=== PATIENT | female | born 1980 | race Caucasian/White ===

== ENCOUNTER 2018-08-19 14:47 | Emergency (ER) | payer SELFPAY ==
[~2018-08-19] VITALS: Ht 162.6 cm; Wt 95.3 kg
[~2018-08-19 14:47] MED LIST: CYCL10TA45 PO; IBUP800T26 PO; NORFLEX; PANT40TA2 PO; PRD20T PO
--- OUTSIDE RECORDS SUMMARY | 2018-08-19 14:52 | XMS REPORT | Clinical Summary ---
Author Author [facility] Organization [facility] Address Unknown Phone Unavailable Care Team Providers Care Event Planning Manager Name Role Phone Rodolfo Mooney MD Unavailable Lalo Johnson DO PCP Aminata Zelaya RN Unavailable Unavailable Celsa Sutherland RN Unavailable Unavailable Patricia Archer MD Unavailable Unavailable Source Comments Some departments are not documenting in the electronic medical record. If you do not see the information that you expected, contact Release of Information in the Health Information Management department at [phone] for further assistance in locating additional records.[facility] Allergies Active Allergy Reactions Severity Noted Date Comments Cephalexin RASH 03/15/2011 Current Medications Prescription Sig. Disp. Refills Start End Date Status Date ibuprofen (MOTRIN) 800 mg Take 800 mg by mouth as Active tablet Needed for Pain. Active Problems Problem Noted Date Polysubstance abuse (HCC) 04/03/2012 Epidural abscess, L2-L5 03/28/2012 HNP (herniated nucleus pulposus) 03/24/2011 Family History Medical History Relation Name Comments Alcohol abuse Father Cancer Father Depression Father Hypertension Father Heart Attack Maternal Grandmother Hyperlipidemia Mother Hypertension Mother Relation Name Status Comments Brother Alive Father Maternal Grandmother Mother Alive Sister Alive Social History Tobacco Use Types Packs/Day Years Used Date Former Smoker Cigarettes Smokeless Tobacco: Never Used Alcohol Use Drinks/Week oz/Week Comments Yes rarely Sex Assigned at Date Recorded Not on file Last Filed Vital Signs Vital Sign Reading Time Taken Blood Pressure 133/85 02/01/2016 10:19 AM [employer] Pulse 61 02/01/2016 10:19 AM [employer] Temperature 36.9 C (98.5 F) 03/28/2012 11:10 AM CDT Respiratory Rate - - Oxygen Saturation 100% 03/28/2012 11:10 AM CDT Inhaled Oxygen - - Concentration Weight 114.8 kg (253 lb) 02/01/2016 10:19 AM [employer] Height 162.6 cm (5' 4") 02/01/2016 10:19 AM [employer] Body Mass Index 43.43 02/01/2016 10:19 AM [employer] Plan of Treatment Health Maintenance Due Date Last Done Comments PHYSICAL (COMPREHENSIVE) 1988 EXAM PERTUSSIS VACCINE 1992 TETANUS VACCINE 1998 CERVICAL CANCER SCREENING 2011 INFLUENZA VACCINE 08/26/2018 HIV SCREENING Completed 02/20/2012 Results Not on filefrom Last 3 Months
--- OUTSIDE RECORDS SUMMARY | 2018-08-19 14:52 | XMS REPORT ---
Author Author CARISA PALUMBO [facility] Address [address] [place] [address] Care Team Providers Care Slot Machine Key Person Name Role Phone PALUMBOKAELYNCARISA Unavailable PROBLEMS Type Condition ICD9-CM Code [id number] Code Onset Dates Condition Status SNOMED Code Problem Tobacco abuse counseling Z71.6 Active 185096580 Problem Morbid obesity E66.01 Active 480340231 Problem Right upper quadrant pain R10.11 Active 525733033 Problem Anxiety F41.9 Active 42484164 Problem Bilateral thoracic back pain M54.6 Active 461307443 Problem Pre-diabetes R73.09 Active 0504456 Problem PCOS (polycystic ovarian syndrome) E28.2 Active 71373387 Problem PMS (premenstrual syndrome) N94.3 Active 89092915 Problem Onychomycosis B35.1 Active 452394616 Problem General medical exam Z00.00 Active 999363075 Problem Substance abuse F19.10 Active 26098684 Problem Tobacco abuse Z72.0 Active 47847467 Problem H/O bursectomy Z98.890 Active 228646589 Problem Lumbago M54.5 Active 950296642 ALLERGIES Substance Reaction Event Type Date Status Keflex Unknown Drug Allergy Apr, Active SOCIAL HISTORY Never Assessed PLAN OF CARE VITAL SIGNS MEDICATIONS Unknown Medications RESULTS No Results PROCEDURES No Known procedures IMMUNIZATIONS No Known Immunizations MEDICAL (GENERAL) HISTORY Type Description Date Medical History abnormal liver function tests Medical History back pain Medical History degenerative disease lumbosacral spine Medical History depression Medical History past drug addiction Surgical History right shoulder arthroscopy 2006 Surgical History right carpal tunnel release Surgical History tonsillectomy and adenoidectomy 1993 Surgical History section 2006 Surgical History Back Surgery. 2010- [facility]/ 2010 and 2011- [facility] 06/2010, 01/2011, 01/2012 Surgical History Right knee scope 10/24/2016 Hospitalization History Surgery(s)/Childbirth(s) only Hospitalization History CHF/ Pneumonia- Post Delivery of Child Hospitalization History Pain r/t back surgery- hospitalized for pain control Hospitalization History [facility] detox in [place] 02/2016 Hospitalization History MSSA after 3rd back surgery
--- OUTSIDE RECORDS SUMMARY | 2018-08-19 14:52 | XMS REPORT ---
Author Author CARISA Shin Organization [facility] Address [address] [place] [address] Care Team Providers Care Hearings Reporter Name Role Phone CARISA Shin Unavailable PROBLEMS Type Condition ICD9-CM Code [id number] Code Onset Dates Condition Status SNOMED Code Problem Lumbar radiculopathy M54.16 Active 031544346 Problem Reactive depression F32.9 Active 81358488 Problem BMI 40.0-44.9, adult Z68.41 Active 101171800 Problem Methamphetamine use F15.10 Active 839059663 Problem Tobacco use disorder, moderate, dependence F17.200 Active 67467715 Problem Cannabis use disorder, severe, dependence F12.20 Active 12535577 Problem Opioid use disorder, severe, in sustained remission F11.21 Active 47768088 Problem Methamphetamine use disorder, severe, 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 62570656 Problem Substance induced mood disorder F19.94 Active 747502912 Problem H/O bursectomy Z98.890 Active 130569571 Problem Tobacco abuse Z72.0 Active 05023888 Problem Onychomycosis B35.1 Active 413099947 Problem Pre-diabetes R73.09 Active 9972025 Problem Substance abuse F19.10 Active 46568968 Problem PMS (premenstrual syndrome) N94.3 Active 37660473 Problem PCOS (polycystic ovarian syndrome) E28.2 Active 85519749 Problem Anxiety F41.9 Active 23309102 ALLERGIES Substance Reaction Event Type Date Status Keflex Unknown Drug Allergy Apr, Active ENCOUNTERS Encounter Location Date Diagnosis [facility] [address] [facility] [id number] [address] Jan, Epigastric pain R10.13 and Methamphetamine use F15.10 [facility] [address] [facility] [id number] [address] Feb, 2018 Methamphetamine use disorder, severe, 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 ; Opioid use disorder, severe, in sustained remission F11.21 ; Tobacco use disorder, moderate, dependence F17.200 ; Cannabis use disorder, severe, dependence F12.20 and Substance induced mood disorder F19.94 [facility] [id number] [place] [address] Nov, BMI 40.0-44.9, adult Z68.41 ; Lumbar radiculopathy M54.16 and Reactive depression F32.9 [place] [id number] [place] [address] 30 Sep, 2017 Strain of lumbar region, initial encounter S39.012A and BMI 40.0-44.9, adult Z68.41 [facility] [id number] [place] [address] Sep, Acute left-sided low back pain with left-sided sciatica M54.42 [place] [id number] [place] [address] Sep, [facility] [address] [address] Sep, Lumbago M54.5 and Anxiety F41.9 [place] [id number] [place] [address] Jul, Tobacco abuse Z72.0 ; Anxiety F41.9 and Bilateral thoracic back pain M54.6 [facility] [id number] [place] [address] Jul, [facility] [address] [address] Jun, Lumbago M54.5 [place] [id number] [place] [address] 07 Apr, 2017 Annual physical exam Z00.00 ; Morbid obesity E66.01 ; Lumbago M54.5 ; History of back surgery Z98.89 ; Pre-diabetes R73.09 ; PCOS ( polycystic ovarian syndrome) E28.2 and Bilateral thoracic back pain M54.6 [facility] [address] [address] Apr, [facility] [id number] [place] [address] Jan, Annual physical exam Z00.00 ; PCOS (polycystic ovarian syndrome) E28.2 ; Substance abuse F19.10 and Pre-diabetes R73.09 [facility] [id number] [place] [address] Nov, Acute non-recurrent pansinusitis J01.40 [facility] [address] [address] Jul, [facility] [address] [address] Jul, [facility] [address] [address] Jul, Medial meniscus tear, right, subsequent encounter S83.241D [facility] [address] [id number] Jun, Dental examination Z01.20 [facility] [address] [id number] Jun, Dental examination Z01.20 [facility] [id number] [place] [address] May, Chondromalacia patellae, 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 [facility] [id number] [place] [address] May, Bilateral thoracic back pain M54.6 ; Substance abuse F19.10 and Tobacco abuse Z72.0 [facility] [id number] [place] [address] Apr, Bilateral low back pain with sciatica, sciatica laterality unspecified M54.40 [place] [id number] [place] [address] 23 Apr, 2016 Bilateral low back pain with sciatica, sciatica laterality unspecified M54.40 [place] [id number] [place] [address] 20 Apr, 2016 Acute right-sided low back pain with right-sided sciatica M54.41 [place] [address] [address] 07 Apr, 2016 PMS (premenstrual syndrome) N94.3 ; Tobacco abuse counseling Z71.6 and Right knee pain, unspecified chronicity M25.561 [place] [address] [address] March, Well woman exam Z01.419 [place] [address] [address] Feb, Methamphetamine addiction F15.20 and Folliculitis L73.9 [place] [address] [address] Feb, [place] [address] [address] Jan, Well woman exam Z01.419 ; Routine gynecological examination V72.31 and Substance abuse F19.10 [facility] [address] [address] Jan, Sore throat J02.9 and Acute bronchitis J20.9 [facility] [id number] [place] [id number] Jan, Dental caries K02.9 [place] [address] [address] Jan, Morbid obesity E66.01 ; Pre-diabetes R73.09 and Onychomycosis B35.1 [facility] [address] [address] Jan, Immunization due Z23 [facility] [address] [id number] [id number] Jan, 2016 Encounter for dental examination Z01.20 [place] [id number] [place] [address] 12 Dec, 2015 Sinusitis, acute maxillary J01.00 [facility] [address] [place] [address]- [address] 27 Nov, 2015 [facility] [id number] [place] [address] Nov, [place] [id number] [place] [address] 8[address] Nov, [facility] [id number] [place] [address]73- [address] Nov, [facility] [id number] [place] [address]97[address] Nov, Bilateral low back pain with sciatica, sciatica laterality unspecified M54.40 ; History of back surgery Z98.89 ; Radiculopathy, thoracic region M54.14 ; Radiculopathy of lumbosacral region M54.17 and Bilateral thoracic back pain M54.6 [place] [address] [place] [address] Nov, Morbid obesity E66.01 and General medical exam Z00.00 [place] [id number] [place] [address] Nov, Morbid obesity E66.01 and General medical exam Z00.00 [place] [id number] [place] [address] 12 Nov, 2015 General medical exam Z00.00 ; Lumbago M54.5 ; History of back surgery Z98.89 ; Bilateral low back pain with sciatica, sciatica laterality unspecified M54.40 ; Radiculopathy, thoracic region M54.14 ; Radiculopathy of lumbosacral region M54.17 and Bilateral thoracic back pain M54.6 [facility] [address] [address] 12 Nov, 2015 General medical exam Z00.00 ; Morbid obesity E66.01 ; Substance abuse F19.10 ; Tobacco abuse Z72.0 ; Tobacco abuse counseling Z71.6 ; Lumbago M54.5 ; History of back surgery Z98.89 and Right upper quadrant pain R10.11 [facility] [address] [facility] [id number] [address] 14 Feb, 2015 [facility] [address] [address] Feb, [facility] [address] [address] Jan, [facility] [address] [address] Jan, [facility] [address] [address] Jan, [facility] [address] [address] Jan, [facility] [address] [address] Oct, [facility] [address] [address] Oct, [facility] [address] [address] Sep, [facility] [address] [address] Sep, [facility] [address] [address] Jul, [facility] [address] [address] Jul, [facility] [id number] [address] May, [facility] [address] [id number] [place] [address] May, [facility] [place] [facility] [address] [id number] [place] [address] May, [facility] [address] [id number] [place] [address] May, [facility] [place] [facility] [address] [id number] [place] [address] Apr, [facility] [address] [id number] [place] [address] Apr, [facility] [address] [id number] [place] [address] Apr, [facility] [address] [facility] [place] [id number] [place] [address] Apr, [facility] [address] [id number] [place] [address] Apr, [facility] [address] [id number] [place] [address] Apr, [facility] [address] [facility] [place] [id number] [place] [address] 18 Apr, 2014 [facility] [place] [facility] [address] [id number] [place] [address] 16 Apr, 2014 [facility] [address] [id number] [place] [address] 15 Apr, 2014 [facility] [place] [facility] [address] [id number] [place] [address] 13 Apr, 2014 [facility] [place] [facility] [address] [id number] [place] [address] 12 Apr, 2014 [facility] [address] [id number] [place] [address] Apr, IMMUNIZATIONS No Known Immunizations SOCIAL HISTORY Never Assessed REASON FOR VISIT Establish Care/ foot and back pain. Reports foot pain has been on and off for a month on right foot. Reports has drop foot on right side from back surgery. C/O back pain feels like someone has fist in her back. CBnatalia RN, Wants a script for nail fungus lamisil didnt work. Per LAS we need to see what her liver function is first. PLAN OF CARE Activity Details Follow Up 3 Months Reason:pcos, back pain. VITAL SIGNS Height 64 in 2017-05-02 Weight 249.4 lbs 2017-05-02 Temperature 98.0 degrees Fahrenheit 2017-05-02 Heart Rate 76 bpm 2017-05-02 Respiratory Rate 20 2017-05-02 BMI 42.80 kg/m2 2017-05-02 Blood pressure systolic 118 mmHg 2017-05-02 Blood pressure diastolic 80 mmHg 2017-05-02 MEDICATIONS Medication Instructions Dosage Frequency Start Date End Date Duration Status Ibuprofen 200 MG Orally every 6 hrs 1 tablet with food or milk as needed 6h Active Metformin HCl 500 MG Orally Twice a day 1 tablet with meals 12h Apr, 30 day(s) Active Nabumetone 500 MG Orally Twice a day 1 tablet 12h Apr, 30 days Active Gabapentin 100 MG Orally 3 times a day 1 tablet 8h Apr, 30 days Active RESULTS Name Result Date Reference Range A1C (IN HOUSE) 2017-05-02 A1C IN HOUSE 5.5 4.3 - 5.6 % Previous A1c 5.6 Lot 0716 Exp date 01/2019 Xray : Spine, Thoracic 2 views (IN HOUSE) 2017-05-02 PROCEDURES Procedure Date Ordered Result Body Site X-RAY EXAM OF THORACIC SPINE May 02, 2017 GLYCATED HEMOGLOBIN TEST May 02, 2017 VENIPUNCT, ROUTINE* May 02, 2017 COMPLETE CBC W/AUTO DIFF WBC May 02, 2017 ASSAY OF INSULIN May 02, 2017 COMPREHEN METABOLIC PANEL May 02, 2017 LIPID PANEL May 02, 2017 INSTRUCTIONS MEDICATIONS ADMINISTERED No Known Medications MEDICAL (GENERAL) HISTORY Type Description Date Medical History abnormal liver function tests Medical History back pain Medical History degenerative disease lumbosacral spine Medical History depression Medical History past drug addiction Surgical History right shoulder arthroscopy 2005 Surgical History right carpal tunnel release 2006/2007 Surgical History tonsillectomy and adenoidectomy 1993 Surgical History section 2005 Surgical History Back Surgery. 2010- [facility]/ 2011 and 2011- [facility] 06/2010, 01/2011, 01/2012 Surgical History Right knee scope 10/24/2016 Hospitalization History Surgery(s)/Childbirth(s) only Hospitalization History CHF/ Pneumonia- Post Delivery of Child Hospitalization History Pain r/t back surgery- hospitalized for pain control x3 Hospitalization History [facility] detox in [place] 02/2016 Hospitalization History MSSA after 3rd back surgery
--- OUTSIDE RECORDS SUMMARY | 2018-08-19 14:52 | XMS REPORT ---
Author Author JULIETA MEDINA [facility] [employer] Address Unknown Phone Unavailable Care Team Providers Care Financial Aid Name Role Phone JULIETA MEDINA Unavailable Allergies No Known Allergies Problems Problem Type Condition Code Onset Dates Condition Status Problem Tobacco abuse counseling Z71.6 Active Problem Substance abuse F19.10 Active Problem Tobacco abuse Z72.0 Active Problem PMS (premenstrual syndrome) N94.3 Active Problem Pre-diabetes R73.09 Active Problem Bilateral thoracic back pain M54.6 Active Problem General medical exam Z00.00 Active Problem Morbid obesity E66.01 Active Problem Onychomycosis B35.1 Active Problem PCOS (polycystic ovarian syndrome) E28.2 Active Assessment Chondromalacia patellae, 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
--- OUTSIDE RECORDS SUMMARY | 2018-08-19 14:52 | XMS REPORT ---
Author Author KIMANI POLLACK Organization [facility] Address [address] [place] [address] Care Team Providers Care Relay Repairer Name Role Phone KIMANI POLLACK Unavailable PROBLEMS Type Condition ICD9-CM Code [id number] Code Onset Dates Condition Status SNOMED Code Problem Lumbar radiculopathy M54.16 Active 570523023 Problem Reactive depression F32.9 Active 68823233 Problem BMI 40.0-44.9, adult Z68.41 Active 753615991 Problem Methamphetamine use F15.10 Active 799028127 Problem Tobacco use disorder, moderate, dependence F17.200 Active 18977334 Problem Cannabis use disorder, severe, dependence F12.20 Active 20164072 Problem Opioid use disorder, severe, in sustained remission F11.21 Active 24806117 Problem Methamphetamine use disorder, severe, 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 05727222 Problem Substance induced mood disorder F19.94 Active 019717029 Problem H/O bursectomy Z98.890 Active 132541077 Problem Tobacco abuse Z72.0 Active 27174801 Problem Onychomycosis B35.1 Active 275761344 Problem Pre-diabetes R73.09 Active 5334768 Problem Substance abuse F19.10 Active 43637363 Problem PMS (premenstrual syndrome) N94.3 Active 76440073 Problem PCOS (polycystic ovarian syndrome) E28.2 Active 62544283 Problem Anxiety F41.9 Active 54409789 ALLERGIES Substance Reaction Event Type Date Status Keflex facial rash Drug Allergy March, Active ENCOUNTERS Encounter Location Date Diagnosis [facility] [id number] [place] [address] March, Lumbar radiculopathy M54.16 and Pre-diabetes R73.09 [facility] [id number] [address] 01 Mar, 2018 Epigastric pain R10.13 and Methamphetamine use F15.10 [facility] [address] [address] 06 Dec, 2018 Methamphetamine use disorder, severe, 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 ; Opioid use disorder, severe, in sustained remission F11.21 ; Tobacco use disorder, moderate, dependence F17.200 ; Cannabis use disorder, severe, dependence F12.20 and Substance induced mood disorder F19.94 [place] [address] [address] Nov, BMI 40.0-44.9, adult Z68.41 ; Lumbar radiculopathy M54.16 and Reactive depression F32.9 [place] [address] [address] 30 Sep, 2017 Strain of lumbar region, initial encounter S39.012A and BMI 40.0-44.9, adult Z68.41 [facility] [address] [address] Sep, Acute left-sided low back pain with left-sided sciatica M54.42 [place] [address] [address] Sep, [place] [address] [address] Sep, Lumbago M54.5 and Anxiety F41.9 [place] [address] [address] Jul, Tobacco abuse Z72.0 ; Anxiety F41.9 and Bilateral thoracic back pain M54.6 [place] [address] [address] Jul, [facility] [address] [address] Jun, Lumbago M54.5 [place] [address] [address] Apr, Annual physical exam Z00.00 ; Morbid obesity E66.01 ; Lumbago M54.5 ; History of back surgery Z98.89 ; Pre-diabetes R73.09 ; PCOS ( polycystic ovarian syndrome) E28.2 and Bilateral thoracic back pain M54.6 [facility] [id number] [place] [address] 05 Apr, 2017 [facility] [address] [address] Jan, Annual physical exam Z00.00 ; PCOS (polycystic ovarian syndrome) E28.2 ; Substance abuse F19.10 and Pre-diabetes R73.09 [facility] [id number] [place] [address] Nov, Acute non-recurrent pansinusitis J01.40 [place] [address] [address] Jul, [facility] [id number] [place] [address] Jul, [place] [address] [address] Jul, Medial meniscus tear, right, subsequent encounter S83.241D [facility] [id number] [place] [id number] Jun, Dental examination Z01.20 [facility] [address] [id number] Jun, Dental examination Z01.20 [facility] [id number] [place] [address]- [address] May, Chondromalacia patellae, 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 [facility] [id number] [place] [address]- [address] May, Bilateral thoracic back pain M54.6 ; Substance abuse F19.10 and Tobacco abuse Z72.0 [place] [address] [place] [address] 29 Apr, 2016 Bilateral low back pain with sciatica, sciatica laterality unspecified M54.40 [facility] [address] [address] 23 Apr, 2016 Bilateral low back pain with sciatica, sciatica laterality unspecified M54.40 [facility] [address] [address] 20 Apr, 2016 Acute right-sided low back pain with right-sided sciatica M54.41 [place] [address] [address] 07 Apr, 2016 PMS (premenstrual syndrome) N94.3 ; Tobacco abuse counseling Z71.6 and Right knee pain, unspecified chronicity M25.561 [facility] [address] [address] March, Well woman exam Z01.419 [place] [address] [address] Feb, Methamphetamine addiction F15.20 and Folliculitis L73.9 [place] [address] [address] Feb, [facility] [address] [address] Jan, Well woman exam Z01.419 ; Routine gynecological examination V72.31 and Substance abuse F19.10 [facility] [id number] [place] [address] Jan, Sore throat J02.9 and Acute bronchitis J20.9 [facility] [address] [id number] Jan, Dental caries K02.9 [facility] [address] [address] Jan, Morbid obesity E66.01 ; Pre-diabetes R73.09 and Onychomycosis B35.1 [facility] [address] [address] 22 Jan, 2016 Immunization due Z23 [facility] [address] [address] 15 Jan, 2016 Encounter for dental examination Z01.20 [facility] [id number] [place] [address] 19602- [address] 12 Dec, 2015 Sinusitis, acute maxillary J01.00 [facility] [address] [place] [address] 112[address]- [address] 27 Nov, 2015 [facility] [id number] [place] [address]- [address] 22 Nov, 2015 [facility] [id number] [place] [address] 90[address]- [address] Nov, [facility] [id number] [place] [address]60- [address] Nov, [facility] [id number] [place] [address] Nov, Bilateral low back pain with sciatica, sciatica laterality unspecified M54.40 ; History of back surgery Z98.89 ; Radiculopathy, thoracic region M54.14 ; Radiculopathy of lumbosacral region M54.17 and Bilateral thoracic back pain M54.6 [facility] [address] [place] [address] 39[address] Nov, Morbid obesity E66.01 and General medical exam Z00.00 [facility] [address] [place] [address] 26[address]- [address] 19 Nov, 2015 Morbid obesity E66.01 and General medical exam Z00.00 [facility] [address] [place] [address] 95958- [address] 12 Nov, 2015 General medical exam Z00.00 ; Lumbago M54.5 ; Bilateral low back pain with sciatica, sciatica laterality unspecified M54.40 ; History of back surgery Z98.89 ; Radiculopathy, thoracic region M54.14 ; Radiculopathy of lumbosacral region M54.17 and Bilateral thoracic back pain M54.6 [facility] [address] [address] 12 Nov, 2015 General medical exam Z00.00 ; Morbid obesity E66.01 ; Substance abuse F19.10 ; Tobacco abuse Z72.0 ; Tobacco abuse counseling Z71.6 ; Lumbago M54.5 ; History of back surgery Z98.89 and Right upper quadrant pain R10.11 [facility] [id number] [place] [address]- [address] 14 Feb, 2015 [facility] [id number] [place] [address]- [address] Feb, [facility] [id number] [place] [address] 6[address]- [address] Jan, [facility] [id number] [place] [address] 33586- 64[address] Jan, [facility] [id number] [place] [address] 48475- 9[address] Jan, [facility] [address] [address] Jan, [facility] [address] [place] [address] 79[address]- [address] Oct, [facility] [id number] [address] Oct, [facility] [id number] [place] [address] 500923- 0[address] Sep, [facility] [id number] [place] [address] [id number]- 0[address] Sep, [facility] [id number] [place] [address] 976023- 9[address] Jul, [facility] [place] [facility] [address] [id number] [place] [address] Jul, [facility] [place] [facility] [address] [id number] [place] [address] May, [facility] [place] [facility] [address] [id number] [place] [address] May, [facility] [place] [facility] [address] [id number] [place] [address] May, [facility] [place] [facility] [address] [id number] [place] [address] May, [facility] [place] [facility] [address] [id number] [place] [address] Apr, [facility] [place] [facility] [address] [id number] [place] [address] Apr, [facility] [place] [facility] [address] [id number] [place] [address]- [address] Apr, [facility] [place] [facility] [address] [id number] [place] [address] Apr, [facility] [place] [facility] [address] [id number] [place] [address] 1985 Apr, [facility] [place] [facility] [address] [id number] [place] [address]- [address] Apr, [facility] [place] [facility] [address] [id number] [place] [address]- [address] 18 Apr, 2014 [facility] [place] [facility] [address] [id number] [place] [address]- [address] 16 Apr, 2014 [facility] [place] [facility] [address] [id number] [place] [address] 15 Apr, 2014 [facility] [place] [facility] [address] [id number] [place] [address]- 28[address] 13 Apr, 2014 [facility] [place] [facility] [address] [id number] [place] [address] Apr, [facility] [address] [facility] [id number] [place] [address] Apr, IMMUNIZATIONS No Known Immunizations SOCIAL HISTORY Never Assessed REASON FOR VISIT lower back pain, hip pain, left leg pain. PT has had multiple back surgeries and is in constant pain-[place] PLAN OF CARE Activity Details Follow Up 3 Months Reason: VITAL SIGNS Height 64 in 2018-04-04 Weight 232.7 lbs 2018-04-04 Temperature 98.3 degrees Fahrenheit 2018-04-04 Heart Rate 68 bpm 2018-04-04 Respiratory Rate 20 2018-04-04 BMI 39.94 kg/m2 2018-04-04 Blood pressure systolic 104 mmHg 2018-04-04 Blood pressure diastolic 72 mmHg 2018-04-04 MEDICATIONS Medication Instructions Dosage Frequency Start Date End Date Duration Status Cyclobenzaprine HCl 10 mg Orally 2 times a day 1 tablet as needed 12h Sep, Active Chantix 1 MG Orally Twice a day 1 tablet 12h Active Ibuprofen 800 MG Orally Three times a day 1 tablet 8h Active Lyrica 150 MG Orally Three times a day 1 cap 8h March, Active RESULTS Name Result Date Reference Range A1C (IN HOUSE) 2018-04-04 A1C IN HOUSE 5.2 4.3 - 5.6 % Previous A1c 5.5 Lot [id number] Exp date 12/2019 PROCEDURES Procedure Date Ordered Result Body Site GLYCATED HEMOGLOBIN TEST April 04, 2018 INSTRUCTIONS MEDICATIONS ADMINISTERED No Known Medications MEDICAL (GENERAL) HISTORY Type Description Date Medical History abnormal liver function tests Medical History back pain Medical History degenerative disease lumbosacral spine Medical History depression Medical History past drug addiction Surgical History right shoulder arthroscopy 2005 Surgical History right carpal tunnel release Surgical History tonsillectomy and adenoidectomy 1993 Surgical History section 2006 Surgical History Back Surgery. 2010- [facility]/ 2010 and 2011- [facility] 06/2010, 01/2011, 01/2012 Surgical History Right knee scope 10/24/2016 Hospitalization History Surgery(s)/Childbirth(s) only Hospitalization History CHF/ Pneumonia- Post Delivery of Child Hospitalization History Pain r/t back surgery- hospitalized for pain control x3 Hospitalization History [facility] detox in [place] 02/2016 Hospitalization History MSSA after 3rd back surgery
--- OUTSIDE RECORDS SUMMARY | 2018-08-19 14:53 | XMS REPORT ---
Author Author KIMANI POLLACK [facility] Address [address] [place] [address] Care Team Providers Care Business Liaison Officer Name Role Phone KMIANI POLLACK Unavailable PROBLEMS Type Condition ICD9-CM Code JEH39-HU Code Onset Dates Condition Status SNOMED Code Problem Lumbar radiculopathy M54.16 Active 574150268 Problem Reactive depression F32.9 Active 08920949 Problem BMI 40.0-44.9, adult Z68.41 Active 893234530 Problem Methamphetamine use F15.10 Active 424051758 Problem Tobacco use disorder, moderate, dependence F17.200 Active 95034120 Problem Cannabis use disorder, severe, dependence F12.20 Active 57317492 Problem Opioid use disorder, severe, in sustained remission F11.21 Active 63317674 Problem Methamphetamine use disorder, severe, 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 05590577 Problem Substance induced mood disorder F19.94 Active 306713343 Problem H/O bursectomy Z98.890 Active 549673611 Problem Tobacco abuse Z72.0 Active 96992787 Problem Onychomycosis B35.1 Active 474183489 Problem Pre-diabetes R73.09 Active 5861610 Problem Substance abuse F19.10 Active 21909413 Problem PMS (premenstrual syndrome) N94.3 Active 23897082 Problem PCOS (polycystic ovarian syndrome) E28.2 Active 08565175 Problem Anxiety F41.9 Active 28359577 ALLERGIES Substance Reaction Event Type Date Status Keflex Unknown Drug Allergy Jul, Active ENCOUNTERS Encounter Location Date Diagnosis [facility] [address] [facility] [id number] [address] Jan, Epigastric pain R10.13 and Methamphetamine use F15.10 [facility] [address] [facility] [id number], [place] [address] Dec, Methamphetamine use disorder, severe, 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 ; Opioid use disorder, severe, in sustained remission F11.21 ; Tobacco use disorder, moderate, dependence F17.200 ; Cannabis use disorder, severe, dependence F12.20 and Substance induced mood disorder F19.94 [place] [id number] [place] [address] Nov, BMI 40.0-44.9, adult Z68.41 ; Lumbar radiculopathy M54.16 and Reactive depression F32.9 [place] [id number] [place] [address] Sep, Strain of lumbar region, initial encounter S39.012A and BMI 40.0-44.9, adult Z68.41 [facility] [id number] [place] [address] Sep, Acute left-sided low back pain with left-sided sciatica M54.42 [place] [id number] [place] [address] Sep, [address] [address] Sep, Lumbago M54.5 and Anxiety F41.9 [place] [id number] [place] [address] Jul, Tobacco abuse Z72.0 ; Anxiety F41.9 and Bilateral thoracic back pain M54.[address] [address] Jul, [place] [address] [address] Jun, Lumbago M54.[address] [address] Apr, Annual physical exam Z00.00 ; Morbid obesity E66.01 ; Lumbago M54.5 ; History of back surgery Z98.89 ; Pre-diabetes R73.09 ; PCOS ( polycystic ovarian syndrome) E28.2 and Bilateral thoracic back pain M54.6 [facility] [id number] [place] [address] Apr, [facility] [address] [address] Jan, Annual physical exam Z00.00 ; PCOS (polycystic ovarian syndrome) E28.2 ; Substance abuse F19.10 and Pre-diabetes R73.09 [facility] [id number] [place] [address] Nov, Acute non-recurrent pansinusitis J01.40 [facility] [address] [address] Jul, [facility] [address] [address] Jul, [facility] [address] [address] Jul, Medial meniscus tear, right, subsequent encounter S83.241D [facility] [address] [id number] Jun, Dental examination Z01.20 [facility] [address] [id number] Jun, Dental examination Z01.20 [facility] [id number] [place] [address] May, Chondromalacia patellae, 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 [facility] [id number] [place] [address] May, Bilateral thoracic back pain M54.6 ; Substance abuse F19.10 and Tobacco abuse Z72.0 [facility] [id number] [place] [address] Apr, Bilateral low back pain with sciatica, sciatica laterality unspecified M54.40 [facility] [address] [place] [address] 23 Apr, 2016 Bilateral low back pain with sciatica, sciatica laterality unspecified M54.40 [place] [address] [address] 20 Apr, 2016 Acute right-sided low back pain with right-sided sciatica M54.41 [place] [address] [address] 07 Apr, 2016 PMS (premenstrual syndrome) N94.3 ; Tobacco abuse counseling Z71.6 and Right knee pain, unspecified chronicity M25.561 [place] [address] [address] March, Well woman exam Z01.419 [place] [address] [address] Feb, Methamphetamine addiction F15.20 and Folliculitis L73.9 [facility] [address] [address] Feb, [place] [address] [address] Jan, Well woman exam Z01.419 ; Routine gynecological examination V72.31 and Substance abuse F19.10 [facility] [address] [address] Jan, Sore throat J02.9 and Acute bronchitis J20.9 [facility] [address] [id number] [place] [id number] Jan, Dental caries K02.9 [facility] [address] [address] Jan, Morbid obesity E66.01 ; Pre-diabetes R73.09 and Onychomycosis B35.1 [facility] [id number] [place] [address] Jan, Immunization due Z23 [facility] [address] [place] [address] [id number] [id number] Jan, 2016 Encounter for dental examination Z01.20 [facility] [id number] [place] [address] 12 Dec, 2015 Sinusitis, acute maxillary J01.00 [facility] [address], [place] [address] 27 Nov, 2015 [facility] [id number] [place] [address] Nov, [facility] [address], [place] [address] Nov, [facility] [address] [place] [address] Nov, [facility] [address] [place] [address] Nov, Bilateral low back pain with sciatica, sciatica laterality unspecified M54.40 ; History of back surgery Z98.89 ; Radiculopathy, thoracic region M54.14 ; Radiculopathy of lumbosacral region M54.17 and Bilateral thoracic back pain M54.6 [place] [address], [place] [address] Nov, Morbid obesity E66.01 and General medical exam Z00.00 [place] [address], [place] [address] Nov, Morbid obesity E66.01 and General medical exam Z00.00 [place] [address], [place] [address] 12 Nov, 2015 General medical exam Z00.00 ; Lumbago M54.5 ; History of back surgery Z98.89 ; Bilateral low back pain with sciatica, sciatica laterality unspecified M54.40 ; Radiculopathy, thoracic region M54.14 ; Radiculopathy of lumbosacral region M54.17 and Bilateral thoracic back pain M54.6 [facility] [address], [place] [address] 12 Nov, 2015 General medical exam Z00.00 ; Morbid obesity E66.01 ; Substance abuse F19.10 ; Tobacco abuse Z72.0 ; Tobacco abuse counseling Z71.6 ; Lumbago M54.5 ; History of back surgery Z98.89 and Right upper quadrant pain R10.11 [facility] [address], [place] [address] 14 Feb, 2015 [facility] [address], [place] [address] Feb, [facility] [id number] [place] [address] Jan, [facility] [id number] [place] [address] Jan, [facility] [id number] [place] [address] Jan, [facility] [address], [place] [address] Jan, [facility] [address], [place] [address] Oct, [facility] [address], [place] [address] Oct, [facility] [address], [place] [address] Sep, [facility] [address], [place] [address] Sep, [facility] [id number] [place] [address] Jul, [facility] [address] Jul, [facility] [id number] [place] [address] May, [facility] [address] [id number] [place] [address] May, [facility] [address] [facility] [id number], [place] [address] May, [facility] [address] [facility] [id number] [place] [address] May, [facility] [address] [id number], [place] [address] Apr, [facility] [address] [id number] [place] [address] Apr, [facility] [address] [facility] [id number] [place] [address] Apr, [facility] [address] [facility] [id number], [place] [address] Apr, [facility] [address] [facility] [id number], [place] [address] Apr, [facility] [address] [facility] [id number], [place] [address] Apr, [facility] [address] [facility] [id number], [place] [address] Apr, [facility] [address] [facility] [id number], [place] [address] 16 Apr, 2014 [facility] [address] [facility] [id number], [place] [address] 15 Apr, 2014 [facility] [address] [facility] [id number], [place] [address] 13 Apr, 2014 [facility] [address] [facility] [id number], [place] [address] Apr, [facility] [address] [facility] [id number], [place] [address] Apr, IMMUNIZATIONS No Known Immunizations SOCIAL HISTORY Never Assessed REASON FOR VISIT wants to talk about possibilty of uping the dosage of Neurotin LGorhamMA, wanting to start Chantix again PLAN OF CARE Activity Details Follow Up 4 Weeks Reason: VITAL SIGNS Height 64 in 2017-08-21 Weight 241 lbs 2017-08-21 Temperature 98.3 degrees Fahrenheit 2017-08-21 Heart Rate 96 bpm 2017-08-21 Respiratory Rate 20 2017-08-21 BMI 41.36 kg/m2 2017-08-21 Blood pressure systolic 130 mmHg 2017-08-21 Blood pressure diastolic 88 mmHg 2017-08-21 MEDICATIONS Medication Instructions Dosage Frequency Start Date End Date Duration Status Gabapentin 100 MG Orally 3 times a day 1 tablet 8h Apr, 30 days Active Metformin HCl 500 MG Orally Twice a day 1 tablet with meals 12h Apr, 30 day(s) Active Zoloft 50 mg Orally Once a day 1 tablet 24h Jul, 30 day(s) Active Chantix Starting Month Tony 0.5 MG X 11 & 1 mg x 42 Orally 2 times a day as directed Jul, Aug, 30 days Active Nabumetone 500 MG Orally Twice a day 1 tablet 12h Apr, 30 days Active RESULTS No Results PROCEDURES No Known procedures INSTRUCTIONS MEDICATIONS ADMINISTERED No Known Medications MEDICAL (GENERAL) HISTORY Type Description Date Medical History abnormal liver function tests Medical History back pain Medical History degenerative disease lumbosacral spine Medical History depression Medical History past drug addiction Surgical History right shoulder arthroscopy 2005 Surgical History right carpal tunnel release Surgical History tonsillectomy and adenoidectomy 1993 Surgical History section 2005 Surgical History Back Surgery. 2009- [facility] / 2010 and 2011- [facility] 06/2010, 01/2011, 01/2012 Surgical History Right knee scope 10/24/2016 Hospitalization History Surgery(s)/Childbirth(s) only Hospitalization History CHF/ Pneumonia- Post Delivery of Child Hospitalization History Pain r/t back surgery- hospitalized for pain control x3 Hospitalization History [facility] in [place] 02/2016 Hospitalization History [facility] after 3rd back surgery
--- OUTSIDE RECORDS SUMMARY | 2018-08-19 14:53 | XMS REPORT ---
Author Author CARTER SENIOR Organization [facility] Address [address] [place] [address] Care Team Providers Care Line Worker Name Role Phone CARTER SENIOR Unavailable PROBLEMS Type Condition ICD9-CM Code BPT55-MS Code Onset Dates Condition Status SNOMED Code Problem Lumbar radiculopathy M54.16 Active 189375841 Problem Reactive depression F32.9 Active 87076465 Problem BMI 40.0-44.9, adult Z68.41 Active 674680122 Problem Methamphetamine use F15.10 Active 092948542 Problem Tobacco use disorder, moderate, dependence F17.200 Active 22211882 Problem Cannabis use disorder, severe, dependence F12.20 Active 27564897 Problem Opioid use disorder, severe, in sustained remission F11.21 Active 27247700 Problem Methamphetamine use disorder, severe, 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 94619459 Problem Substance induced mood disorder F19.94 Active 799278688 Problem H/O bursectomy Z98.890 Active 934141610 Problem Tobacco abuse Z72.0 Active 56118388 Problem Onychomycosis B35.1 Active 934546948 Problem Pre-diabetes R73.09 Active 2806232 Problem Substance abuse F19.10 Active 16323839 Problem PMS (premenstrual syndrome) N94.3 Active 81827272 Problem PCOS (polycystic ovarian syndrome) E28.2 Active 14710650 Problem Anxiety F41.9 Active 70712857 ALLERGIES Substance Reaction Event Type Date Status Keflex Unknown Drug Allergy Sep, Active ENCOUNTERS Encounter Location Date Diagnosis [facility] [address] [facility] [id number] [address] March, Lumbar radiculopathy M54.16 and Pre-diabetes R73.09 [facility] [address] [facility] [id number] [address] Jan, Epigastric pain R10.13 and Methamphetamine use F15.10 [facility] [address] [place] [id number] [place] [address] 06 Dec, 2018 Methamphetamine use disorder, severe, 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 ; Opioid use disorder, severe, in sustained remission F11.21 ; Tobacco use disorder, moderate, dependence F17.200 ; Cannabis use disorder, severe, dependence F12.20 and Substance induced mood disorder F19.94 [place] [address] [address] Nov, BMI 40.0-44.9, adult Z68.41 ; Lumbar radiculopathy M54.16 and Reactive depression F32.9 [place] [address] [address] Sep, Strain of lumbar region, initial encounter S39.012A and BMI 40.0-44.9, adult Z68.41 [facility] [address] [address] Sep, Acute left-sided low back pain with left-sided sciatica M54.42 [place] [address] [address] Sep, [place] [address] [address] Sep, Lumbago M54.5 and Anxiety F41.9 [place] [address] [address] Jul, Tobacco abuse Z72.0 ; Anxiety F41.9 and Bilateral thoracic back pain M54.6 [place] [address] [address] Jul, [facility] [address] [address] Jun, Lumbago M54.5 [place] [address] [address] Apr, Annual physical exam Z00.00 ; Morbid obesity E66.01 ; Lumbago M54.5 ; History of back surgery Z98.89 ; Pre-diabetes R73.09 ; PCOS ( polycystic ovarian syndrome) E28.2 and Bilateral thoracic back pain M54.6 [facility] [address] [place] [id number] [place] [address] 05 Apr, 2017 [facility] [address] [address] Jan, Annual physical exam Z00.00 ; PCOS (polycystic ovarian syndrome) E28.2 ; Substance abuse F19.10 and Pre-diabetes R73.09 [facility] [address] [address] Nov, Acute non-recurrent pansinusitis J01.40 [facility] [address] [address] Jul, [facility] [address] [address] Jul, [place] [address] [address] Jul, Medial meniscus tear, right, subsequent encounter S83.241D [facility] [address] [id number] Jun, Dental examination Z01.20 [facility] [address] [id number] Jun, Dental examination Z01.20 [facility] [address] [place] [id number] [place] [address] May, Chondromalacia patellae, 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 [facility] [address] [address] May, Bilateral thoracic back pain M54.6 ; Substance abuse F19.10 and Tobacco abuse Z72.0 [facility] [address] [address] 29 Apr, 2016 Bilateral low back pain with sciatica, sciatica laterality unspecified M54.40 [facility] [address] [address] 23 Apr, 2016 Bilateral low back pain with sciatica, sciatica laterality unspecified M54.40 [facility] [address] [address] 20 Apr, 2016 Acute right-sided low back pain with right-sided sciatica M54.41 [place] [address] [address] 07 Apr, 2016 PMS (premenstrual syndrome) N94.3 ; Tobacco abuse counseling Z71.6 and Right knee pain, unspecified chronicity M25.561 [facility] [address] [address] March, Well woman exam Z01.419 [place] [address] [address] Feb, Methamphetamine addiction F15.20 and Folliculitis L73.9 [place] [address] [address] Feb, [facility] [address] [address] Jan, Well woman exam Z01.419 ; Routine gynecological examination V72.31 and Substance abuse F19.10 [facility] [id number] [place] [address] Jan, Sore throat J02.9 and Acute bronchitis J20.9 [facility] [address] [id number] Jan, Dental caries K02.9 [facility] [address] [address] Jan, Morbid obesity E66.01 ; Pre-diabetes R73.09 and Onychomycosis B35.1 [facility] [address] [id number] [address] 22 Jan, 2016 Immunization due Z23 [facility] [address] [id number] 15 Jan, 2016 Encounter for dental examination Z01.20 [facility] [address] [address] 12 Dec, 2015 Sinusitis, acute maxillary J01.00 [facility] [address] [address] 27 Nov, 2015 [facility] [address] [place] [id number] [place] [address] 22 Nov, 2015 [facility] [address] [place] [address] Nov, [facility] [address] [place] [id number] [place] [address] Nov, [facility] [address] [address] Nov, Bilateral low back pain with sciatica, sciatica laterality unspecified M54.40 ; History of back surgery Z98.89 ; Radiculopathy, thoracic region M54.14 ; Radiculopathy of lumbosacral region M54.17 and Bilateral thoracic back pain M54.6 [facility] [address] [address] Nov, Morbid obesity E66.01 and General medical exam Z00.00 [facility] [address] [address] 19 Nov, 2015 Morbid obesity E66.01 and General medical exam Z00.00 [facility] [address] [address] 12 Nov, 2015 General medical exam Z00.00 ; Lumbago M54.5 ; History of back surgery Z98.89 ; Bilateral low back pain with sciatica, sciatica laterality unspecified M54.40 ; Radiculopathy, thoracic region M54.14 ; Radiculopathy of lumbosacral region M54.17 and Bilateral thoracic back pain M54.6 [facility] [address] [id number] [place] [address] 12 Nov, 2015 General medical exam Z00.00 ; Morbid obesity E66.01 ; Substance abuse F19.10 ; Tobacco abuse Z72.0 ; Tobacco abuse counseling Z71.6 ; Lumbago M54.5 ; History of back surgery Z98.89 and Right upper quadrant pain R10.11 [facility] [address] [id number] [place] [address] 14 Feb, 2015 [facility] [id number] [place] [address] Feb, [facility] [id number] [place] [address] Jan, [facility] [id number] [place] [address] Jan, [facility] [id number] [place] [address] Jan, [facility] [id number] [place] [address] Jan, [facility] [id number] [place] [address] Oct, [facility] [id number] [place] [address]- [address] Oct, [facility] [id number] [place] [address]- [address] Sep, [facility] [id number] [place] [address] Sep, [facility] [id number] [place] [address] Jul, [facility] [place] [facility] [address] [id number] [place] [address] Jul, [facility] [place] [facility] [address] [id number] [place] [address] May, [facility] [place] [facility] [address] [id number] [place] [address] May, [facility] [place] [facility] [address] [id number] [place] [address] May, [facility] [place] [facility] [address] [id number] [place] [address] May, [facility] [place] [facility] [address] [id number] [place] [address] Apr, [facility] [place] [facility] [address] [id number] [place] [address] Apr, [facility] [place] [facility] [address] [id number] [place] [address] Apr, [facility] [place] [facility] [address] [id number] [place] [address] Apr, [facility] [place] [facility] [address] [id number] [place] [address] Apr, [facility] [place] [facility] [address] [id number] [place] [address] Apr, [facility] [place] [facility] [address] [id number] [place] [address] 18 Apr, 2014 [facility] [place] [facility] [address] [id number] [place] [address] 16 Apr, 2014 [facility] [place] [facility] [address] [id number] [place] [address] 15 Apr, 2014 [facility] [place] [facility] [address] [id number] [place] [address] 13 Apr, 2014 [facility] [place] [facility] [address] [id number] [place] [address] Apr, [facility] [address] [facility] [id number] [place] [address] Apr, IMMUNIZATIONS Vaccine Route Administration Date Status SOLUMEDROL (UP TO 125 MG) IM Intramuscular Oct 24, 2017 Administered SOCIAL HISTORY Never Assessed REASON FOR VISIT back pain/getting up in truck and felt back caught PLAN OF CARE VITAL SIGNS Height 64 in 2017-10-24 Weight 249 lbs 2017-10-24 Temperature 98.1 degrees Fahrenheit 2017-10-24 Heart Rate 92 bpm 2017-10-24 Respiratory Rate 22 2017-10-24 BMI 42.74 kg/m2 2017-10-24 Blood pressure systolic 128 mmHg 2017-10-24 Blood pressure diastolic 84 mmHg 2017-10-24 MEDICATIONS Medication Instructions Dosage Frequency Start Date End Date Duration Status Metformin HCl 500 MG Orally Twice a day 1 tablet with meals 12h 07 Apr, 2017 30 day(s) Active Nabumetone 500 MG Orally Twice a day 1 tablet 12h 30 Active PredniSONE 20 MG Orally Once a day 1 tablet 24h Sep, Oct, 30 day(s) Active Ibuprofen 200 MG Orally every 6 hrs 1 tablet with food or milk as needed 6h Not-Taking Zoloft 100 MG Orally Once a day 1 tablet 24h Jul, 30 day(s) Active Gabapentin 300 MG Orally 3 times a day 1 tablet 8h 30 Active Cyclobenzaprine HCl 10 mg Orally 2 times a day 1 tablet as needed 12h Sep, Active RESULTS No Results PROCEDURES Procedure Date Ordered Result Body Site SOLUMEDROL (UP TO 125 MG) Oct 24, 2017 THER/PROPH/DIAG INJ, SC/IM Oct 24, 2017 INSTRUCTIONS MEDICATIONS ADMINISTERED No Known Medications MEDICAL (GENERAL) HISTORY Type Description Date Medical History abnormal liver function tests Medical History back pain Medical History degenerative disease lumbosacral spine Medical History depression Medical History past drug addiction Surgical History right shoulder arthroscopy 2006 Surgical History right carpal tunnel release 2006/2007 Surgical History tonsillectomy and adenoidectomy 1993 Surgical History section 2006 Surgical History Back Surgery. 2010- [facility]/ 2010 and 2011- [facility] 06/2010, 01/2011, 01/2012 Surgical History Right knee scope 10/24/2016 Hospitalization History Surgery(s)/Childbirth(s) only Hospitalization History CHF/ Pneumonia- Post Delivery of Child Hospitalization History Pain r/t back surgery- hospitalized for pain control x3 Hospitalization History [facility] [place] 02/2016 Hospitalization History [facility] after 3rd back surgery
--- OUTSIDE RECORDS SUMMARY | 2018-08-19 14:53 | XMS REPORT ---
Author Author CARISA Shin Organization [facility] Address [address] [place] [address] Care Team Providers Care Environmental Compliance Manager Name Role Phone CARISA Shin Unavailable PROBLEMS Type Condition ICD9-CM Code SEQ57-TB Code Onset Dates Condition Status SNOMED Code Problem Lumbar radiculopathy M54.16 Active 692747034 Problem Reactive depression F32.9 Active 67739329 Problem BMI 40.0-44.9, adult Z68.41 Active 276280157 Problem Methamphetamine use F15.10 Active 594880219 Problem Tobacco use disorder, moderate, dependence F17.200 Active 37986221 Problem Cannabis use disorder, severe, dependence F12.20 Active 39076337 Problem Opioid use disorder, severe, in sustained remission F11.21 Active 76002330 Problem Methamphetamine use disorder, severe, 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 35107963 Problem Substance induced mood disorder F19.94 Active 158091928 Problem H/O bursectomy Z98.890 Active 260103035 Problem Tobacco abuse Z72.0 Active 63715125 Problem Onychomycosis B35.1 Active 124415754 Problem Pre-diabetes R73.09 Active 9249889 Problem Substance abuse F19.10 Active 41878148 Problem PMS (premenstrual syndrome) N94.3 Active 81603442 Problem PCOS (polycystic ovarian syndrome) E28.2 Active 15002447 Problem Anxiety F41.9 Active 30495219 ALLERGIES No Information ENCOUNTERS Encounter Location Date Diagnosis [facility] [address] 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 ; Opioid use disorder, severe, in sustained remission F11.21 ; Tobacco use disorder, moderate, dependence F17.200 ; Cannabis use disorder, severe, dependence F12.20 and Substance induced mood disorder F19.94 [place] [id number] [place] [address] Nov, BMI 40.0-44.9, adult Z68.41 ; Lumbar radiculopathy M54.16 and Reactive depression F32.9 [place] [address] [address] Sep, Strain of lumbar region, initial encounter S39.012A and BMI 40.0-44.9, adult Z68.41 [facility] [address] [address] Sep, Acute left-sided low back pain with left-sided sciatica M54.42 [place] [address] [address] Sep, [place] [address] [address] Sep, Lumbago M54.5 and Anxiety F41.[address] [address] Jul, Tobacco abuse Z72.0 ; Anxiety F41.9 and Bilateral thoracic back pain M54.6 [place] [address] [address] Jul, [place] [address] [address] Jun, Lumbago M54.[address] [address] Apr, Annual physical exam Z00.00 ; Morbid obesity E66.01 ; Lumbago M54.5 ; History of back surgery Z98.89 ; Pre-diabetes R73.09 ; PCOS ( polycystic ovarian syndrome) E28.2 and Bilateral thoracic back pain M54.6 [facility] [id number] [place] [address] Apr, [facility] [id number] [place] [id number] Jan, Annual physical exam Z00.00 ; PCOS (polycystic ovarian syndrome) E28.2 ; Substance abuse F19.10 and Pre-diabetes R73.09 [facility] [id number] [place] [address] Nov, Acute non-recurrent pansinusitis J01.40 [facility] [address] [address] Jul, [facility] [address] [address] Jul, [facility] [address] [address] Jul, Medial meniscus tear, right, subsequent encounter S83.241D [facility] [address] [id number] Jun, Dental examination Z01.20 [facility] [address] [id number] Jun, Dental examination Z01.20 [facility] [id number] [place] [address] May, Chondromalacia patellae, 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 [facility] [id number] [place] [address] May, Bilateral thoracic back pain M54.6 ; Substance abuse F19.10 and Tobacco abuse Z72.0 [facility] [id number] [place] [address] Apr, Bilateral low back pain with sciatica, sciatica laterality unspecified M54.40 [facility] [address] [address] 23 Apr, 2016 Bilateral low back pain with sciatica, sciatica laterality unspecified M54.40 [place] [id number] [place] [address] 20 Apr, 2016 Acute right-sided low back pain with right-sided sciatica M54.41 [place] [address] [address] 07 Apr, 2016 PMS (premenstrual syndrome) N94.3 ; Tobacco abuse counseling Z71.6 and Right knee pain, unspecified chronicity M25.561 [place] [address] [address] March, Well woman exam Z01.419 [place] [address] [address] Feb, Methamphetamine addiction F15.20 and Folliculitis L73.9 [place] [address] [address] Feb, [facility] [address] [address] Jan, Well woman exam Z01.419 ; Routine gynecological examination V72.31 and Substance abuse F19.10 [facility] [id number] [place] [address] Jan, Sore throat J02.9 and Acute bronchitis J20.9 [facility] [id number] [place] [id number] Jan, Dental caries K02.9 [facility] [address] [address] Jan, Morbid obesity E66.01 ; Pre-diabetes R73.09 and Onychomycosis B35.1 [facility] [id number] [place] [address] Jan, Immunization due Z23 [facility] [address] [id number] [id number] Jan, 2016 Encounter for dental examination Z01.20 [facility] [address] [place] [address] 12 Dec, 2015 Sinusitis, acute maxillary J01.00 [facility] [address], [place] [address] 27 Nov, 2015 [facility] [id number] [place] [address] Nov, [facility] [address] [place] [address] Nov, [facility] [id number] [place] [address] Nov, [facility] [id number] [place] [address] Nov, Bilateral low back pain with sciatica, sciatica laterality unspecified M54.40 ; History of back surgery Z98.89 ; Radiculopathy, thoracic region M54.14 ; Radiculopathy of lumbosacral region M54.17 and Bilateral thoracic back pain M54.6 [place] [address], [place] [address] Nov, Morbid obesity E66.01 and General medical exam Z00.00 [place] [address], [place] [address] Nov, Morbid obesity E66.01 and General medical exam Z00.00 [facility] [id number], [place] [address] 12 Nov, 2015 General medical exam Z00.00 ; Lumbago M54.5 ; History of back surgery Z98.89 ; Bilateral low back pain with sciatica, sciatica laterality unspecified M54.40 ; Radiculopathy, thoracic region M54.14 ; Radiculopathy of lumbosacral region M54.17 and Bilateral thoracic back pain M54.6 [place] [address], [place] [address] 12 Nov, 2015 General medical exam Z00.00 ; Morbid obesity E66.01 ; Substance abuse F19.10 ; Tobacco abuse Z72.0 ; Tobacco abuse counseling Z71.6 ; Lumbago M54.5 ; History of back surgery Z98.89 and Right upper quadrant pain R10.11 [facility] [address], [place] [address] 14 Feb, 2015 [facility] [address] [facility] [id number], [place] [address] Feb, [facility] [address] [address] Jan, [facility] [address], [place] [address] Jan, [facility] [address], [place] [address] Jan, [facility] [address], [place] [address] Jan, [facility] [address], [place] [address] Oct, [facility] [address], [place] [address] Oct, [facility] [address], [place] [address] Sep, [facility] [address], [place] [address] Sep, [facility] [address], [place] [address] Jul, [facility] [address], [place] [address] Jul, [facility] [address], [place] [address] May, [facility] [address] [facility] [id number], [place] [address] May, [facility] [address] [facility] [id number], [place] [address] May, [facility] [address] [facility] [id number], [place] [address] May, [facility] [address] [id number], [place] [address] Apr, [facility] [address] [id number] [place] [address] Apr, [facility] [address] [facility] [id number], [place] [address] Apr, [facility] [address] [facility] [id number], [place] [address] Apr, [facility] [address] [facility] [id number], [place] [address] Apr, [facility] [address] [facility] [id number], [place] [address] Apr, [facility] [address] [facility] [id number], [place] [address] 18 Apr, 2014 [facility] [address] [facility] [id number], [place] [address] 16 Apr, 2014 [facility] [address] [facility] [id number], [place] [address] 15 Apr, 2014 [facility] [address] [facility] [id number], [place] [address] 13 Apr, 2014 [facility] [address] [facility] [id number], [place] [address] Apr, [facility] [address] [facility] [id number], [place] [address] Apr, IMMUNIZATIONS No Known Immunizations SOCIAL HISTORY Never Assessed REASON FOR VISIT Medication Refill PLAN OF CARE VITAL SIGNS MEDICATIONS Medication Instructions Dosage Frequency Start Date End Date Duration Status Gabapentin 100 MG Orally 3 times a day 1 tablet 8h Apr, 30 days Active Nabumetone 500 MG Orally [...] Surgical History Back Surgery. 2009- [facility]/ 2010 and 2011- [facility] 06/2010, 01/2011, 01/2012 Surgical History Right knee scope 10/24/2016 Hospitalization History Surgery(s)/Childbirth(s) only Hospitalization History CHF/ Pneumonia- Post Delivery of Child Hospitalization History Pain r/t back surgery- hospitalized for pain control x3 Hospitalization History [facility] in [place] 02/2016 Hospitalization History [facility] after 3rd back surgery
--- OUTSIDE RECORDS SUMMARY | 2018-08-19 14:53 | XMS REPORT ---
Author Author ELIA ANTONIO Organization [employer] Address Unknown Phone Unavailable Care Team Providers Care Diesel Mechanic Name Role Phone ELIA ANTONIO CP Unavailable Allergies No Known Allergies Problems Problem Type Condition Code Onset Dates Condition Status Assessment Lumbago M54.5 Active Problem Right upper quadrant pain R10.11 Active Assessment General medical exam Z00.00 Active Problem Morbid obesity E66.01 Active Problem Substance abuse F19.10 Active Problem General medical exam Z00.00 Active Problem Lumbago M54.5 Active Problem History of back surgery Z98.89 Active Problem Tobacco abuse Z72.0 Active Problem Tobacco abuse counseling Z71.6 Active Assessment Radiculopathy of lumbosacral region M54.17 Active Assessment Radiculopathy, thoracic region M54.14 Active Assessment Bilateral low back pain with sciatica, sciatica laterality unspecified M54.40 Active Assessment Bilateral thoracic back pain M54.6 Active Assessment History of back surgery Z98.89 Active Medications No Known Medications Results No Known Results Summary Purpose [employer] Submission
--- OUTSIDE RECORDS SUMMARY | 2018-08-19 14:54 | XMS REPORT ---
Author Author CARTER SENIOR [facility] [employer] Address Unknown Phone Unavailable Care Team Providers Care Devulcanizer Tender Name Role Phone CARTER SENIOR CP Unavailable Allergies, Adverse Reactions, Alerts Substance Reaction Event Type Keflex Info Not Available Drug Allergy Problems Problem Type Condition Code Onset Dates Condition Status Problem History of back surgery Z98.89 Active Problem Tobacco abuse counseling Z71.6 Active Problem Lumbago M54.5 Active Problem Onychomycosis B35.1 Active Problem PCOS (polycystic ovarian syndrome) E28.2 Active Problem Pre-diabetes R73.09 Active Problem Substance abuse F19.10 Active Problem Tobacco abuse Z72.0 Active Problem General medical exam Z00.00 Active Problem Morbid obesity E66.01 Active Assessment Folliculitis L73.9 Active Assessment Methamphetamine addiction F15.20 Active Problem Right upper quadrant pain R10.11 Active Medications Medication Code System Code Instructions Start Date End Date Status Dosage Metformin HCl [facility] [address]-86 500 MG Orally Once a day March 16, 2016 1 tablet with meals HydrOXYzine HCl [facility] [address]-42 25 MG Orally 3 times a day March 16, 2016 1 tablet as needed Procedures Procedure Coding System Code Date Office Visit, Est Pt., Level 3 CPT-4 61600 March 16, 2016 Vital Signs Date/Time: March 16, 2016 Temperature 97.8 F Weight 236.0 lbs Height 64 in BMI 40.50 Index Blood Pressure Diastolic 80 mmHg Blood Pressure Systolic 106 mmHg Cardiac Monitoring Heart Rate 80 bpm Results No Known Results Summary Purpose [employer] Submission
--- OUTSIDE RECORDS SUMMARY | 2018-08-19 14:54 | XMS REPORT ---
Author Author KIMANI POLLACK Organization [facility] Address [address] [place] [address] Care Team Providers Care Automatic Developer Name Role Phone KIMANI POLLACK Unavailable PROBLEMS Type Condition ICD9-CM Code IAF39-PT Code Onset Dates Condition Status SNOMED Code Problem Lumbar radiculopathy M54.16 Active 095677322 Problem Reactive depression F32.9 Active 04313026 Problem BMI 40.0-44.9, adult Z68.41 Active 695818845 Problem Methamphetamine use F15.10 Active 595710408 Problem Tobacco use disorder, moderate, dependence F17.200 Active 26074990 Problem Cannabis use disorder, severe, dependence F12.20 Active 07463612 Problem Opioid use disorder, severe, in sustained remission F11.21 Active 08054063 Problem Methamphetamine use disorder, severe, 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 28477454 Problem Substance induced mood disorder F19.94 Active 168609194 Problem H/O bursectomy Z98.890 Active 789705144 Problem Tobacco abuse Z72.0 Active 62257715 Problem Onychomycosis B35.1 Active 338756554 Problem Pre-diabetes R73.09 Active 8360618 Problem Substance abuse F19.10 Active 62489447 Problem PMS (premenstrual syndrome) N94.3 Active 53713663 Problem PCOS (polycystic ovarian syndrome) E28.2 Active 40894434 Problem Anxiety F41.9 Active 05047122 ALLERGIES Substance Reaction Event Type Date Status Keflex Unknown Drug Allergy Sep, Active ENCOUNTERS Encounter Location Date Diagnosis [facility] [id number] [place] [address] March, Lumbar radiculopathy M54.16 and Pre-diabetes R73.09 [facility] [id number] [address] Jan, Epigastric pain R10.13 and Methamphetamine use F15.10 [facility] [address] [address] 06 Dec, 2018 Methamphetamine use disorder, severe, 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 ; Opioid use disorder, severe, in sustained remission F11.21 ; Tobacco use disorder, moderate, dependence F17.200 ; Cannabis use disorder, severe, dependence F12.20 and Substance induced mood disorder F19.94 [address] [address] [address] Nov, BMI 40.0-44.9, adult Z68.41 ; Lumbar radiculopathy M54.16 and Reactive depression F32.9 [place] [address] [address] 30 Sep, 2017 Strain of lumbar region, initial encounter S39.012A and BMI 40.0-44.9, adult Z68.41 [facility] [address] [address] Sep, Acute left-sided low back pain with left-sided sciatica M54.42 [place] [address] [address] Sep, [facility] [address] [address] Sep, Lumbago M54.5 and Anxiety F41.9 [place] [address] [address] Jul, Tobacco abuse Z72.0 ; Anxiety F41.9 and Bilateral thoracic back pain M54.6 [place] [address] [address] Jul, [facility] [address] [address] Jun, Lumbago M54.5 [place] [address] [address] Apr, Annual physical exam Z00.00 ; Morbid obesity E66.01 ; Lumbago M54.5 ; History of back surgery Z98.89 ; Pre-diabetes R73.09 ; PCOS ( polycystic ovarian syndrome) E28.2 and Bilateral thoracic back pain M54.6 [facility] [id number] [place] [address] 05 Apr, 2017 [facility] [address] [address] Jan, Annual physical exam Z00.00 ; PCOS (polycystic ovarian syndrome) E28.2 ; Substance abuse F19.10 and Pre-diabetes R73.09 [facility] [address] [address] Nov, Acute non-recurrent pansinusitis J01.40 [place] [address] [address] Jul, [facility] [address] [address] Jul, [place] [address] [address] Jul, Medial meniscus tear, right, subsequent encounter S83.241D [facility] [id number] [place] [id number] Jun, Dental examination Z01.20 [facility] [address] [id number] Jun, Dental examination Z01.20 [facility] [address] [address] May, Chondromalacia patellae, 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 [facility] [address] [address] May, Bilateral thoracic back pain M54.6 ; Substance abuse F19.10 and Tobacco abuse Z72.0 [address] [place] [address] 29 Apr, 2016 Bilateral low back pain with sciatica, sciatica laterality unspecified M54.40 [facility] [address] [address] 23 Apr, 2016 Bilateral low back pain with sciatica, sciatica laterality unspecified M54.40 [facility] [address] [address] 20 Apr, 2016 Acute right-sided low back pain with right-sided sciatica M54.41 [place] [address] [address] 07 Apr, 2016 PMS (premenstrual syndrome) N94.3 ; Tobacco abuse counseling Z71.6 and Right knee pain, unspecified chronicity M25.561 [facility] [address] [address] March, Well woman exam Z01.419 [place] [address] [address] Feb, Methamphetamine addiction F15.20 and Folliculitis L73.9 [place] [address] [address] Feb, [facility] [address] [address] Jan, Well woman exam Z01.419 ; Routine gynecological examination V72.31 and Substance abuse F19.10 [facility] [id number] [place] [address] Jan, Sore throat J02.9 and Acute bronchitis J20.9 [facility] [address] [id number] Jan, Dental caries K02.9 [facility] [address] [address] Jan, Morbid obesity E66.01 ; Pre-diabetes R73.09 and Onychomycosis B35.1 [facility] [address] [address] Jan, 2016 Immunization due Z23 [facility] [address] [id number] 15 Jan, 2016 Encounter for dental examination Z01.20 [facility] [id number] [place] [address] 12 Dec, 2015 Sinusitis, acute maxillary J01.00 [facility] [address] [place] [address] 27 Nov, 2015 [facility] [id number] [place] [address]- [address] 22 Nov, 2015 [facility] [id number] [place] [address] 21 Nov, 2015 [facility] [id number] [place] [address] Nov, [facility] [address] [place] [address] Nov, Bilateral low back pain with sciatica, sciatica laterality unspecified M54.40 ; History of back surgery Z98.89 ; Radiculopathy, thoracic region M54.14 ; Radiculopathy of lumbosacral region M54.17 and Bilateral thoracic back pain M54.6 [facility] [address] [address] Nov, Morbid obesity E66.01 and General medical exam Z00.00 [facility] [address] [place] [address] 19 Nov, 2015 Morbid obesity E66.01 and General medical exam Z00.00 [facility] [address] [address] 12 Nov, 2015 General medical exam Z00.00 ; Lumbago M54.5 ; Bilateral low back pain with sciatica, sciatica laterality unspecified M54.40 ; History of back surgery Z98.89 ; Radiculopathy, thoracic region M54.14 ; Radiculopathy of lumbosacral region M54.17 and Bilateral thoracic back pain M54.6 [facility] [address] [address] 12 Nov, 2015 General medical exam Z00.00 ; Morbid obesity E66.01 ; Substance abuse F19.10 ; Tobacco abuse Z72.0 ; Tobacco abuse counseling Z71.6 ; Lumbago M54.5 ; History of back surgery Z98.89 and Right upper quadrant pain R10.11 [facility] [id number] [place] [address] 14 Feb, 2015 [facility] [id number] [place] [address] Feb, [facility] [id number] [place] [address] Jan, [facility] [id number] [place] [address] 0[address] Jan, [facility] [id number] [place] [address]38- [address] Jan, [facility] [address] [address] Jan, [facility] [address] [place] [address]- [address] Oct, [facility] [id number] [address] Oct, [facility] [id number] [place] [address] Sep, [facility] [id number] [address] Sep, [facility] [address] [place] [address] Jul, [facility] [place] [facility] [address] [id number] [place] [address] Jul, [facility] [place] [facility] [address] [id number] [place] [address] May, [facility] [place] [facility] [address] [id number] [place] [address] May, [facility] [place] [facility] [address] [id number] [place] [address] May, [facility] [place] [facility] [address] [id number] [place] [address]- [address] May, [facility] [place] [facility] [address] [id number] [place] [address] Apr, [facility] [place] [facility] [address] [id number] [place] [address]- [address] Apr, [facility] [place] [facility] [address] [id number] [place] [address]- 07[address] Apr, [facility] [place] [facility] [address] [id number] [place] [address]- 6[address] Apr, [facility] [place] [facility] [address] [id number] [place] [address]- [address] Apr, [facility] [place] [facility] [address] [id number] [place] [address]- 35[address] Apr, [facility] [place] [facility] [address] [id number] [place] [address] 89[address] 18 Apr, 2014 [facility] [place] [facility] [address] [id number] [place] [address]- [address]85 16 Apr, 2014 [facility] [place] [facility] [address] [id number] [place] [address]- [address] 15 Apr, 2014 [facility] [place] [facility] [address] [id number] [place] [address]- [address] 13 Apr, 2014 [facility] [place] [facility] [address] [id number] [place] [address]- [address] Apr, [facility] [address] [facility] [id number] [place] [address] Apr, IMMUNIZATIONS No Known Immunizations SOCIAL HISTORY Never Assessed REASON FOR VISIT hurt lower back for two days--Wanda Davila MA PLAN OF CARE Activity Details Follow Up prn Reason: VITAL SIGNS Height 64 in 2017-10-25 Weight 249.5 lbs 2017-10-25 Temperature 98.3 degrees Fahrenheit 2017-10-25 Heart Rate 88 bpm 2017-10-25 Respiratory Rate 22 2017-10-25 BMI 42.82 kg/m2 2017-10-25 Blood pressure systolic 118 mmHg 2017-10-25 Blood pressure diastolic 82 mmHg 2017-10-25 MEDICATIONS Medication Instructions Dosage Frequency Start Date End Date Duration Status Nabumetone 500 MG Orally Twice a day 1 tablet 12h 30 Not-Taking Metformin HCl 500 MG Orally Twice a day 1 tablet with meals 12h 07 Apr, 2017 30 day(s) Active Zoloft 100 MG Orally Once a day 1 tablet 24h Jul, 30 day(s) Active Ibuprofen 200 MG Orally every 6 hrs 1 tablet with food or milk as needed 6h Active PredniSONE 20 MG Orally Once a day 1 tablet 24h Sep, Oct, 30 day(s) Active Cyclobenzaprine HCl 10 mg Orally 2 times a day 1 tablet as needed 12h Sep, Active Gabapentin 300 MG Orally 3 times a day 1 tablet 8h 30 Active RESULTS No Results PROCEDURES No Known [...] History section 2006 Surgical History Back Surgery. 2009- [facility]/ 2010 and 2011- [facility] 06/2010, 01/2011, 01/2012 Surgical History Right knee scope 10/24/2016 Hospitalization History Surgery(s)/Childbirth(s) only Hospitalization History CHF/ Pneumonia- Post Delivery of Child Hospitalization History Pain r/t back surgery- hospitalized for pain control x3 Hospitalization History [facility] in [place] 02/2016 Hospitalization History [facility] after 3rd back surgery
--- OUTSIDE RECORDS SUMMARY | 2018-08-19 14:54 | XMS REPORT ---
Author Author KIMANI POLLACK Organization [facility] [place] [facility] Address [address] [place] [address] Care Team Providers Care Mine Inspector Federal Name Role Phone KIMANI POLLACK Unavailable PROBLEMS Type Condition ICD9-CM Code RZH12-UX Code Onset Dates Condition Status SNOMED Code Problem Lumbar radiculopathy M54.16 Active 196771830 Problem Reactive depression F32.9 Active 11855471 Problem BMI 40.0-44.9, adult Z68.41 Active 481348405 Problem Methamphetamine use F15.10 Active 886665421 Problem Tobacco use disorder, moderate, dependence F17.200 Active 13162518 Problem Cannabis use disorder, severe, dependence F12.20 Active 44657718 Problem Opioid use disorder, severe, in sustained remission F11.21 Active 66948870 Problem Methamphetamine use disorder, severe, 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 96852336 Problem Substance induced mood disorder F19.94 Active 406382393 Problem H/O bursectomy Z98.890 Active 151209121 Problem Tobacco abuse Z72.0 Active 67458909 Problem Onychomycosis B35.1 Active 415162903 Problem Pre-diabetes R73.09 Active 7324359 Problem Substance abuse F19.10 Active 80478684 Problem PMS (premenstrual syndrome) N94.3 Active 76073429 Problem PCOS (polycystic ovarian syndrome) E28.2 Active 50180029 Problem Anxiety F41.9 Active 29202174 ALLERGIES Substance Reaction Event Type Date Status Keflex Unknown Drug Allergy Nov, Active ENCOUNTERS Encounter Location Date Diagnosis [facility] [place] [facility] [id number] [place] [address] March, Lumbar radiculopathy M54.16 and Pre-diabetes R73.09 [facility] [address] [id number] [address] Jan, Epigastric pain R10.13 and Methamphetamine use F15.10 [facility] [place] [facility] [address] [address] 06 Dec, 2018 Methamphetamine use disorder, severe, 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 ; Opioid use disorder, severe, in sustained remission F11.21 ; Tobacco use disorder, moderate, dependence F17.200 ; Cannabis use disorder, severe, dependence F12.20 and Substance induced mood disorder F19.94 [place] [address] [address] Nov, BMI 40.0-44.9, adult Z68.41 ; Lumbar radiculopathy M54.16 and Reactive depression F32.9 [place] [address] [address] 30 Sep, 2017 Strain of lumbar region, initial encounter S39.012A and BMI 40.0-44.9, adult Z68.41 [facility] [address] [address] Sep, Acute left-sided low back pain with left-sided sciatica M54.42 [place] [address] [address] Sep, [facility] [place] [facility] [address] [address] Sep, Lumbago M54.5 and Anxiety F41.9 [place] [address] [address] Jul, Tobacco abuse Z72.0 ; Anxiety F41.9 and Bilateral thoracic back pain M54.6 [place] [address] [address] Jul, [facility] [place] [facility] [address] [address] Jun, Lumbago M54.5 [place] [address] [address] Apr, Annual physical exam Z00.00 ; Morbid obesity E66.01 ; Lumbago M54.5 ; History of back surgery Z98.89 ; Pre-diabetes R73.09 ; PCOS ( polycystic ovarian syndrome) E28.2 and Bilateral thoracic back pain M54.6 [facility] [place] [facility] [id number] [place] [address] 05 Apr, 2017 [facility] [place] [facility] [address] [address] Jan, Annual physical exam Z00.00 ; PCOS (polycystic ovarian syndrome) E28.2 ; Substance abuse F19.10 and Pre-diabetes R73.09 [facility] [address] [address] Nov, Acute non-recurrent pansinusitis J01.40 [place] [address] [address] Jul, [facility] [place] [facility] [address] [address] Jul, [place] [address] [address] Jul, Medial meniscus tear, right, subsequent encounter S83.241D [facility] [id number] [place] [id number] Jun, Dental examination Z01.20 [facility] [address] [id number] Jun, Dental examination Z01.20 [facility] [place] [facility] [address] [address] May, Chondromalacia patellae, 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 [facility] [place] [facility] [address] [address] May, Bilateral thoracic back pain M54.6 ; Substance abuse F19.10 and Tobacco abuse Z72.0 [address] [place] [address] 29 Apr, 2016 Bilateral low back pain with sciatica, sciatica laterality unspecified M54.40 [facility] [place] [facility] [address] [address] 23 Apr, 2016 Bilateral low back pain with sciatica, sciatica laterality unspecified M54.40 [facility] [place] [facility] [address] [address] 20 Apr, 2016 Acute right-sided low back pain with right-sided sciatica M54.41 [place] [address] [address] 07 Apr, 2016 PMS (premenstrual syndrome) N94.3 ; Tobacco abuse counseling Z71.6 and Right knee pain, unspecified chronicity M25.561 [facility] [place] [facility] [address] [address] March, Well woman exam Z01.419 [place] [address] [address] Feb, Methamphetamine addiction F15.20 and Folliculitis L73.9 [place] [address] [address] Feb, [facility] [place] [facility] [address] [address] Jan, Well woman exam Z01.419 ; Routine gynecological examination V72.31 and Substance abuse F19.10 [facility] [id number] [place] [address] Jan, Sore throat J02.9 and Acute bronchitis J20.9 [facility] [address] [id number] Jan, Dental caries K02.9 [facility] [place] [facility] [address] [address] Jan, Morbid obesity E66.01 ; Pre-diabetes R73.09 and Onychomycosis B35.1 [facility] [address] [address] Jan, 2016 Immunization due Z23 [facility] [address] [id number] 15 Jan, 2016 Encounter for dental examination Z01.20 [facility] [place] [facility] [id number] [place] [address] 12 Dec, 2015 Sinusitis, acute maxillary J01.00 [facility] [place] [facility] [address] [place] [address] 27 Nov, 2015 [facility] [place] [facility] [id number] [place] [address]- [address] 22 Nov, 2015 [facility] [place] [facility] [id number] [place] [address] Nov, [facility] [place] [facility] [id number] [place] [address] Nov, [facility] [place] [facility] [address] [place] [address] Nov, Bilateral low back pain with sciatica, sciatica laterality unspecified M54.40 ; History of back surgery Z98.89 ; Radiculopathy, thoracic region M54.14 ; Radiculopathy of lumbosacral region M54.17 and Bilateral thoracic back pain M54.6 [facility] [place] [facility] [address] [address] Nov, Morbid obesity E66.01 and General medical exam Z00.00 [facility] [place] [facility] [address] [place] [address] 19 Nov, 2015 Morbid obesity E66.01 and General medical exam Z00.00 [facility] [place] [facility] [address] [address] 12 Nov, 2015 General medical exam Z00.00 ; Lumbago M54.5 ; History of back surgery Z98.89 ; Bilateral low back pain with sciatica, sciatica laterality unspecified M54.40 ; Radiculopathy, thoracic region M54.14 ; Radiculopathy of lumbosacral region M54.17 and Bilateral thoracic back pain M54.6 [facility] [place] [facility] [address] [address] 12 Nov, 2015 General medical exam Z00.00 ; Morbid obesity E66.01 ; Substance abuse F19.10 ; Tobacco abuse Z72.0 ; Tobacco abuse counseling Z71.6 ; Lumbago M54.5 ; History of back surgery Z98.89 and Right upper quadrant pain R10.11 [facility] [place] [facility] [id number] [place] [address] 14 Feb, 2015 [facility] [place] [facility] [id number] [place] [address] Feb, [facility] [place] [facility] [id number] [place] [address]- [address] Jan, [facility] [place] [facility] [id number] [place] [address]- [address] Jan, [facility] [place] [facility] [id number] [place] [address]- [address] Jan, [facility] [place] [facility] [address], [place] [address] Jan, [facility] [place] [facility] [address] [address] Oct, [facility] [place] [facility] [address], [place] [address] Oct, [facility] [place] [facility] [id number] [place] [address] Sep, [facility] [place] [facility] [id number] [address] Sep, [facility] [place] [facility] [address] [place] [address] 4[address] Jul, [facility] [place] [facility] [address] [id number] [place] [address] Jul, [facility] [place] [facility] [address] [id number] [place] [address] May, [facility] [place] [facility] [address] [id number] [place] [address] May, [facility] [place] [facility] [address] [id number] [place] [address] May, [facility] [place] [facility] [address] [id number] [place] [address] May, [facility] [place] [facility] [address] [id number] [place] [address] Apr, [facility] [place] [facility] [address] [id number] [place] [address] Apr, [facility] [place] [facility] [address] [id number] [place] [address] Apr, [facility] [place] [facility] [address] [id number] [place] [address]- [address] Apr, [facility] [place] [facility] [address] [id number] [place] [address] Apr, [facility] [place] [facility] [address] [id number] [place] [address]- [address]66 Apr, [facility] [place] [facility] [address] [id number] [place] [address]- [address] 18 Apr, 2014 [facility] [place] [facility] [address] [id number] [place] [address]- [address] 16 Apr, 2014 [facility] [place] [facility] [address] [id number] [place] [address]- [address] 15 Apr, 2014 [facility] [place] [facility] [address] [id number] [place] [address] 13 Apr, 2014 [facility] [place] [facility] [address] [id number] [place] [address] Apr, [facility] [place] [facility] [address] [facility] [id number] [place] [address] Apr, IMMUNIZATIONS No Known Immunizations SOCIAL HISTORY Never Assessed REASON FOR VISIT left hip/ leg pain/back x months.But hip pain is getting worse. Reji, PHQ2, DAST PLAN OF CARE Activity Details Follow Up 6 Months Reason: VITAL SIGNS Height 64 in 2017-12-24 Weight 235.0 lbs 2017-12-24 Temperature 98.3 degrees Fahrenheit 2017-12-24 Heart Rate 76 bpm 2017-12-24 Respiratory Rate 20 2017-12-24 BMI 40.33 kg/m2 2017-12-24 Blood pressure systolic 130 mmHg 2017-12-24 Blood pressure diastolic 72 mmHg 2017-12-24 MEDICATIONS Medication Instructions Dosage Frequency Start Date End Date Duration Status Metformin HCl 500 MG Orally Twice a day 1 tablet with meals 12h 07 Apr, 2017 30 day(s) Active Cyclobenzaprine HCl 10 mg Orally 2 times a day 1 tablet as needed 12h 29 Sep, 2017 Active Gabapentin 600 MG Orally 3 times a day 1 tablet 8h 30 Active Nabumetone 500 MG Orally Twice a day 1 tablet 12h 30 Active Ibuprofen 200 MG Orally every 6 hrs 1 tablet with food or milk as needed 6h Active Zoloft 100 MG Orally Once a day 1 tablet 24h 26 Jul, 2017 30 day(s) Not-Taking RESULTS No Results PROCEDURES No Known procedures [...] 2010- [facility]/ 2010 and 2011- [facility] 06/2010, 01/2011, 01/2012 Surgical History Right knee scope 10/24/2016 Hospitalization History Surgery(s)/Childbirth(s) only Hospitalization History CHF/ Pneumonia- Post Delivery of Child Hospitalization History Pain r/t back surgery- hospitalized for pain control x3 Hospitalization History [facility] in [place] 02/2016 Hospitalization History [facility] after 3rd back surgery
--- OUTSIDE RECORDS SUMMARY | 2018-08-19 14:54 | XMS REPORT ---
Author Author MITCHELL MONSON [facility] Address Unknown Care Team Providers Care Dairy Worker Name Role Phone IONA MITCHELL Unavailable PROBLEMS Type Condition ICD9-CM Code [id number] Code Onset Dates Condition Status SNOMED Code Problem Tobacco abuse Z72.0 Active 51879655 Problem Morbid obesity E66.01 Active 496071336 Problem Substance abuse F19.10 Active 61029632 Problem Bilateral thoracic back pain M54.6 Active 778930622 Problem PMS (premenstrual syndrome) N94.3 Active 15675520 Problem PCOS (polycystic ovarian syndrome) E28.2 Active 58449946 Problem General medical exam Z00.00 Active 863008486 Problem Pre-diabetes R73.09 Active 2155272 Problem Onychomycosis B35.1 Active 488948467 Problem Right upper quadrant pain R10.11 Active 373048827 Problem History of back surgery Z98.89 Active 628891026 Problem Lumbago M54.5 Active 489966977 Assessment Dental examination Z01.20 19 Jun, 2016 Active 559108412 Problem Tobacco abuse counseling Z71.6 Active 428015221 ALLERGIES Substance Reaction Event Type Date Status Keflex Unknown Drug Allergy Jun, Active SOCIAL HISTORY No smoking Hx information available PLAN OF CARE VITAL SIGNS Height 64 in 2016-07-14 Blood pressure systolic 103 mmHg 2016-07-14 Blood pressure diastolic 54 mmHg 2016-07-14 MEDICATIONS Unknown Medications RESULTS No Results PROCEDURES Procedure Date Ordered Related Diagnosis Body Site LTD ORAL EVALUATION - PROBLEM FOCUS Jul 14, 2016 INTRAORL-PERIAPICAL 1 FILM 79013 Jul 14, 2016 BITEWING - SINGLE FILM Jul 14, 2016 IMMUNIZATIONS No Known Immunizations
--- OUTSIDE RECORDS SUMMARY | 2018-08-19 14:54 | XMS REPORT ---
Author Author JULIETA MEDINA [facility] Address [address] [place] [address] Care Team Providers Care Family Resource Coordinator Name Role Phone JULIETA MEDINA Unavailable PROBLEMS Type Condition ICD9-CM Code HEV70-TF Code Onset Dates Condition Status SNOMED Code Problem Tobacco abuse Z72.0 Active 02523921 Problem Morbid obesity E66.01 Active 190431958 Problem Substance abuse F19.10 Active 11580541 Problem Right upper quadrant pain R10.11 Active 418190715 Problem History of back surgery Z98.89 Active 078506441 Problem Lumbago M54.5 Active 306735565 Problem Tobacco abuse counseling Z71.6 Active 573403204 Problem Bilateral thoracic back pain M54.6 Active 720854173 Problem PMS (premenstrual syndrome) N94.3 Active 70843775 Problem PCOS (polycystic ovarian syndrome) E28.2 Active 57101222 Problem General medical exam Z00.00 Active 031119215 Problem Pre-diabetes R73.09 Active 9099657 Problem Onychomycosis B35.1 Active 735718290 ALLERGIES Unknown Allergies SOCIAL HISTORY No smoking Hx information available PLAN OF CARE VITAL SIGNS MEDICATIONS Unknown Medications RESULTS No Results PROCEDURES No Known procedures IMMUNIZATIONS No Known Immunizations
--- OUTSIDE RECORDS SUMMARY | 2018-08-19 14:54 | XMS REPORT ---
Author Author ELIA ANTONIO Organization [employer] Address Unknown Phone Unavailable Care Team Providers Care Mold Release Worker Name Role Phone ELIA ANTONIO CP Unavailable Allergies No Known Allergies Problems Problem Type Condition Code Onset Dates Condition Status Assessment General medical exam Z00.00 Active Problem Right upper quadrant pain R10.11 Active Assessment Morbid obesity E66.01 Active Problem Morbid obesity E66.01 Active Problem Substance abuse F19.10 Active Problem General medical exam Z00.00 Active Problem Lumbago M54.5 Active Problem History of back surgery Z98.89 Active Problem Tobacco abuse Z72.0 Active Problem Tobacco abuse counseling Z71.6 Active Medications No Known Medications Results No Known Results Summary Purpose [employer] Submission
--- OUTSIDE RECORDS SUMMARY | 2018-08-19 14:55 | XMS REPORT ---
Author Author ELIA ANTONIO Organization [employer] Address Unknown Phone Unavailable Care Team Providers Care Urban Designer Name Role Phone ELIA ANTONIO CP Unavailable Allergies, Adverse Reactions, Alerts Substance Reaction Event Type Keflex Info Not Available Drug Allergy Problems Problem Type Condition Code Onset Dates Condition Status Assessment Morbid obesity E66.01 Active Problem Right upper quadrant pain R10.11 Active Assessment General medical exam Z00.00 Active Problem Morbid obesity E66.01 Active Problem Substance abuse F19.10 Active Problem General medical exam Z00.00 Active Problem Lumbago M54.5 Active Problem History of back surgery Z98.89 Active Problem Tobacco abuse Z72.0 Active Problem Tobacco abuse counseling Z71.6 Active Assessment Lumbago M54.5 Active Assessment Tobacco abuse counseling Z71.6 Active Assessment Right upper quadrant pain R10.11 Active Assessment Tobacco abuse Z72.0 Active Assessment History of back surgery Z98.89 Active Assessment Substance abuse F19.10 Active Medications Medication Code System Code Instructions Start Date End Date Status Dosage Prednisone NDC 0 Oral 1 tab Orphenadrine Citrate ER [facility] [place]NOTE 2] [address]-89 100 MG Orally Once a day 1 tablet at bedtime Celecoxib [facility] [place]NOTE 2] [address]-98 200 MG Orally Once a day Dec 07, 2015 Jan 06, 2016 1 capsule BuPROPion HCl (XL) [facility] [place]NOTE 2] [address]-22 150 MG Orally Once a day Dec 07, 2015 1 tablet in the morning daily for 3 days, then 150 mg twice a day Procedures Procedure Coding System Code Date COMPLETE CBC W/AUTO DIFF WBC CPT-4 61314 Dec 07, 2015 COMPREHEN METABOLIC PANEL CPT-4 88409 Dec 07, 2015 ACUTE HEPATITIS PANEL CPT-4 27760 Dec 07, 2015 VENIPUNCT, ROUTINE* CPT-4 82484 Dec 07, 2015 HIV-1/HIV-2, SINGLE ASSAY CPT-4 53109 Dec 07, 2015 Office Visit, Est Pt., Level 4 CPT-4 49941 Dec 07, 2015 LIPID PANEL CPT-4 24855 Dec 07, 2015 GLYCATED HEMOGLOBIN TEST CPT-4 95557 Dec 07, 2015 ASSAY OF INSULIN CPT-4 91592 Dec 07, 2015 ASSAY THYROID STIM HORMONE CPT-4 58171 Dec 07, 2015 Vital Signs Date/Time: Dec 07, 2015 Temperature 98.4 F Weight 255.6 lbs Height 64 in BMI 43.87 Index Blood Pressure Diastolic 86 mmHg Blood Pressure Systolic 132 mmHg Cardiac Monitoring Heart Rate 70 bpm Results Name Result Date Reference Range Unit Abnormality Flag ROUTINE VENIPUNCTURE Summary Purpose [employer] Submission
--- OUTSIDE RECORDS SUMMARY | 2018-08-19 14:55 | XMS REPORT ---
Author Author CARISA Shin Organization [facility] Address [address] [place] [address] Care Team Providers Care Rn Birthing Name Role Phone CARISA Shin Unavailable PROBLEMS Type Condition ICD9-CM Code [id number] Code Onset Dates Condition Status SNOMED Code Problem Lumbar radiculopathy M54.16 Active 607431981 Problem Reactive depression F32.9 Active 08877670 Problem BMI 40.0-44.9, adult Z68.41 Active 989059857 Problem Methamphetamine use F15.10 Active 002491301 Problem Tobacco use disorder, moderate, dependence F17.200 Active 49144140 Problem Cannabis use disorder, severe, dependence F12.20 Active 50308620 Problem Opioid use disorder, severe, in sustained remission F11.21 Active 23337250 Problem Methamphetamine use disorder, severe, 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 06985181 Problem Substance induced mood disorder F19.94 Active 796828801 Problem H/O bursectomy Z98.890 Active 918655037 Problem Tobacco abuse Z72.0 Active 35472221 Problem Onychomycosis B35.1 Active 629969311 Problem Pre-diabetes R73.09 Active 4455720 Problem Substance abuse F19.10 Active 21778945 Problem PMS (premenstrual syndrome) N94.3 Active 55290366 Problem PCOS (polycystic ovarian syndrome) E28.2 Active 85365023 Problem Anxiety F41.9 Active 07231335 ALLERGIES No Information ENCOUNTERS Encounter Location Date Diagnosis [facility] [address] [facility] [id number] [address] Jan, Epigastric pain R10.13 and Methamphetamine use F15.10 [facility] [address] [id number] [address] Dec, Methamphetamine use disorder, severe, 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 ; Opioid use disorder, severe, in sustained remission F11.21 ; Tobacco use disorder, moderate, dependence F17.200 ; Cannabis use disorder, severe, dependence F12.20 and Substance induced mood disorder F19.94 [place] [id number] [place] [address] 9[address]16- 8151 Nov, BMI 40.0-44.9, adult Z68.41 ; Lumbar radiculopathy M54.16 and Reactive depression F32.9 [place] [address] [address] Sep, Strain of lumbar region, initial encounter S39.012A and BMI 40.0-44.9, adult Z68.41 [facility] [address] [address] Sep, Acute left-sided low back pain with left-sided sciatica M54.42 [place] [address] 34678- 43[address] Sep, [place] [address] [address]- 47[address] Sep, Lumbago M54.5 and Anxiety F41.[address] [address]- [address] Jul, Tobacco abuse Z72.0 ; Anxiety F41.9 and Bilateral thoracic back pain M54.6 [place] [address] 79378- 6[address] Jul, [place] [address] 80677- 5984 Jun, Lumbago M54.[address] [address]187- 2364 Apr, Annual physical exam Z00.00 ; Morbid obesity E66.01 ; Lumbago M54.5 ; History of back surgery Z98.89 ; Pre-diabetes R73.09 ; PCOS ( polycystic ovarian syndrome) E28.2 and Bilateral thoracic back pain M54.6 [facility] [id number] [place] [address] 74030- 4524 Apr, [facility] [id number] [place] [address] Jan, Annual physical exam Z00.00 ; PCOS (polycystic ovarian syndrome) E28.2 ; Substance abuse F19.10 and Pre-diabetes R73.09 [facility] [id number] [place] [address]66 -[address]78 Nov, Acute non-recurrent pansinusitis J01.40 [facility] [address] [address]13- 4[address] Jul, [facility] [address] 43[address]- 0[address] Jul, [facility] [address] 04676- 8318 Jul, Medial meniscus tear, right, subsequent encounter S83.241D [facility] [address] [id number] Jun, Dental examination Z01.20 [facility] [address] [id number] Jun, Dental examination Z01.20 [facility] [id number] [place] [address] 81003- 3377 May, Chondromalacia patellae, 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 [facility] [id number] [place] [address] 61337- 8394 May, Bilateral thoracic back pain M54.6 ; Substance abuse F19.10 and Tobacco abuse Z72.0 [facility] [id number] [place] [address] 30821- 3151 Apr, Bilateral low back pain with sciatica, sciatica laterality unspecified M54.40 [facility] [address] 79295- 3442 23 Apr, 2016 Bilateral low back pain with sciatica, sciatica laterality unspecified M54.40 [place] [id number] [place] [address] 00831- 0222 20 Apr, 2016 Acute right-sided low back pain with right-sided sciatica M54.41 [place] [address] 65587- 7902 07 Apr, 2016 PMS (premenstrual syndrome) N94.3 ; Tobacco abuse counseling Z71.6 and Right knee pain, unspecified chronicity M25.561 [place] [address] 11466- 0490 March, Well woman exam Z01.419 [place] [address] 91798- 5756 Feb, Methamphetamine addiction F15.20 and Folliculitis L73.9 [place] [address] 66966- 4040 Feb, [facility] [address] 99568- 8783 Jan, Well woman exam Z01.419 ; Routine gynecological examination V72.31 and Substance abuse F19.10 [facility] [id number] [place] [address] 8[address]77 -[address]96 Jan, Sore throat J02.9 and Acute bronchitis J20.9 [facility] [id number] [place] [address] [id number] Jan, Dental caries K02.9 [facility] [address] 86254- 4465 Jan, Morbid obesity E66.01 ; Pre-diabetes R73.09 and Onychomycosis B35.1 [facility] [id number] [place] [address] 8[address]15 -[address]83 Jan, Immunization due Z23 [facility] [address] [place] [address] 15 Jan, 2016 Encounter for dental examination Z01.20 [facility] [address] [place] [address] 54528- 7306 12 Dec, 2015 Sinusitis, acute maxillary J01.00 [facility] [address]00565100[place], [place] [address] 27 Nov, 2015 [facility] [id number] [place] [address] 95009- 0313 Nov, [facility] [address] [place] [address] 48630- 1106 Nov, [facility] [id number] [place] [address] 07631- 8932 Nov, [facility] [id number] [place] [address] 03380- 1127 Nov, Bilateral low back pain with sciatica, sciatica laterality unspecified M54.40 ; History of back surgery Z98.89 ; Radiculopathy, thoracic region M54.14 ; Radiculopathy of lumbosacral region M54.17 and Bilateral thoracic back pain M54.6 [place] [address], [place] [address] Nov, Morbid obesity E66.01 and General medical exam Z00.00 [place] [address], [place] [address] Nov, Morbid obesity E66.01 and General medical exam Z00.00 [facility] [address], [place] [address] 12 Nov, 2015 General medical exam Z00.00 ; Lumbago M54.5 ; Bilateral low back pain with sciatica, sciatica laterality unspecified M54.40 ; History of back surgery Z98.89 ; Radiculopathy, thoracic region M54.14 ; Radiculopathy of lumbosacral region M54.17 and Bilateral thoracic back pain M54.6 [place] [address], [place] [address] 12 Nov, 2015 General medical exam Z00.00 ; Morbid obesity E66.01 ; Substance abuse F19.10 ; Tobacco abuse Z72.0 ; Tobacco abuse counseling Z71.6 ; Lumbago M54.5 ; History of back surgery Z98.89 and Right upper quadrant pain R10.11 [facility] [address], [place] [address] 14 Feb, 2015 [facility] [address] [facility] [id number], [place] [address] Feb, [facility] [address] [address] Jan, [facility] [address], [place] [address] 8555 Jan, [facility] [address], [place] [address] 5915 Jan, [facility] [address], [place] [address]- 2970 Jan, [facility] [address], [place] [address] 3438 Oct, [facility] [address], [place] [address]- 9629 Oct, [facility] [address], [place] [address] 2393 Sep, [facility] [address], [place] [address]- 0715 Sep, [facility] [address], [place] [address] 6706 Jul, [facility] [address], [place] [address] 0306 Jul, [facility] [address], [place] [address]- 9931 May, [facility] [address] [facility] [id number] [place] [address]- 7643 May, [facility] [address] [facility] [id number] [place] [address]- 5386 May, [facility] [address] [facility] [id number] [place] [address]- 4908 May, [facility] [address] [facility] [id number] [place] [address]- 9239 Apr, [facility] [address] [facility] [id number] [place] [address]- 4487 Apr, [facility] [address] [facility] [id number] [place] [address]- 4066 Apr, [facility] [address] [facility] [id number] [place] [address]- 3894 Apr, [facility] [address] [facility] [id number] [address]- 9558 Apr, [facility] [address] [facility] [id number], [place] [address]- 1195 Apr, [facility] [address] [facility] [id number], [place] [address]- 4578 18 Apr, 2014 [facility] [address] [facility] [id number], [place] [address]- [address] 16 Apr, 2014 [facility] [address] [facility] [id number], [place] [address]- 6249 15 Apr, 2014 [facility] [address] [facility] [id number], [place] [address]- 3550 13 Apr, 2014 [facility] [address] [facility] [id number], [place] [address]- 4056 12 Apr, 2014 [facility] [address] [facility] [id number], [place] [address]- 4866 Apr, IMMUNIZATIONS No Known Immunizations SOCIAL HISTORY Never Assessed REASON FOR VISIT Requests return call PLAN OF CARE VITAL SIGNS MEDICATIONS No Known Medications RESULTS No Results PROCEDURES No Known [...] 2005 Surgical History Back Surgery. 2009- [facility]/ 2010 and 2011- [facility] 06/2010, 01/2011, 01/2012 Surgical History Right knee scope 10/24/2016 Hospitalization History Surgery(s)/Childbirth(s) only Hospitalization History CHF/ Pneumonia- Post Delivery of Child Hospitalization History Pain r/t back surgery- hospitalized for pain control x3 Hospitalization History [facility] in [place] 02/2016 Hospitalization History [facility] after 3rd back surgery
--- OUTSIDE RECORDS SUMMARY | 2018-08-19 14:55 | XMS REPORT ---
Author Author ELIA ANTONIO Organization [employer] Address Unknown Phone Unavailable Care Team Providers Care Hot Wire Glass Tube Cutter Name Role Phone ELIA ANTONIO CP Unavailable [...] counseling Z71.6 Active Medications No Known Medications Procedures Procedure Coding System Code Date VENIPUNCT, ROUTINE* CPT-4 50619 Dec 14, 2015 COMPLETE CBC W/AUTO DIFF WBC CPT-4 00968 Dec 14, 2015 Results Name Result Date Reference Range Unit Abnormality Flag ROUTINE VENIPUNCTURE Summary Purpose [employer] Submission
--- OUTSIDE RECORDS SUMMARY | 2018-08-19 14:55 | XMS REPORT ---
Author Author KIMANI POLLACK Organization [facility] Address [address] [place] [address] Care Team Providers Care Crown Assembly Machine Set Up Mechanic Name Role Phone KIMANI POLLACK Unavailable PROBLEMS Type Condition ICD9-CM Code BVJ13-CY Code Onset Dates Condition Status SNOMED Code Problem Lumbar radiculopathy M54.16 Active 165515638 Problem Reactive depression F32.9 Active 00804404 Problem BMI 40.0-44.9, adult Z68.41 Active 764740724 Problem Methamphetamine use F15.10 Active 764239741 Problem Tobacco use disorder, moderate, dependence F17.200 Active 12685001 Problem Cannabis use disorder, severe, dependence F12.20 Active 66536640 Problem Opioid use disorder, severe, in sustained remission F11.21 Active 48929885 Problem Methamphetamine use disorder, severe, 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 90537471 Problem Substance induced mood disorder F19.94 Active 175975729 Problem H/O bursectomy Z98.890 Active 552967327 Problem Tobacco abuse Z72.0 Active 78552414 Problem Onychomycosis B35.1 Active 665397275 Problem Pre-diabetes R73.09 Active 4638241 Problem Substance abuse F19.10 Active 20549841 Problem PMS (premenstrual syndrome) N94.3 Active 85027369 Problem PCOS (polycystic ovarian syndrome) E28.2 Active 47767894 Problem Anxiety F41.9 Active 60158969 ALLERGIES No Information ENCOUNTERS Encounter Location Date Diagnosis [facility] [address] [place] [address]89- 0535 March, Lumbar radiculopathy M54.16 and Pre-diabetes R73.09 [facility] [address] [id number], [place] [address] Jan, Epigastric pain R10.13 and Methamphetamine use F15.10 [facility] [id number] [place] [address] 23141- 5989 06 Dec, 2017 Methamphetamine use disorder, severe, 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 ; Opioid use disorder, severe, in sustained remission F11.21 ; Tobacco use disorder, moderate, dependence F17.200 ; Cannabis use disorder, severe, dependence F12.20 and Substance induced mood disorder F19.94 [place] [address] [address]- 7093 Nov, BMI 40.0-44.9, adult Z68.41 ; Lumbar radiculopathy M54.16 and Reactive depression F32.9 [place] [address] 28531- 6039 Sep, Strain of lumbar region, initial encounter S39.012A and BMI 40.0-44.9, adult Z68.41 [facility] [address] [address] -[address]666 Sep, Acute left-sided low back pain with left-sided sciatica M54.42 [place] [address] 71573- 7118 Sep, [place] [address] 33409- 5217 Sep, Lumbago M54.5 and Anxiety F41.9 [place] [address] 82240- 7352 Jul, Tobacco abuse Z72.0 ; Anxiety F41.9 and Bilateral thoracic back pain M54.6 [facility] [address] 94282- 7966 Jul, [facility] [address] 90438- 8988 Jun, Lumbago M54.5 [facility] [address] 44015- 1641 07 Apr, 2017 Annual physical exam Z00.00 ; Morbid obesity E66.01 ; Lumbago M54.5 ; History of back surgery Z98.89 ; Pre-diabetes R73.09 ; PCOS ( polycystic ovarian syndrome) E28.2 and Bilateral thoracic back pain M54.6 [facility] [id number] [place] [address] 96576- 8915 05 Apr, 2017 [facility] [address] 31776- 1269 Jan, Annual physical exam Z00.00 ; PCOS (polycystic ovarian syndrome) E28.2 ; Substance abuse F19.10 and Pre-diabetes R73.09 [facility] [address] [address] -[address] Nov, Acute non-recurrent pansinusitis J01.40 [facility] [id number] [place] [address] 46847- 6172 Jul, [facility] [address] 02510- 6144 Jul, [facility] [id number] [place] [address] 34278- 3645 Jul, Medial meniscus tear, right, subsequent encounter S83.241D [facility] [id number] [place] [address] [id number] Jun, Dental examination Z01.20 [facility] [address] [id number] Jun, Dental examination Z01.20 [facility] [id number] [place] [address] 88637- 5402 May, Chondromalacia patellae, 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 [facility] [address] 34303- 3801 May, Bilateral thoracic back pain M54.6 ; Substance abuse F19.10 and Tobacco abuse Z72.0 [facility] [address] 46708- 4536 Apr, Bilateral low back pain with sciatica, sciatica laterality unspecified M54.40 [place] [address] 94335- 5203 23 Apr, 2016 Bilateral low back pain with sciatica, sciatica laterality unspecified M54.40 [place] [address] 34624- 5785 20 Apr, 2016 Acute right-sided low back pain with right-sided sciatica M54.41 [place] [address] 42181- 8960 07 Apr, 2016 PMS (premenstrual syndrome) N94.3 ; Tobacco abuse counseling Z71.6 and Right knee pain, unspecified chronicity M25.561 [place] [address] 99077- 0060 March, Well woman exam Z01.419 [place] [address] 48887- 7573 Feb, Methamphetamine addiction F15.20 and Folliculitis L73.9 [place] [address] 05837- 5365 Feb, [place] [address] 35230- 8756 Jan, Well woman exam Z01.419 ; Routine gynecological examination V72.31 and Substance abuse F19.10 [facility] [id number] [place] [address] 76600 -4231 Jan, Sore throat J02.9 and Acute bronchitis J20.9 [facility] [address] [id number] Jan, Dental caries K02.9 [place] [address] 02497- 4156 Jan, Morbid obesity E66.01 ; Pre-diabetes R73.09 and Onychomycosis B35.1 [facility] [address], [place] [address] 22 Jan, 2016 Immunization due Z23 [facility] [address] [place] [address] [id number] 15 Jan, 2016 Encounter for dental examination Z01.20 [facility] [address] [place] [address] 24227- 1841 12 Dec, 2015 Sinusitis, acute maxillary J01.00 [facility] [id number] [place] [address] 26494- 9363 27 Nov, 2015 [facility] [id number] [place] [address] 43241- 4722 Nov, [facility] [id number] [place] [address] 30855- 4633 Nov, [facility] [id number] [place] [address] 28750- 9230 Nov, [facility] [id number] [place] [address] 64918- 6194 Nov, Bilateral low back pain with sciatica, sciatica laterality unspecified M54.40 ; History of back surgery Z98.89 ; Radiculopathy, thoracic region M54.14 ; Radiculopathy of lumbosacral region M54.17 and Bilateral thoracic back pain M54.6 [facility] [address] [place] [address] 65148- 4386 Nov, Morbid obesity E66.01 and General medical exam Z00.00 [facility] [address] [place] [address] 15102- 7779 19 Nov, 2015 Morbid obesity E66.01 and General medical exam Z00.00 [facility] [address] [place] [address] 50995- 1517 12 Nov, 2015 General medical exam Z00.00 ; Lumbago M54.5 ; History of back surgery Z98.89 ; Bilateral low back pain with sciatica, sciatica laterality unspecified M54.40 ; Radiculopathy, thoracic region M54.14 ; Radiculopathy of lumbosacral region M54.17 and Bilateral thoracic back pain M54.6 [facility] [id number] [place] [address] 76076- 0720 12 Nov, 2015 General medical exam Z00.00 ; Morbid obesity E66.01 ; Substance abuse F19.10 ; Tobacco abuse Z72.0 ; Tobacco abuse counseling Z71.6 ; Lumbago M54.5 ; History of back surgery Z98.89 and Right upper quadrant pain R10.11 [facility] [address], [place] [address]- 6282 14 Feb, 2015 [facility] [id number] [place] [address] 86278- 5334 Feb, [facility] [id number] [place] [address] 91360- 7996 Jan, [facility] [id number] [place] [address] 13706- 7669 Jan, [facility] [id number] [place] [address] 56454- 7231 Jan, [facility] [id number] [place] [address] 12700- 9690 Jan, [facility] [address], [place] [address]- 1879 Oct, [facility] [id number] [place] [address] 19567- 9153 Oct, [facility] [address], [place] [address]- 7698 Sep, [facility] [id number] [place] [address] 710982- 6851 Sep, [facility] [address]- 4757 Jul, [facility] [id number] [place] [address] [place] [address]- 8211 Jul, [facility] [place] [facility] [address] [id number] [place] [address]- 4714 May, [facility] [place] [facility] [address] [id number] [place] [address]- 1240 May, [facility] [place] [facility] [address] [id number] [place] [address]- 3440 May, [facility] [place] [facility] [address] [id number] [place] [address]- 5500 May, [facility] [place] [facility] [address] [id number] [place] [address]- 4694 Apr, [facility] [place] [facility] [address] [id number] [place] [address]- 7390 Apr, [facility] [place] [facility] [address] [id number] [place] [address]- 2574 Apr, [facility] [place] [facility] [address] [id number] [place] [address]- 4875 Apr, [facility] [place] [facility] [address] [id number] [place] [address]- 2951 Apr, [facility] [place] [facility] [address] [id number] [place] [address]- 7100 Apr, [facility] [place] [facility] [address] [id number] [place] [address]- 6388 18 Apr, 2014 [facility] [place] [facility] [address] [id number] [address]- 9489 16 Apr, 2014 [facility] [place] [facility] [address] [id number] [place] [address]- 3719 15 Apr, 2014 [facility] [place] [facility] [address] [id number] [place] [address]- 4191 13 Apr, 2014 [facility] [place] [facility] [address] [id number] [place] [address] 12 Apr, 2014 [facility] [place] [facility] [address] [facility] [id number] [place] [address] Apr, IMMUNIZATIONS No Known Immunizations SOCIAL HISTORY [...] 2009- [facility]/ 2010 and 2011- [facility] 06/2010, 01/2011, 01/2012 Surgical History Right knee scope 10/24/2016 Hospitalization History Surgery(s)/Childbirth(s) only Hospitalization History CHF/ Pneumonia- Post Delivery of Child Hospitalization History Pain r/t back surgery- hospitalized for pain control x3 Hospitalization History [facility] in [place] 02/2016 Hospitalization History [facility] after 3rd back surgery
--- OUTSIDE RECORDS SUMMARY | 2018-08-19 14:56 | XMS REPORT ---
Author Author JULIETA MEDINA [facility] Address [address] [place] [address] Care Team Providers Care Scientific Technical Writer Name Role Phone JULIETA MEDINA Unavailable PROBLEMS Type Condition ICD9-CM Code [id number] Code Onset Dates Condition Status SNOMED Code Problem Tobacco abuse Z72.0 Active 40388049 Problem Morbid obesity E66.01 Active 832142897 Problem Substance abuse F19.10 Active 86987224 Problem Bilateral thoracic back pain M54.6 Active 887263787 Problem PMS (premenstrual syndrome) N94.3 Active 40809672 Problem PCOS (polycystic ovarian syndrome) E28.2 Active 42916453 Problem General medical exam Z00.00 Active 586557458 Problem Pre-diabetes R73.09 Active 9369224 Problem Onychomycosis B35.1 Active 152253775 Problem Right upper quadrant pain R10.11 Active 603016961 Problem History of back surgery Z98.89 Active 115613765 Problem Lumbago M54.5 Active 419170260 Assessment Medial meniscus tear, right, subsequent encounter S83.241D Jul, Active 483323522 Problem Tobacco abuse counseling Z71.6 Active 934942209 ALLERGIES Unknown Allergies SOCIAL HISTORY No smoking Hx information available PLAN OF CARE VITAL SIGNS Height 64 in 2016-07-27 Blood pressure systolic 118 mmHg 2016-07-27 Blood pressure diastolic 70 mmHg 2016-07-27 MEDICATIONS Unknown Medications RESULTS Name Result Date Reference Range MRI : Knee, Right w/o contrast 2016-08-02 PROCEDURES Procedure Date Ordered Related Diagnosis Body Site Office Visit, Est Pt., Level 3 Jul 27, 2016 IMMUNIZATIONS No Known Immunizations
--- OUTSIDE RECORDS SUMMARY | 2018-08-19 14:56 | XMS REPORT | Continuity of Care Document ---
Author Author Formerly [facility], Later [facility] Address Unknown Phone Unavailable Allergies Active Description Code Type Severity Reaction Onset Reported/Identified Relationship to Patient Clinical Status Yes Keflex Drug Allergy N/A N/A 05/07/2014 Yes No Known Drug Allergies [id number] Drug Allergy Unknown N/A 10/02/2014 Yes cephalexin [id number] Drug Allergy Severe RASH 11/25/2015 Medications There is no data. Problems Date Dx Coded Attending Type Code Diagnosis Diagnosed By 10/25/1341 RAOUL NGUYỄN Ot M54.41 LUMBAGO WITH SCIATICA, RIGHT SIDE 05/07/2014 JEANETTE MITCHELL APRN A 625.3 DYSMENORRHEA 05/07/2014 JEANETTE MITCHELL APRN A V72.31 NURSING INFORMATICS ANALYST EXAM, ROUTINE 05/07/2014 JEANETTE MITCHELL APRN A V73.81 HPV SCREENING 05/07/2014 JEANETTE MITCHELL APRN A V74.5 STD SCREEN 05/07/2014 JEANETTE MITCHELL APRN A V76.10 BREAST CANCER SCREENING 05/07/2014 JEANETTE MITCHELL APRN A V76.2 CERVICAL CANCER SCREENING (PAP SMEAR) 05/07/2014 NOVA OVIEDO APRN R 625.3 DYSMENORRHEA 05/07/2014 KITA OVIEDO APRNIA R V72.31 NURSING INFORMATICS ANALYST EXAM, ROUTINE 05/07/2014 NOVA OVIEDO APRN R V73.81 HPV SCREENING 05/07/2014 KITA OVIEDO APRNIA R V74.5 STD SCREEN 05/07/2014 KITA OVIEDO APRNIA R V76.10 BREAST CANCER SCREENING 05/07/2014 KITA OVIEDO APRNIA R V76.2 CERVICAL CANCER SCREENING (PAP SMEAR) 05/07/2014 DEION HINKLE MD 625.3 DYSMENORRHEA 05/07/2014 DEION HINKLE MD V72.31 NURSING INFORMATICS ANALYST EXAM, ROUTINE 05/07/2014 DEION HINKLE MD V73.81 HPV SCREENING 05/07/2014 DEION HINKLE MD V74.5 STD SCREEN 05/07/2014 DEION HINKLE MD V76.10 BREAST CANCER SCREENING 05/07/2014 DEION HINKLE MD V76.2 CERVICAL CANCER SCREENING (PAP SMEAR) 05/07/2014 DEION HINKLE MD 625.3 DYSMENORRHEA 05/07/2014 DEION HINKLE MD V72.31 NURSING INFORMATICS ANALYST EXAM, ROUTINE 05/07/2014 DEION HINKLE MD V73.81 HPV SCREENING 05/07/2014 DEION HINKLE MD V74.5 STD SCREEN 05/07/2014 DEION HINKLE MD V76.10 BREAST CANCER SCREENING 05/07/2014 DEION HINKLE MD V76.2 CERVICAL CANCER SCREENING (PAP SMEAR) 05/07/2014 EVIE BENÍTEZ DO 625.3 DYSMENORRHEA 05/07/2014 EVIE BENÍTEZ DO K V72.31 NURSING INFORMATICS ANALYST EXAM, ROUTINE 05/07/2014 EVIE BENÍTEZ DO V73.81 HPV SCREENING 05/07/2014 EVIE BENÍTEZ DO K V74.5 STD SCREEN 05/07/2014 EVIE BENÍTEZ DO K V76.10 BREAST CANCER SCREENING 05/07/2014 EVIE BENÍTEZ DO K V76.2 CERVICAL CANCER SCREENING (PAP SMEAR) 05/07/2014 FARHAD EAGLE APRN R 625.3 DYSMENORRHEA 05/07/2014 LYNSEY EAGLE APRNINA R V72.31 NURSING INFORMATICS ANALYST EXAM, ROUTINE 05/07/2014 LYNSEY EAGLE APRNINA R V73.81 HPV SCREENING 05/07/2014 FCO MALDONADO FARHAD R V74.5 STD SCREEN 05/07/2014 FCO MALDONADO FARHAD R V76.10 BREAST CANCER SCREENING 05/07/2014 LYNSEY EAGLE APRNINA R V76.2 CERVICAL CANCER SCREENING (PAP SMEAR) 05/14/2014 NOVA OIVEDO APRN 477.9 ALLERGIC RHINITIS CAUSE UNSPECIFIED 05/14/2014 DEION HINKLE MD 477.9 ALLERGIC RHINITIS CAUSE UNSPECIFIED 05/14/2014 DEION HINKLE MD 477.9 ALLERGIC RHINITIS CAUSE UNSPECIFIED 05/14/2014 EVIE BENÍTEZ DO K 477.9 ALLERGIC RHINITIS CAUSE UNSPECIFIED 05/14/2014 FARHAD EAGLE APRN R 477.9 ALLERGIC RHINITIS CAUSE UNSPECIFIED 05/28/2014 DEION HINKLE MD N 795.03 ABNORMAL PAP - LGSIL 05/28/2014 DEION HINKLE MD N 795.03 ABNORMAL PAP - LGSIL 05/28/2014 EVIE BENÍTEZ DO 795.03 ABNORMAL PAP - LGSIL 05/28/2014 FARHAD EAGLE APRN R 795.03 ABNORMAL PAP - LGSIL 07/28/2014 DEION HINKLE MD N 465.9 UPPER RESPIRATORY INFECTION 07/28/2014 DEION HINKLE MD N 724.2 BACK PAIN, LOWER 07/28/2014 EVIE BENÍTEZ DO K 465.9 UPPER RESPIRATORY INFECTION 07/28/2014 EVIE BENÍTEZ DO K 724.2 BACK PAIN, LOWER 07/28/2014 FARHAD EAGLE APRN R 465.9 UPPER RESPIRATORY INFECTION 07/28/2014 FARHAD EAGLE APRN R 724.2 BACK PAIN, LOWER 10/02/2014 ALISA PALOMARES L Ot 722.10 10/02/2014 ALISA PALOMARES L Ot 724.5 02/04/2015 EVIE BENÍTEZ DO K 296.33 MO DEPRESSIVE RECURRENT SEVERE W/O PSYCHOTIC BEHAVIOR 02/04/2015 EVIE BENÍTEZ DO K 304.80 SA POLYSUB DEP 02/04/2015 EVIE BENÍTEZ DO K 312.30 I IMPULSE CONTROL DISORDER NOS 02/04/2015 FARHAD EAGLE APRN R 296.33 MO DEPRESSIVE RECURRENT SEVERE W/O PSYCHOTIC BEHAVIOR 02/04/2015 FARHAD EAGLE APRN R 304.80 SA POLYSUB DEP 02/04/2015 LYNSEY EAGLE APRNINA R 312.30 I IMPULSE CONTROL DISORDER NOS 02/26/2015 EVIE BENÍTEZ DO K 780.52 INSOMNIA UNSPECIFIED 02/26/2015 EVIE BENÍTEZ DO K V58.69 HIGH RISK MEDICATION 02/26/2015 FARHAD EAGLE APRN R 780.52 INSOMNIA UNSPECIFIED 02/26/2015 FARHAD EAGLE APRN R V58.69 HIGH RISK MEDICATION 03/19/2015 FARHAD EAGLE APRN R 296.90 MOOD DISORDER NOS 03/19/2015 FCO BATTERY ASSEMBLER PLASTIC, FARHAD R 300.02 AN GEN ANXIETY 03/19/2015 FCO BATTERY ASSEMBLER PLASTIC FARHAD R 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 09/22/2015 Ot 722.52 09/22/2015 KIKE JEFFERSON DO Ot F17.210 09/22/2015 KIKE JEFFERSON DO Ot K21.9 09/22/2015 KIKE JEFFERSON DO Ot Z87.898 09/22/2015 Ot 722.52 11/25/2015 Ot 722.52 11/25/2015 MARVIN SOLOMON, JAYDEN Mcleod Ot F11.21 11/25/2015 MARVIN SOLOMON, JAYDEN Mcleod Ot F17.210 11/25/2015 MARVIN SOLOMON, JAYDEN Mcleod Ot G89.29 11/25/2015 MARVIN SOLOMON, JAYDEN Mcleod Ot M54.5 11/25/2015 Ot 722.52 12/13/2015 Ot 722.52 01/18/2016 Ot R10.11 01/18/2016 Ot Z00.00 01/19/2016 ELIA ANTONIO BATTERY ASSEMBLER PLASTIC Ot M54.14 01/19/2016 ELIA ANTONIO BATTERY ASSEMBLER PLASTIC Ot M54.17 01/19/2016 ELIA ANTONIO BATTERY ASSEMBLER PLASTIC Ot M54.40 01/19/2016 ELIA ANTONIO BATTERY ASSEMBLER PLASTIC Ot M54.6 01/19/2016 ELIA ANTONIO BATTERY ASSEMBLER PLASTIC Ot Z98.89 05/15/2016 ELIA ANTONIO BATTERY ASSEMBLER PLASTIC Ot M54.14 RADICULOPATHY, THORACIC REGION 05/15/2016 ELIA ANTONIO BATTERY ASSEMBLER PLASTIC Ot M54.17 RADICULOPATHY, LUMBOSACRAL REGION 05/15/2016 ELIA ANTONIO BATTERY ASSEMBLER PLASTIC Ot M54.40 LUMBAGO WITH SCIATICA, UNSPECIFIED SIDE 05/15/2016 ELIA ANTONIO BATTERY ASSEMBLER PLASTIC Ot M54.6 PAIN IN THORACIC SPINE 05/15/2016 ELIA ANTONIO BATTERY ASSEMBLER PLASTIC Ot Z98.89 OTHER SPECIFIED POSTPROCEDURAL STATES 05/22/2016 RAOUL NGUYỄN Ot M54.41 LUMBAGO WITH SCIATICA, RIGHT SIDE 06/08/2016 RAOUL NGUYỄN Ot M54.41 LUMBAGO WITH SCIATICA, RIGHT SIDE 06/14/2016 RAOUL NGUYỄN VARNISHER PLASTICOATER Ot M54.41 LUMBAGO WITH SCIATICA, RIGHT SIDE 08/16/2016 ANTONIO, ELIA Hickman BATTERY ASSEMBLER PLASTIC Ot M54.14 RADICULOPATHY, THORACIC REGION 08/16/2016 PACO ELIA R BATTERY ASSEMBLER PLASTIC Ot M54.17 RADICULOPATHY, LUMBOSACRAL REGION 08/16/2016 ANTONIOELIA BATTERY ASSEMBLER PLASTIC Ot M54.40 LUMBAGO WITH SCIATICA, UNSPECIFIED SIDE 08/16/2016 ELIA ANTONIO BATTERY ASSEMBLER PLASTIC Ot M54.6 PAIN IN THORACIC SPINE 08/16/2016 ELIA ANTONIO BATTERY ASSEMBLER PLASTIC Ot Z98.89 OTHER SPECIFIED POSTPROCEDURAL STATES 08/17/2016 JULIETA MEDINA VARNISHER PLASTICOATER Ot M17.11 UNILATERAL PRIMARY OSTEOARTHRITIS, RIGHT 08/17/2016 JULIETA MEDINAP Ot M25.461 EFFUSION, RIGHT KNEE 08/17/2016 JULIETA MEDINAP Ot S83.241A OTH TEAR OF MEDIAL MENISCUS, CURRENT INJ 08/17/2016 JULIETA MEDINA VARNISHER PLASTICOATER Ot X58.XXXA EXPOSURE TO OTHER SPECIFIED FACTORS, INI 08/17/2016 JULIETA MEDINA VARNISHER PLASTICOATER Ot Y99.8 OTHER EXTERNAL CAUSE STATUS 09/05/2016 JULIETA MEDINAP Ot M17.11 UNILATERAL PRIMARY OSTEOARTHRITIS, RIGHT 09/05/2016 JULIETA MEDINAP Ot M25.461 EFFUSION, RIGHT KNEE 09/05/2016 JULIETA MEDINAP Ot S83.241A OTH TEAR OF MEDIAL MENISCUS, CURRENT INJ 09/05/2016 JULIETA MEDINAP Ot X58.XXXA EXPOSURE TO OTHER SPECIFIED FACTORS, INI 09/05/2016 JULIETA MEDINA VARNISHER PLASTICOATER Ot Y99.8 OTHER EXTERNAL CAUSE STATUS Procedures Code Description [place] [address] TRICHOMONAS (IN-HOUSE) 05/07/2014 76014 SYPHILLIS-[facility] 05/07/2014 17732 HIV (STATE [facility]) 05/07/2014 53130 GC/CHLAM PROBE ([facility]) 05/07/2014 15372 PAP SMEAR 05/07/2014 Q0091 PAP SMEAR OBTAIN SMEAR 05/07/2014 09284 HEPATITIS PROFILE 05/08/2014 20607 CULTURE UROGENITAL 05/10/2014 93205 TEST, URINE (IN- HOUSE) 05/28/2014 61648 COLP W/ BX & ECC 05/28/2014 83249 PSYTX PT&/FAMILY 45 MINUTES 03/19/2015 Results Test Result Range CBC With Differential/Platelet - 05/02/17 10:22 WBC 14.1 x10E3/uL 3.4-10.8 RBC 5.16 x10E6/uL 3.77-5.28 Hemoglobin 14.7 g/dL 11.1-15.9 Hematocrit 44.8 % 34.0-46.6 MCV 87 fL 79-97 MCH 28.5 pg 26.6-33.0 MCHC 32.8 g/dL 31.5-35.7 RDW 14.0 % 12.3-15.4 Platelets 278 x10E3/uL 150-379 Neutrophils 70 % Lymphs 21 % Monocytes 7 % Eos 1 % Basos 0 % Neutrophils (Absolute) 9.9 x10E3/uL 1.4-7.0 Lymphs (Absolute) 2.9 x10E3/uL 0.7-3.1 Monocytes(Absolute) 1.0 x10E3/uL 0.1-0.9 Eos (Absolute) 0.2 x10E3/uL 0.0-0.4 Baso (Absolute) 0.1 x10E3/uL 0.0-0.2 Immature Granulocytes 1 % Immature Grans (Abs) 0.1 x10E3/uL 0.0-0.1 Comp. Metabolic Panel (14) - 05/02/17 10:22 Glucose, Serum 90 mg/dL 65-99 BUN 15 mg/dL 6-20 Creatinine, Serum 0.74 mg/dL 0.57-1.00 eGFR If NonAfricn Am 105 mL/min/1.73 >59 eGFR If Africn Am 121 mL/min/1.73 >59 BUN/Creatinine Ratio 20 9-23 Sodium, Serum 141 mmol/L 134-144 Potassium, Serum 4.7 mmol/L 3.5-5.2 Chloride, Serum 99 mmol/L 96-106 Carbon Dioxide, Total 22 mmol/L 18-29 Calcium, Serum 9.5 mg/dL 8.7-10.2 Protein, Total, Serum 7.3 g/dL 6.0-8.5 Albumin, Serum 4.7 g/dL 3.5-5.5 Globulin, Total 2.6 g/dL 1.5-4.5 A/G Ratio 1.8 1.2-2.2 Bilirubin, Total 0.4 mg/dL 0.0-1.2 Alkaline Phosphatase, S 81 IU/L 39-117 AST (SGOT) 14 IU/L 0-40 ALT (SGPT) 15 IU/L 0-32 Lipid Panel - 05/02/17 10:22 Cholesterol, Total 188 mg/dL 100-199 Triglycerides 87 mg/dL 0-149 HDL Cholesterol 45 mg/dL >39 VLDL Cholesterol Maikel 17 mg/dL 5-40 LDL Cholesterol Calc 126 mg/dL 0-99 Insulin - 05/02/17 10:22 Insulin 13.0 uIU/mL 2.6-24.9 Encounters ACCT No. Visit Date/Time Discharge Status Pt. Type Provider Facility Loc./Unit Complaint [id number] 03/19/2015 11:40:00 03/19/2015 23:59:59 CLS Outpatient FARHAD EAGLE APRN [id number] 02/26/2015 14:59:00 02/26/2015 23:59:59 CLS Outpatient EVIE BENÍTEZ DO [id number] 07/28/2014 11:45:00 07/28/2014 23:59:59 CLS Outpatient DEION HINKLE MD [id number] 05/28/2014 13:34:00 05/28/2014 23:59:59 CLS Outpatient DEION HINKLE MD [id number] 05/14/2014 16:58:00 05/14/2014 23:59:59 CLS Outpatient NOVA OVIEDO APRN [id number] 05/07/2014 15:51:00 05/07/2014 23:59:59 CLS Outpatient JEANETTE MITCHELL APRN [id number] 05/03/2017 11:08:00 Document Registration [id number] 04/04/2018 10:00:00 04/04/2018 23:59:59 CLS Outpatient KIMANI POLLACK MD [facility] [id number] 08/16/2016 14:15:00 08/16/2016 23:59:59 CLS Outpatient JULIETA MEDINA [facility] RAD MEDIAL MENISCUS TEAR RT KNEE [id number] 06/14/2016 13:00:00 06/14/2016 13:42:00 DIS Outpatient RAOUL NGUYỄN [facility] REHAB LOW BACK PAIN [id number] 12/24/2015 14:48:00 12/24/2015 23:59:59 CLS Outpatient ELIA ANTONIO APRN [facility] RAD LUMBAGO WITH A HISTORY OF BACK SURGERY [id number] 11/25/2015 08:57:00 11/25/2015 10:34:00 DIS Emergency JAYDEN WONG MD [facility] ER [id number] 09/22/2015 16:26:00 09/22/2015 18:30:00 DIS Emergency KIKE JEFFERSON DO [facility] ER [id number] 10/02/2014 12:28:00 10/02/2014 15:51:00 DIS Emergency ALISA PALOMARES [facility] ER [id number] 12/17/2015 07:04:00 Document Registration [id number] 02/07/2011 07:30:00 Document Registration
--- OUTSIDE RECORDS SUMMARY | 2018-08-19 14:56 | XMS REPORT ---
Author Author ELIA ANTONIO Organization [employer] Address Unknown Phone Unavailable Care Team Providers Care Inspector Aligning Name Role Phone ELIA ANTONIO CP Unavailable Allergies No Known Allergies Problems Problem Type Condition Code Onset Dates Condition Status Assessment History of back surgery Z98.89 Active Problem Right upper quadrant pain R10.11 Active Assessment Bilateral low back pain with sciatica, sciatica laterality unspecified M54.40 Active Problem Morbid obesity E66.01 Active Problem Substance abuse F19.10 Active Problem General medical exam Z00.00 Active Problem Lumbago M54.5 Active Problem History of back surgery Z98.89 Active Problem Tobacco abuse Z72.0 Active Problem Tobacco abuse counseling Z71.6 Active Assessment Bilateral thoracic back pain M54.6 Active Assessment Radiculopathy of lumbosacral region M54.17 Active Assessment Radiculopathy, thoracic region M54.14 Active Medications No Known Medications Results No Known Results Summary Purpose [email or web address] Submission
--- OUTSIDE RECORDS SUMMARY | 2018-08-19 14:56 | XMS REPORT ---
Author Author ELIA ANTONIO Organization [employer] Address Unknown Phone Unavailable Care Team Providers Care Pie Dough Roller Name Role Phone ELIA ANTONIO CP Unavailable Allergies, Adverse Reactions, Alerts Substance Reaction Event Type Keflex Info Not Available Drug Allergy Problems Problem Type Condition Code Onset Dates Condition Status Problem Right upper quadrant pain R10.11 Active Assessment Sinusitis, acute maxillary J01.00 Active Problem Morbid obesity E66.01 Active Problem Substance abuse F19.10 Active Problem General medical exam Z00.00 Active Problem Lumbago M54.5 Active Problem History of back surgery Z98.89 Active Problem Tobacco abuse Z72.0 Active Problem Tobacco abuse counseling Z71.6 Active Medications Medication Code System Code Instructions Start Date End Date Status Dosage Fluticasone Propionate [facility] [address]-49 50 MCG/ACT Nasally Once a day Jan 07, 2016 1 spray in each nostril Mucinex [facility] [address]-92 600 MG Orally every 12 hrs Jan 07, 2016 1 tablet as needed Wellbutrin [facility] [address]-89 150 Orally Twice a day 1 tablet Augmentin [facility] [address]-72 875-125 MG Orally every 12 hrs Jan 07, 2016 Jan 17, 2016 1 tablet BuPROPion HCl (XL) [facility] [address]-42 150 MG Orally Once a day Dec 07, 2015 1 tablet in the morning daily for 3 days, then 150 mg twice a day Procedures Procedure Coding System Code Date Office Visit, Est Pt., Level 3 CPT-4 34662 Jan 07, 2016 Vital Signs Date/Time: Jan 07, 2016 Temperature 98.0 F Weight 257.0 lbs Height 64 in BMI 44.11 Index Blood Pressure Diastolic 76 mmHg Blood Pressure Systolic 130 mmHg Cardiac Monitoring Heart Rate 80 bpm Results No Known Results Summary Purpose [employer] Submission
--- OUTSIDE RECORDS SUMMARY | 2018-08-19 14:56 | XMS REPORT ---
Author Author CARISA PALUMBO [facility] [employer] Address Unknown Phone Unavailable Care Team Providers Care Sales And Marketing Engineer Name Role Phone CARISA PALUMBO CP Unavailable Allergies, Adverse Reactions, Alerts Substance [...] PCOS (polycystic ovarian syndrome) E28.2 Active Assessment Bilateral thoracic back pain M54.6 Active Problem Right upper quadrant pain R10.11 Active Assessment Tobacco abuse Z72.0 Active Problem History of back surgery Z98.89 Active Assessment Substance abuse F19.10 Active Problem Lumbago M54.5 Active Medications Medication Code System Code Instructions Start Date End Date Status Dosage Naprosyn [facility] [address]-20 500 MG Orally every 12 hrs May 02, 2016 1 tablet as needed Ibuprofen [facility] [address]-90 800 MG Orally Three times a day 1 tablet as needed Cyclobenzaprine HCl [facility] [address]-64 10 mg Orally Three times a day as needed for pain May 15, 2016 1/2 to 1 tablet Chantix [facility] [address]-02 1 MG Orally Twice a day 1 tablet Procedures Procedure Coding System Code Date Office Visit, Est Pt., Level 4 CPT-4 58326 June 01, 2016 Vital Signs Date/Time: June 01, 2016 Cardiac Monitoring Heart Rate 80 bpm Weight 251.8 lbs Height 64 in Blood Pressure Diastolic 78 mmHg Blood Pressure Systolic 108 mmHg Results No Known Results Summary Purpose [employer] Submission
--- OUTSIDE RECORDS SUMMARY | 2018-08-19 14:56 | XMS REPORT ---
Author Author CARISA PALUMBO [facility] Address [address] [place] [address] Care Team Providers Care Health Underwriter Name Role Phone KAELYN PALUMBONETTE Unavailable PROBLEMS Type Condition ICD9-CM Code ZMZ23-RY Code Onset Dates Condition Status SNOMED Code Problem Tobacco abuse counseling Z71.6 Active 255012837 Problem Morbid obesity E66.01 Active 183843698 Problem Right upper quadrant pain R10.11 Active 682373742 Problem Anxiety F41.9 Active 41790734 Problem Bilateral thoracic back pain M54.6 Active 759041564 Problem Pre-diabetes R73.09 Active 6736317 Problem PCOS (polycystic ovarian syndrome) E28.2 Active 98912224 Problem PMS (premenstrual syndrome) N94.3 Active 30331830 Problem Onychomycosis B35.1 Active 101625718 Problem General medical exam Z00.00 Active 703498651 Problem Substance abuse F19.10 Active 22656805 Problem Tobacco abuse Z72.0 Active 02118969 Problem H/O bursectomy Z98.890 Active 102441316 Problem Lumbago M54.5 Active 805946447 ALLERGIES Substance Reaction Event Type Date Status Keflex Unknown Drug Allergy Jan, Active SOCIAL HISTORY Never Assessed PLAN OF CARE Activity Details Follow Up 3 Months, prn Reason: VITAL SIGNS Height 64 in 2017-01-30 Weight 258.2 lbs 2017-01-30 Temperature 98.0 degrees Fahrenheit 2017-01-30 Heart Rate 84 bpm 2017-01-30 Respiratory Rate 20 2017-01-30 BMI 44.32 kg/m2 2017-01-30 Blood pressure systolic 108 mmHg 2017-01-30 Blood pressure diastolic 76 mmHg 2017-01-30 MEDICATIONS Medication Instructions Dosage Frequency Start Date End Date Duration Status Ibuprofen 800 MG Orally Three times a day 1 tablet as needed 8h Active RESULTS Name Result Date Reference Range A1C (IN HOUSE) 2017-01-30 A1C IN HOUSE 5.6 4.3 - 5.6 % Previous A1c Lot [id number] Exp date 09/2018 PROCEDURES Procedure Date Ordered Result Body Site ASSAY OF INSULIN January 30, 2017 GLYCATED HEMOGLOBIN TEST January 30, 2017 IMMUNIZATIONS No Known Immunizations MEDICAL (GENERAL) HISTORY Type Description Date Medical History abnormal liver function tests Medical History back pain Medical History degenerative disease lumbosacral spine Medical History depression Medical History past drug addiction Surgical History right shoulder arthroscopy 2005 Surgical History right carpal tunnel release Surgical History tonsillectomy and adenoidectomy 1993 Surgical History section 2005 Surgical History Back Surgery. 2009- [facility] and 2011- [facility] 06/2010, 01/2011, 01/2012 Surgical History Right knee scope 10/24/2016 Hospitalization History Surgery(s)/Childbirth(s) only Hospitalization History CHF/ Pneumonia- Post Delivery of Child Hospitalization History Pain r/t back surgery- hospitalized for pain control Hospitalization History [facility] in [place] 02/2016 Hospitalization History MSSA after 3rd back surgery
[2018-08-19] MEDS ORDERED: KETOROLAC 60 MG/2 ML VIAL IM ONE (15:00)
[2018-08-19] MEDS ORDERED: ORPHENADRINE 60 MG/2 ML (NORFLEX) AMP IM ONE (15:00)
[2018-08-19] MEDS ORDERED: METH-313 PO (15:05)
[2018-08-19] MEDS ORDERED: PRD20T PO (15:06)
--- NOTE | 2018-08-19 15:06 | ED Back Pain ---
General Chief Complaint: Back Problems Stated Complaint: BACK PAIN Source of Information: Patient Exam Limitations: No Limitations History of Present Illness Date Seen by Provider: Aug 19, 2018 Time Seen by Provider: 15:01 Initial Comments To ER with midline low back pain that began a few weeks ago without known injury. Pain does not radiate down either of her legs. No fevers or chills. No loss of bowel or bladder control. No loss of sensation of her genitals. Has a history of 2 prior back surgeries for bulging disc. She states that she has not had any troubles with bowel movements or urination. 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 She also took 2 of her friends hydrocodone last night to help control her back pain. Primary care Dr. Peterson at [facility]. Location: Lumbar Spine, Paraspinous Muscles Timing/Duration: 1-2 Days, Constant Severity: Moderate Associated Symptoms: lower back pain Allergies and Home Medications Allergies Coded Allergies: cephalexin (Verified Allergy, Severe, RASH, 11/25/15) Home Medications Ibuprofen 800 Mg Tablet, 800 MG PO q8h PRN for PAIN, (Reported) Methocarbamol 750 Mg Tablet, 750 MG PO Q4H PRN for PAIN-MODERATE TO SEVERE Prescribed by: RAFFI RAMIREZ on 08/19/18 1505 Prednisone 20 Mg Tab, 20 MG PO UD Prescribed by: JAYDEN WONG on 11/25/15 1023 Prednisone 20 Mg Tab, 40 MG PO DAILY Prescribed by: RAFFI RAMIREZ on 08/19/18 1506 Patient Home Medication List Home Medication List Reviewed: Yes Review of Systems Constitutional: see HPI EENTM: see HPI Respiratory: no symptoms reported Cardiovascular: no symptoms reported Genitourinary: no symptoms reported Musculoskeletal: see HPI, back pain Skin: no symptoms reported Past Ibxbeev-Ajtmpn-Gwmfqx Hx Immunizations Up To Date Date of Influenza Vaccine: Sep 25, 2014 Seasonal Allergies Seasonal Allergies: No Past Medical History Section, Orthopedic, Tonsillectomy Reproductive Disorders: No Irritable Bowel Chronic Back Pain Depression Physical Exam Vital Signs Vital Signs - First Documented 08/19/18 14:52 Temp 98.1 Pulse 114 Resp 22 Pulse Ox 99 O2 Delivery Room Air Capillary Refill : Height, Weight, BMI Height: 5'4" Weight: 250lbs. oz. 113.618419nw; BMI Method:Stated General Appearance: No Apparent Distress, WD/WN, Other (multiple sores on her legs, poor dentition, walks with a walker with another person's name attached to it.) Neck: Full Range of Motion, Normal Inspection Respiratory: No Accessory Muscle Use, No Respiratory Distress Gastrointestinal: Non Tender, Soft Back: Other (3 inch scar midline lumbar region with tenderness to palpation but no erythema or wounds.) Extremity: Normal Capillary Refill, Normal Inspection Neurologic/Psychiatric: Alert, Oriented x3 Skin: Normal Color, Warm/Dry, Other (multiple sores bilateral lower extremity) Progress/Results/Core Measures Results/Orders Lab Results Laboratory Tests Test 08/19/18 15:21 Range/Units White Blood Count 13.6 H 4.3-11.0 10^3/uL Red Blood Count 4.85 4.35-5.85 10^6/uL Hemoglobin 14.6 11.5-16.0 G/DL Hematocrit 43 35-52 % Mean Corpuscular Volume 88 80-99 FL Mean Corpuscular Hemoglobin 30 25-34 PG Mean Corpuscular Hemoglobin Concent 34 32-36 G/DL Red Cell Distribution Width 13.5 10.0-14.5 % Platelet Count 326 130-400 10^3/uL Mean Platelet Volume 10.5 H 7.4-10.4 FL Neutrophils (%) (Auto) 71 42-75 % Lymphocytes (%) (Auto) 21 12-44 % Monocytes (%) (Auto) 6 0-12 % Eosinophils (%) (Auto) 2 0-10 % Basophils (%) (Auto) 0 0-10 % Neutrophils # (Auto) 9.6 H 1.8-7.8 X 10^3 Lymphocytes # (Auto) 2.8 1.0-4.0 X 10^3 Monocytes # (Auto) 0.9 0.0-1.0 X 10^3 Eosinophils # (Auto) 0.2 0.0-0.3 10^3/uL Basophils # (Auto) 0.0 0.0-0.1 10^3/uL My Orders Orders - RAFFI RAMIREZ APRN Cbc With Automated Diff (08/19/18 15:00) Ketorolac Injection (Toradol Injection) (08/19/18 15:00) Orphenadrine Injection (Norflex Injectio (08/19/18 15:00) Medications Given in ED Current Medications Medications Dose Ordered Sig/Trudy Route Start Time Stop Time Status Last Admin Dose Admin Ketorolac Tromethamine 60 mg ONCE ONCE IM 08/19/18 15:00 08/19/18 15:01 DC 08/19/18 15:38 60 MG Orphenadrine Citrate 60 mg ONCE ONCE IM 08/19/18 15:00 08/19/18 15:01 DC 08/19/18 15:37 60 MG Vital Signs/I&O 08/19/18 14:52 Temp 98.1 Pulse 114 Resp 22 B/P (MAP) Pulse Ox 99 O2 Delivery Room Air Departure Impression Primary Impression: Chronic low back pain Disposition: HOME, SELF-CARE Condition: Stable Departure-Patient Inst. Decision time for Depature: 15:03 Referrals: EVIE BENÍTEZ DO (PCP) Primary Care Physician CARISA PALUMBO (Family) Primary Care Physician Patient Instructions: Low Back Pain (DC) Add. Discharge Instructions: 1. Follow-up with [facility] later this week. If the pain persists they may discuss an MRI. Steroids and muscle relaxers as directed. Return to ER for any worsening. All discharge instructions reviewed with patient and/or family. Voiced understanding. Scripts Prednisone (Prednisone) 20 Mg Tab 40 MG PO DAILY, #8 TAB Prov: RAFFI RAMIREZ APRN 08/19/18 Methocarbamol (Robaxin-750) 750 Mg Tablet 750 MG PO Q4H PRN for PAIN-MODERATE TO SEVERE, #14 TAB Prov: RAFFI RAMIREZ APRN 08/19/18 Work/School Note: Work Release Form Date Seen in the Emergency Department: Aug 19, 2018 Return to Work: Aug 21, 2018 RAFFI RAMIREZ APRN Aug 19, 2018 15:06
[2018-08-19 15:55] LABS: BASOPHILS % (AUTO) 0 % (0-10); EOSINOPHILS # (AUTO) 0.2 10^3/uL (0.0-0.3); EOSINOPHILS % (AUTO) 2 % (0-10); HEMATOCRIT 43 % (35-52); HEMOGLOBIN 14.6 G/DL (11.5-16.0); LYMPHOCYTES # (AUTO) 2.8 X 10^3 (1.0-4.0); LYMPHOCYTES % (AUTO) 21 % (12-44); MEAN CORPUSCULAR HEMOGLOBIN 30 PG (25-34); MEAN CORPUSCULAR HGB CONC 34 G/DL (32-36); MEAN CORPUSCULAR VOLUME 88 FL (80-99); MEAN PLATELET VOLUME 10.5 FL (7.4-10.4); MONOCYTES # (AUTO) 0.9 X 10^3 (0.0-1.0); MONOCYTES % (AUTO) 6 % (0-12); NEUTROPHILS # (AUTO) 9.6 X 10^3 (1.8-7.8); NEUTROPHILS % (AUTO) 71 % (42-75); PLATELET COUNT 326 10^3/uL (130-400); RED BLOOD COUNT 4.85 10^6/uL (4.35-5.85); RED CELL DISTRIBUTION WIDTH 13.5 % (10.0-14.5); WHITE BLOOD COUNT 13.6 10^3/uL (4.3-11.0)
[2018-08-19 16:13] VITALS: BP 104/70
== END 2018-08-19 16:15 | disposition home or self-care (01) ==
LOC: EDUNIT# 14:47 → ER 14:48
DX: M54.5 Low back pain (principal); G89.29 Other chronic pain; F32.9 Major depressive disorder, single episode, unspecified; Z88.1 Allergy status to other antibiotic agents; Z79.52 Long term (current) use of systemic steroids; Z87.19 Personal history of other diseases of the digestive system; Z98.890 Other specified postprocedural states; Z90.89 Acquired absence of other organs
CPT/HCPCS: 36415; 85025; 96372

== ENCOUNTER → 2018-09-10 | Outpatient (CLI) | payer OTHER ==
[~2018-09-10] MED LIST changes: +METH-313 PO
--- NOTE | 2018-09-10 14:09 | Diagnostic Imaging Report ---
PROCEDURE: MRI lumbar spine. TECHNIQUE: Multiplanar, multisequence MRI of the lumbar spine was performed without contrast. INDICATION: Chronic low back pain with multiple prior lumbar spine surgeries. Comparison is made with prior MRI of the lumbar spine from 12/24/2015. Post surgical changes of decompression laminectomy at L4-L5 level is seen. Vertebral body heights are maintained. No acute compression fracture or geographic marrow lesion is seen. There appears to be osseous fusion between L4 and L5 vertebral bodies. Conus is unremarkable at T12-L1 level. T12-L1: Central canal is widely patent. The neural foramina are widely patent. L1-L2: Unremarkable. L2-L3: Unremarkable. L3-L4: Degenerative disc disease is seen with disc space narrowing and desiccation with reactive changes in the adjacent endplates. There has been development of a wide-based midline disc bulge indenting the ventral thecal sac producing significant central canal stenosis. AP dimensions of the central canal is approximately 4 mm. There is also significant narrowing of bilateral lateral recesses, particularly on the right with moderate right neural foraminal stenosis. Left neural foramen is patent. L4-L5: Central canal is widely patent. There appears to be a right paramidline focal disc/osteophyte complex narrowing the right lateral recess. This was present on prior exam. Central canal and left neuroforamina are patent. L5-S1: Central canal is patent. There does appear to be moderate bilateral neural foraminal narrowing, similar to prior study. Paraspinous tissues are unremarkable. IMPRESSION: Postsurgical changes to the lumbar spine, as described. There is also significant degenerative disc disease at L3-L4 level. Patient has developed a large wide based midline disc bulge at the L3-L4 level resulting in severe central canal stenosis. There is also multilevel lateral recess and neural foraminal stenosis described level by level above. No acute compression fracture is detected. Dictated by: Dictated on workstation # [id number]
== END ==
LOC: RAD 09:44
PROVIDERS: ATTEND Internal Medicine
DX: M48.061 Spinal stenosis, lumbar region without neurogenic claudication (principal); M48.07 Spinal stenosis, lumbosacral region; M99.73 Connective tissue and disc stenosis of intervertebral foramina of lumbar region; M51.26 Other intervertebral disc displacement, lumbar region; M47.816 Spondylosis without myelopathy or radiculopathy, lumbar region; Z98.890 Other specified postprocedural states
CPT/HCPCS: 72148

== ENCOUNTER 2020-05-09 10:23 | Emergency (ER) | payer OTHER ==
[~2020-05-09] VITALS: Ht 162 cm; Wt 113.0 kg
--- OUTSIDE RECORDS SUMMARY | 2020-05-09 10:28 | XMS REPORT | Clinical Summary ---
Author Author [facility] Organization [facility] Address Unknown Phone Unavailable Care Team Providers Care Director Banking Name Role Phone Rodolfo Moonye MD Unavailable Lalo Johnson DO PCP Aminata Zelaya APRN Unavailable Celsa Sutherland RN Unavailable Unavailable Patricia Archer MD Unavailable Unavailable Source Comments Some departments are not documenting in the electronic medical record. If you d o not see the information that you expected, contact Release of Information in [facility] Information Management department at [phone] for further assistan ce in locating additional records.[facility] Allergies Comments Active Allergy Reactions Severity Noted Date Cephalexin RASH 03/15/2011 Medications End Date Status Medication Sig Dispensed Refills Start Date Active cyclobenzaprine HCl Take 10 mg by 0 (FLEXERIL PO) mouth as Needed. 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 HNP (herniated nucleus pulposus) 03/24/2011 Family History Medical History Relation Name Comments Alcohol abuse Father Cancer Father Depression Father Hypertension Father Heart Attack Maternal Grandmother Hyperlipidemia Mother Hypertension Mother Relation Name Status Comments Brother Alive Father Maternal Grandmother Mother Alive Sister Alive Social History Date Tobacco Use Types Packs/Day Years Used Former Smoker Cigarettes Smokeless Tobacco: Never Used Drinks/Week oz/Week Comments Alcohol Use rarely Yes Sex Assigned at Date Recorded Not on file Industry Job Start Date Occupation Not on file Not on file Not on file Travel End Travel History Travel Start No recent travel history available. 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 Temperature 16 04/16/2019 1:13 PM CDT Respiratory Rate 97% 04/16/2019 1:13 PM CDT Oxygen Saturation - - Inhaled Oxygen Concentration 102.1 kg (225 lb) 03/18/2019 1:22 PM CDT Weight 162.6 cm (5' 4") 03/18/2019 1:22 PM CDT Height 38.62 03/18/2019 1:22 PM CDT Body Mass Index Plan of Treatment Health Maintenance Due Date Last Done Comments DTAP/TDAP VACCINES (1 - 1999 Tdap) PHYSICAL (COMPREHENSIVE) 1999 EXAM CERVICAL CANCER SCREENING 2002 INFLUENZA VACCINE 08/26/2020 HEPATITIS C SCREENING Completed 02/20/2012 HIV SCREENING Completed 02/20/2012 Results Not on filefrom Last 3 Months Insurance Type Payer Benefit Subscriber ID Effective Phone Address Plan / Dates Group AETNA AETNA xxxxxxxxxx 2017-P CHOICE POS resent II ([place]) [place] [id number] Advance Directives Patient Funeral Counselor Explanation Type Date Recorded Advance Directive/DPOA Date Inactivated Comments Code Status Date Activated 03/28/2012 4:17 PM Full Code 02/17/2012 3:40 PM Provider has discussed Code Status Yes w/Patient or Family? 03/24/2011 3:21 PM Full Code 03/23/2011 7:30 PM Provider has discussed Code Status Yes w/Patient or Family? 03/23/2011 7:30 PM Full Code 03/23/2011 3:19 PM Provider has discussed Code Status Yes w/Patient or Family?
--- OUTSIDE RECORDS SUMMARY | 2020-05-09 10:28 | XMS REPORT | Encounter Summary ---
Author Author [facility] Address Unknown Phone Unavailable Care Team Providers Care Blow Torch Operator Name Role Phone PCP Unavailable Encounter Details Care Team Description Date Type Department Mulugeta Alejandra MD [address] [place] [address] [phone] [facility] [address] [place] [address] Social History Date Tobacco Use Types Packs/Day Years Used Never Assessed Sex Assigned at Date Recorded Not on file Industry Job Start Date Occupation Not on file Not on file Not on file Travel End Travel History Travel Start No recent travel history available. documented as of this encounter Plan of Treatment Not on filedocumented as of this encounter Procedures Comments Procedure Name Priority Date/Time Associated Diag nosis BASIC METABOLIC PANEL Routine 01/15/2003 7:19 PM BATTER OUT documented in this encounter Results * Basic Metabolic Panel (01/15/2003 7:19 PM BATTER OUT) Sodium 145 (H) 134 - 144 MEQ/L [facility] Potassium 4.6 3.6 - 5.0 MEQ/L [facility] Chloride 107 98 - 107 MEQ/L [facility] Carbon Dioxide 26 23 - 32 MEQ/L [facility] Anion Gap 12 3 - 15 [facility] Creatinine 0.8 0.5 - 1.5 MG/DL [facility] Blood Urea 9 5 - 20 MG/DL [facility] Nitrogen Glucose 94 65 - 110 MG/DL [facility] Calcium 9.4 8.8 - 10.5 MG/DL [facility] Specimen Blood Performing Organization Address City/State/Zipcode Ph one Number [facility] [address] [place], [place] [address] [place] documented in this encounter Visit Diagnoses Not on filedocumented in this encounter
--- OUTSIDE RECORDS SUMMARY | 2020-05-09 10:28 | XMS REPORT | Encounter Summary ---
Author Author [facility] Organization [facility] Address Unknown Phone Unavailable Care Team Providers Care Photonics Engineer Name Role Phone PCP Unavailable Encounter Details Care Team Description Date Type Department Mulugeta Alejandra MD [address] [place] [address] 02/02/2003 [facility] Encounter [address] [place] [address] Social History Date Tobacco Use [...] Procedure Name Priority Date/Time Associated Diag nosis TOTAL THYROXINE Routine 02/02/2003 8:15 PM UNDERWATER ROBOTICIST THYROID STIMULATING Routine 02/02/2003 HORMONE 8:15 PM UNDERWATER ROBOTICIST ROYCE QUALITATIVE Routine 02/02/2003 8:15 PM UNDERWATER ROBOTICIST documented in this encounter Results * Thyroid Stimulating Hormone (02/02/2003 8:15 PM UNDERWATER ROBOTICIST) Thyroid 3.79 f 0.35 - 5.50 UIU/ML [facility] Stimulating Hormone Specimen Blood Narrative Performed At Report [facility] Comments and Normal Ranges for Com ponent TSH(UIU/ML) Reference range changed 03-25-02. Performing Organization Address City/State/Zipcode Ph one Number [facility] [address] [place], [place] [address] [place] * Total Thyroxine (02/02/2003 8:15 PM UNDERWATER ROBOTICIST) Total Thyroxine 13.8 f (H) 4.5 - 11.0 UG/DL [facility] Specimen Blood Narrative Performed At Report [facility] Comments and Normal Ranges for Com ponent T4(UG/DL) Reference range changed 03-25-02. Performing Organization Address [place] Ph one Number [facility] [address] [place] [address] [place] * ROYCE Qualitative (02/02/2003 8:15 PM UNDERWATER ROBOTICIST) ROYCE Qualitative NEGATIVE NEGATIVE [facility] Specimen Blood Performing Organization Address [place] Ph one Number [facility] [address] [place] [phone] [place] documented in this encounter Visit Diagnoses Not on filedocumented in this encounter
--- OUTSIDE RECORDS SUMMARY | 2020-05-09 10:28 | XMS REPORT | Encounter Summary ---
Author Author [facility] Organization [facility] Address Unknown Phone Unavailable Care Team Providers Care Library Information Technician Name Role Phone PCP Unavailable Encounter Details Care Team Description Date Type Department Mulugeta Alejandra MD [address] [place] [address] [phone] 07/07/2004 Hist-Appointmen [facility] Social History Date Tobacco Use Types Packs/Day Years Used Never Assessed Sex Assigned at Date Recorded Not on file Industry Job Start Date Occupation Not on file Not on file Not on file Travel End Travel History Travel Start No recent travel history available. documented as of this encounter Plan of Treatment Not on filedocumented as of this encounter Visit Diagnoses Not on filedocumented in this encounter
--- OUTSIDE RECORDS SUMMARY | 2020-05-09 10:28 | XMS REPORT ---
Author Author Ifinity degreaser Admittedly [facility]. [facility] Address [address] [address] Care Team Providers Care Heel Blacker Name Role Phone JULIETA MEDINA Unavailable Unavailable RAOUL NGUYỄN Unavailable JACINTOPITO MITCHELL Unavailable JULIETA MEDINA Unavailable ELIA ANTONIO Unavailable Unavailable CARISA PALUMBO Unavailable Unavailable CARTER SENIOR Unavailable Unavailable NO, LOCAL PHYSICIAN Unavailable Unavailable [facility] Unavailable [phone] CARISA PALMUBO Unavailable CARISA PALUMBO Unavailable CARISA Shin Unavailable KIMANI POLLACK Unavailable KIMANI POLLACK Unavailable CARTER SENIOR Unavailable KIMANI POLLACK Unavailable KIMANI POLLACK Unavailable KIMANI POLLACK Unavailable EVIE BENÍTEZ Unavailable KIMANI POLLACK Unavailable KIMANI POLLACK Unavailable Migration, Doctor Unavailable Unavailable KIMANI POLLACK Unavailable Migration, Doctor Unavailable Unavailable FLORENCIO Burciaga Unavailable NOAH Naylor Unavailable RAFFI RAMIREZ APRN Unavailable Unavailable KIMANI POLLACK MD Unavailable Unavailable FARHAD Almeida Unavailable DEION HINKLE Unavailable JEANETTE Jeronimo Unavailable NOVA OVIEDO Unavailable KIMANI POLLACK Unavailable MANAN, DEION Unavailable JEANETTE Jeronimo Unavailable MANAN, DEION Unavailable FARHAD Almeida Unavailable Unavailable Unavailable Unavailable Unavailable Allergies The data below is from unstructured sources Allergen Type Severity Reaction Status Last Updated No Known Drug Allergies Active 10/02/14 No Information Medications Current Medications Medication Ingredient Drug Dose Dates Status Sig Sig Care Class(es) (Normalized) (Original) Provid er oseltamivir Oseltamivir Neuraminida 75 mg 02-19-20 Active take 1 Tamiflu 75 no 75 mg oral se 19 capsule by MG Orally name capsule (1 Inhibitor mouth once Once a day 1 source.) daily capsule 24h Jan, 10 days Active traMADol traMADol Opioid 50 mg 08-20-20 Active no Tramadol HCl no hydrochlori Translation Agonist 18 information 50 mg Oral ly name de 50 mg s: [ 3 times a oral tablet Tramadol day 1 tablet (1 source.) HCl 50 mg] as needed 8h Jul, Active Completed/Discontinued Medications Medication Ingredient Drug Dose Dates Status Sig Sig Care Class(es) (Normalized) (Original) Provid er methocarbam methocarbam Muscle 750 mg 08-19-20 Complete take 1 Methocarbamo Peter ol 750 mg ol Relaxant 18 d tablet by l J Hydraulic Repairer oral tablet mouth every (Robaxin-750 Ramirez (1 source.) four hours ) 750 Mg (no as needed Tablet 750 phone) for pain, Mg ORAL then take 1 Every 4HRS tablet by as needed mouth as for needed for Pain-Moderat pain e To Severe 14 Tab 08/19/18 Problems Active Problems Problem Normalized Date Last Normalized Normalized Provider Fa cility Classification Problem(s) Recorded Problem Problem Sta tus Duration Unclassified Acquired Episodic Active no name no informa tion (9 sources.) absence of other organs Translations: [ OTHER SPECIFIED POSTPROCEDURAL STATES] Residual Acquired Episodic Active RAFFI COOL Via codes; absence of [place] unclassified other organs Hospital - (1 source.) [place] ([address]) Allergic Allergy status Episodic Active RAFFI RAMIREZ VC V ia reactions (10 to other [place] sources.) antibiotic Hospital - agents status [place] ([address]) Other Body mass Chronic Active KIMANI POLLACK Communit y nutritional; index (BMI) [facility] endocrine; and 40.0-44.9, of [facility] metabolic adult [place] ([address]1988) disorders (20 Translations: sources.) [ - BMI 40.0-44.9, adult Z68.41] Other Body mass Chronic Active KIMANI Tanit y nutritional; index 40+ - 25279 [facility] Center endocrine; and severely obese of [facility] metabolic Translations: [place] ([address]85) disorders (16 [ BMI sources.) 40.0-44.9, adult] Other Effusion, Episodic Active no name no informati on non-traumatic right knee joint disorders (4 sources.) Residual H/O: surgery Episodic Active Doctor Community codes; Translations: [facility] unclassified [ H/O of [facility] (14 sources.) bursectomy] [place] ([address]) Other pelletizer tender Episodic Active RAFFI RAMIREZ [facility] Via aftercare (10 (current) use [place] sources.) of systemic Hospital - steroids [place] ([address]) Spondylosis; Lumbar disc Chronic Active KIMANI POLLACK VC Via intervertebral prolapse with , MD Fonseca disc radiculopathy Hospital - disorders; Translations: [place] other back [ Lumbar disc (13197) problems (12 disease with sources.) radiculopathy, SPINAL STENOSIS, LUMBAR REGION WITHOUT N, SPINAL STENOSIS, LUMBOSACRAL REGION, CONN TISS AND DISC STENOS OF INTVRT FORA, OTHER INTERVERTEBRAL DISC DISPLACEMENT, , SPONDYLOSIS W/O MYELOPATHY OR RADICULOPA] Other nervous Other chronic Chronic Active RAFFI RAMIREZ VC Via system pain [place] disorders (10 Hospital - sources.) [place] ([address]) Residual Other Episodic Active Doctor Community codes; specified [facility] unclassified postprocedural of [facility] (20 sources.) [facility] (72284) Translations: [ - History of back surgery Z98.89] Joint Other tear of Episodic Active no name no infor mation disorders and medial dislocations; meniscus, trauma-related current (4 sources.) injury, right knee, initial encounter Other Personal Episodic Active RAFFI RAMIREZ VC Via gastrointestin history of [facility] al disorders other diseases Hospital - (10 sources.) of the [place] digestive (12233) system Other Polycystic Chronic Active KIMANI POLLACK Communi ty endocrine [facility]ies [facility] [facility] disorders (16 Translations: of [facility] sources.) [ PCOS [place] (44464) (polycystic ovarian syndrome)] Other female Premenstrual Chronic Active KIMANI MUIRSHANNAN [facility]munity genital tension [address] [facility] disorders (16 syndrome of [facility] sources.) Translations: [place] (52660) [ PMS (premenstrual syndrome)] Osteoarthritis Unilateral Chronic Active no name no inf ormation (4 sources.) primary osteoarthritis , right knee Past or Other Problems Problem Normalized Date Last Normalized Normalized Provider Fa cility Classification Problem(s) Recorded Problem Problem Sta tus Duration External Exposure to no information no information no name no information Injury - other Natural / specified Environment (4 factors, sources.) initial encounter External Other external no information no information no name no information Injury - cause status Unspecified (4 sources.) Residual Other no information no information RAFFI [place] Via codes; ozzy Recioi unclassified postprocedural Hospital - (8 sources.) [facility] (75293) Procedures Procedure Normalized Procedure Procedure Result Performer Facility Date 05-07-2014 [facility] information [facility] 05-[facility]2014 Colposcopy cervix bx no information no name [facility] cervix & endocrv [facility] (20186) 05-07-2014 Cul bact xcpt urine no information no name [facility] blood/stool aerobic [facility] (37645) 05-07-2014 Cytp c/v auto thin lyr no information no name [facility] prepj scr mnl rescr [facility] (80836) 05-07-2014 Iadna chlamydia no information no name Communi [facility] trachomatis amplified [facility] probe [facility] (38468) 05-07-2014 Iadna trichomonas no information no name Commu nity [facility] vaginalis direct probe [facility] (20158) 05-07-2014 Obtaining screen pap no information no name Co [facility] smear [facility] (27977) 02-04-2015 Psychiatric diagnostic no information no name [facility] evaluation [facility] (40060) 05-07-2014 Syphilis test no information no name [facility] non-treponemal [facility] antibody qual [place] (07546) 05-28-2014 Urine test no information no name Co mmunity Health visual color cmprsn [facility] meths [place] (10434) Immunizations Normalized Immunization Date Notes Care Provider Facili ty Immunization vaccine no information EVIE BENÍTEZ [address] Via [facility] Translations: [ [place] () vaccine] Results Test Name Value Interpretation Reference Range Date Time Fa cility (Normalized) (Normalized) (Medline Reference) venous blood hemoglobin measurement (mass/volume) on 2018-08-19 Hemoglobin mass 14.6 g/dL (no code) 12.1 - 17.2 g/dL Via [place] conc (d) [facility] () blood neutrophils automated count (number/volume) on 2018-08-19 Neutrophils Auto 9.6 10*3/uL (H) 1.7 - 7 10*3/uL Via Marian #/vol (Bld) [facility] () blood monocytes/100 leukocytes on 2018-08-19 Monocytes/100 6 % (no code) 2 - 8 % Via [facility] WBC Auto (d) [facility] () blood monocytes automated count (number/volume) on 2018-08-19 Monocytes Auto 0.9 10*3/uL (no code) 0.3 - 0.9 Via Marian #/vol (Bld) 10*3/uL [facility] (22178) blood lymphocytes automated count (number/volume) on 2018-08-19 Lymphocytes Auto 2.8 10*3/uL (no code) 0.9 - 2.9 Via Paramjit ti #/vol (Bld) 10*3/uL [facility] (07743) blood leukocytes automated count (number/volume) on 2018-08-19 WBC Auto #/vol 13.6 10*3/uL (H) 3.5 - 10.5 Via Hemal i (Bld) 10*3/uL [facility] (62272) blood hematocrit (volume fraction) on 2018-08-19 Hematocrit Auto 43 % (no code) 36.1 - 50.3 % Via Chr isti Volume Fraction [facility] () blood erythrocytes automated count (number/volume) on 2018-08-19 RBC Auto #/vol 4.85 10*6/uL (no code) 4.2 - 6.1 Via Hemal i (Bld) 10*6/uL [facility] (71972) automated erythrocyte mean corpuscular volume on 2018-08-19 MCV Auto Entitic 88 fL (no code) 80 - 100 fL Via Chri sti volume (RBC) [facility] (12210) automated erythrocyte mean corpuscular hemoglobin concentration measurement (mass/volume) on 2018-08-19 MCHC Auto mass 34 g/dL (no code) 32 - 36 g/dL Via Paramjit ti conc (RBC) [facility] (84413) automated erythrocyte mean corpuscular hemoglobin (mass per erythrocyte) on 2018-08-19 MCH Auto Entitic 30 pg (no code) 27 - 31 pg Via Paramjit ti mass (RBC) [facility] (85484) automated erythrocyte distribution width ratio on 2018-08-19 Erythrocyte 13.5 % (no code) 11.6 - 14.6 % Via [facility] distribution Hospital width Auto Ratio [place] (RBC) (81781) automated eosinophil count on 2018-08-19 Eosinophils Auto 0.2 10*3/uL (no code) 0.05 - 0.5 Via Paramjit ti #/vol (Bld) 10*3/uL [facility] (61511) automated blood platelet mean volume measurement on 2018-08-19 Platelet mean 10.5 fL (H) 7.2 - 11.7 fL Via Paramjit ti volume Auto Hospital Entitic volume [place] (Bld) (03093) automated blood platelet count (count/volume) on 2018-08-19 Platelets Auto 326 10*3/uL (no code) 150 - 450 Via Marian #/vol (Bld) 10*3/uL [facility] (46748) automated blood neutrophils/100 leukocytes on 2018-08-19 Neutrophils/100 71 % (no code) 40 - 60 % Via Hemal i WBC Auto (Bld) [facility] (30802) automated blood lymphocytes/100 leukocytes on 2018-08-19 Lymphocytes/100 21 % (no code) 20 - 40 % Via Hemal i WBC Auto (Bld) [facility] (71347) automated blood eosinophils/100 leukocytes on 2018-08-19 Eosinophils/100 2 % (no code) 1 - 4 % Via Hemal i WBC Auto (Bld) [facility] (64800) automated blood basophils/100 leukocytes on 2018-08-19 Basophils/100 0 % (no code) 0.5 - 1 % Via Marian WBC Auto (Bld) [facility] (76252) automated blood basophil count (count/volume) on 2018-08-19 Basophils Auto 0.0 10*3/uL (no code) 0 - 0.3 10*3/uL Via Ch risti #/vol (Bld) [facility] (82591) other on 2018-04-04 Exp date 12/2019 (no code) [facility] (98045) Lot 5.2~5.5~0843 (no code) [facility] (31426) other on 2017-05-03 Albumin/Globulin 1.8 {ratio} (no code) 1 - 2.5 {ratio} 7 Not Available [Mass ratio] 09:0 (14531) Cholesterol in 17 mg/dL (no code) 05-03-2017 Not Availab le VLDL [Mass/Vol] 09:040 (06229) Erythrocyte 14.0 % (no code) 11.6 - 14.6 % 05-03-2017 Not Av ailable distribution 08: (98917) width (RBC) [Ratio] Globulin (S) 2.6 g/dL (no code) 2 - 3.5 g/dL 05-03-2017 Not Av ailable [Mass/Vol] 09:040400 (77892) Immature 0.1 10*3/uL (no code) 0 - 0.2 10*3/uL 05-03-2017 Not Available granulocytes 08: (19818) (Bld) [#/Vol] Immature 1 % (no code) 0 - 0.5 % 05-03-2017 Not Availabl e granulocytes/100 08: (03255) WBC (Bld) Insulin Qn 13.0 u[IU]/mL (no code) 2.6 - 24.9 05-03-2017 Not Av ailable u[IU]/mL 11:54-0400 (46904) MCHC (RBC) 32.8 g/dL (no code) 32 - 36 g/dL 05-03-2017 Not Avai lable [Mass/Vol] 08: (22998) metabolic panel on 2017-05-03 Albumin 4.7 g/dL (no code) 3.4 - 5.4 g/dL 05-03-2017 Not Johanna ilable [Mass/Vol] 09: (80916) ALP [Catalytic 81 U/L (no code) 44 - 147 U/L 05-03-2017 Not Available activity/Vol] 09: (51173) ALT [Catalytic 15 U/L (no code) 4 - 40 U/L 05-03-2017 Not Av ailable activity/Vol] 09: (34808) AST [Catalytic 14 U/L (no code) 10 - 34 U/L 05-03-2017 Not A vailable activity/Vol] 09: (36275) Bilirubin 0.4 mg/dL (no code) 0.1 - 1.2 mg/dL 05-03-2017 Not Av ailable [Mass/Vol] 09: (96936) Calcium 9.5 mg/dL (no code) 8.5 - 10.2 mg/dL 05-03-2017 Not A vailable [Mass/Vol] 09: (16729) Chloride 99 mmol/L (no code) 95 - 106 mmol/L 05-03-2017 Not Av ailable [Moles/Vol] 09: (60111) CO2 [Moles/Vol] 22 mmol/L (no code) 23 - 29 mmol/L 05-03-2017 N ot Available 09: (04607) Creatinine 0.74 mg/dL (no code) 05-03-2017 Not Available [Mass/Vol] 09: (41854) GFR/1.73 sq M 121 (no code) 90 - 120 05-03-2017 Not Avai lable predicted among mL/min/{1.73_m2} mL/min/{1.73_m2} 09: (42212) blacks MDRD (S/P/Bld) [Vol rate/Area] GFR/1.73 sq M 105 (no code) 90 - 120 05-03-2017 Not Avai lable predicted among mL/min/{1.73_m2} mL/min/{1.73_m2} 09: (60172) non-blacks MDRD (S/P/Bld) [Vol rate/Area] Glucose 90 mg/dL (no code) 60 - 125 mg/dL 05-03-2017 Not Johanna ilable [Mass/Vol] 09: (74246) Potassium 4.7 mmol/L (no code) 3.7 - 5.2 mmol/L 05-03-2017 Not Available [Moles/Vol] 09: (42436) Protein 7.3 g/dL (no code) 6.4 - 8.3 g/dL 05-03-2017 Not Johanna ilable [Mass/Vol] 09: (47148) Sodium 141 mmol/L (no code) 135 - 145 mmol/L 05-03-2017 Not Available [Moles/Vol] 09: (15988) Urea nitrogen 15 mg/dL (no code) 7 - 20 mg/dL 05-03-2017 Not A vailable [Mass/Vol] 09: (44690) Urea 20 mg/mg (no code) 6 - 22 mg/mg 05-03-2017 Not Avail able nitrogen/Creatin : (49831) ine [Mass ratio] hematology on 2017-05-03 Basophils (Bld) 0.1 10*3/uL (no code) 0 - 0.3 10*3/uL 05-03-2017 Not Available [#/Vol] 08: (79238) Basophils/100 0 % (no code) 0.5 - 1 % 05-03-2017 Not Avai lable WBC (Bld) 08: (07295) Eosinophils 0.2 10*3/uL (no code) 0.05 - 0.5 05-03-2017 Not Johanna ilable (Bld) [#/Vol] 10*3/uL 08: (92903) Eosinophils/100 1 % (no code) 1 - 4 % 05-03-2017 Not Av ailable WBC (Bld) 08: (34267) Hematocrit (Bld) 44.8 % (no code) 36.1 - 50.3 % 05-03-2017 N ot Available [Volume 08: (89365) fraction] Hemoglobin (Bld) 14.7 g/dL (no code) 12.1 - 17.2 g/dL 05-03-2017 Not Available [Mass/Vol] 08: (55889) Lymphocytes 2.9 10*3/uL (no code) 0.9 - 2.9 05-03-2017 Not Avai lable (Bld) [#/Vol] 10*3/uL 08: (80201) Lymphocytes/100 21 % (no code) 20 - 40 % 05-03-2017 Not Av ailable WBC (Bld) 08: (48831) MCH (RBC) 28.5 pg (no code) 27 - 31 pg 05-03-2017 Not Availab le [Entitic mass] 08: (60221) MCV (RBC) 87 fL (no code) 80 - 100 fL 05-03-2017 Not Availa ble [Entitic vol] 08: (48926) Monocytes (Bld) 1.0 10*3/uL (H) 0.3 - 0.9 05-03-2017 Not Available [#/Vol] 10*3/uL 08: (55325) Monocytes/100 7 % (no code) 2 - 8 % 05-03-2017 Not Avai lable WBC (Bld) 08:0 (04831) Neutrophils 9.9 10*3/uL (H) 1.7 - 7 10*3/uL 05-03-2017 No t Available (Bld) [#/Vol] 08:0 (96725) Neutrophils/100 70 % (no code) 40 - 60 % 05-03-2017 Not Av ailable WBC (Bld) 08:0 (82260) Platelets (Bld) 278 10*3/uL (no code) 150 - 450 05-03-2017 Not Available [#/Vol] 10*3/uL 08:060400 (08327) RBC (Bld) 5.16 10*6/uL (no code) 4.2 - 6.1 05-03-2017 Not Avail able [#/Vol] 10*6/uL 08: (39516) WBC (Bld) 14.1 10*3/uL (H) 3.5 - 10.5 05-03-2017 Not Avai lable [#/Vol] 10*3/uL 08: (31463) cardiac on 2017-05-03 Cholesterol 188 mg/dL (no code) 180 - 200 mg/dL 05-03-2017 Not Available [Mass/Vol] : (56139) Cholesterol in 45 mg/dL (no code) 05-03-2017 Not Availab le HDL [Mass/Vol] 09: (28427) Cholesterol in 126 mg/dL (H) 0 - 100 mg/dL 05-03-2017 Not Available LDL [Mass/Vol] : (58554) Triglyceride 87 mg/dL (no code) 0 - 150 mg/dL 05-03-2017 Not A vailable [Mass/Vol] : (83497) Vital Signs Vital Sign Value Interpretation Reference Date Time Care Prov ider Facility (Normalized) (Normalized) Range BMI (Body Mass 35 kg/m2 (no code) 15 - 25 kg/m2 08-20-2018 KIMANI POLLACK Community Index) 15:40-[address] [place] [address] (43489) Body height 162.56 cm (no code) cm 07-28-2014 [facility] 12:45-[address] [place] [address] (10382) Body height 162.56 cm (no code) cm 05-28-2014 [facility] 15:34-0400 [address] [facility] (75364) Body 97.9 [degF] (no code) 97.8 - 99.0 08-20-2018 KIMANI ELIZABETH [facility] Temperature [degF] 15:40-[address] [place] [address] (61561) Body 97.1 [degF] (no code) 97.8 - 99.0 07-28-2014 [facility] temperature [degF] 12:45-0400 [address] [facility] (52952) Body 98.5 [degF] (no code) 97.8 - 99.0 05-28-2014 DEION BARKER [facility] temperature [degF] 15:34-0400 [address] [facility] (28478) Body 97.9 [degF] (no code) 97.8 - 99.0 05-14-2014 NOVA [facility] Temperature [degF] 18:58-[address] [place] [address] (23845) Body 97.1 [degF] (no code) 97.8 - 99.0 05-07-2014 [facility] Temperature [degF] 17:51-[id number] [place], [place] [address]e r [facility] (77261) Body weight 117.2 kg (no code) kg 07-28-2014 [facility] 12:45-[address] [place] [address] (17154) Body weight 115.58 kg (no code) kg 05-28-2014 [facility] 15:34-0400 [address] [facility] (96832) Body weight 115.49 kg (no code) kg 05-14-2014 NOVA [facility] 18:58-[address] [place] [address] (11679) Body weight 115.94 kg (no code) kg 05-07-2014 [facility] 17:51-[address] [place] [address] (33871) Height 162.56 cm (no code) cm 08-20-2018 KIMANI POLLACK [facility] 15:40-[id number] [place] [address] (64334) Height 162.56 cm (no code) cm 05-14-2014 NOVA Commu nity 18:58-[address] [place] [address] (73760) Height 162.56 cm (no code) cm 05-07-2014 JEANETTE zDarrynCount includes the [facility] 17:51-[id number] [place] [address] (52806) Weight 92.49 kg (no code) kg 08-20-2018 [facility] 15:40-[id number] [place], [place] [address]s ([id number]) Interventions No Information Plan of Treatment Normalized Care Care Detail Care Activity Date Care Provider F acility Activity no information no information no information KIMANI POLLACK [phone] [facility] (70892) Goals No Information Social History No Information Functional Status The data below is from unstructured sourcesNo functional status results.No functional status results.No functional status results.No functional status results.No functional status results.No functional status results.No functional status results.No functional status information avai lable.No functional status information available. Mental Status No Information Encounters Encounter Normalized Encounter Encounter Diagnosis Care Provi jason Organization Date Type 08-20-2018 (SD) Same Day Radiculopathy, lumbar KIMANI POLLACK ( no [facility] - region phone) (no phone) 08-20-2018 - 08-20-2018 08-19-2018 Emergency department no information RAFFI Tatum APRN BA ADAM no organization name - patient visit Work Phone: 08-19-2018 09-10-2018 Patient encounter no information no name no or ganization name 08-19-2018 Patient encounter no information no name no or ganization name 05-24-2018 Patient encounter no information no name no or ganization name - 05-24-2018 04-04-2018 Patient encounter no information no name no or ganization name 01-01-2018 Patient encounter no information no name no or ganization name 08-16-2016 Patient encounter no information no name no or ganization name 06-14-2016 Patient encounter no information no name no or ganization name - 06-14-2016 12-24-2015 Patient encounter no information no name no or ganization name 02-07-2019 Telephone encounter no information KIMANI POLLACK (n o [facility] - phone) (no phone) 02-07-2019 - 02-07-2019 01-01-2019 Telephone encounter no information KIMANI POLLACK (n o [facility] - phone) (no phone) 01-01-2019 - 01-01-2019 09-12-2018 Telephone encounter Intervertebral disc KIMANI CAMPBELL (no [facility] - disorders with phone) (no phone) 09-12-2018 radiculopathy, lumbar - region 09-12-2018 08-20-2018 Telephone encounter no information KIMANI POLLACK (n o [facility] - phone) (no phone) 08-20-2018 - 08-20-2018 no information Encounter for general no name no organ ization name adult medical examination without abnormal findings no information Encounter for dental no name no organi zation name examination and cleaning without abnormal findings no information Encounter for no name no organization name gynecological examination (general) (routine) without abnormal findings no information Routine gynecological no name no organ ization name examination Medical Equipment No Information Payers No Information History general Narrative - Reported Note Type Note Facility History general Narrative - Reported Type Medical abnormal liver function adam ts History Medical back pain History Medical degenerative disease lumbos acral spine History Medical depression History Medical past drug addiction History Surgical right shoulder arthroscopy 2005 History Surgical right carpal tunnel release History Surgical tonsillectomy and adenoidectomy 1993 History Surgical section 2005 History Surgical Back Surgery. 2009- Ortho [facility] 2010 and 2011- [facility] 06/2010, History 01/2011, 01/2012 Surgical Right knee scope 10/24/2016 History Hospitaliz Surgery(s)/Childbirth(s) on ly ation History Hospitaliz CHF/ Pneumonia- Post Delive ry of Child ation History Hospitaliz Pain r/t back surgery- hosp italized for pain control x3 ation History Hospitaliz ACT detox in [place] 02/2016 ation History Hospitaliz MSSA after 3rd back surgery ation History [facility] (23833) Summary Purpose eClinicalWorks SubmissioneClinicalWorks SubmissioneClinicalWorks SubmissioneClinicalWorks SubmissioneClinicalWorks SubmissioneClinicalWorks SubmissioneClinicalWorks SubmissioneClinicalWorks Submission Advance Directives Directive Response Recor ded Date/Time Advance Directives No 9:05am Organ Donor No 11/25/15 9:05am Directive Response Recor ded Date/Time Advance Directives No 9:05am Organ Donor No 11/25/15 9:05am Resuscitation Status Full Code 11/25/15 9:05am Directive Response Recor ded Date/Time Advance Directives No 4:35pm Organ Donor No 09/22/15 4:35pm Resuscitation Status Full Code 09/22/15 4:35pm Directive Response Recor ded Date/Time Advance Directives No 12:35pm Organ Donor Yes 10/02/14 12:35pm Resuscitation Status Full Code 10/02/14 12:35pm Directive Response Recor ded Date/Time Advance Directives No 2:57pm Organ Donor No 11/25/15 9:05am Resuscitation Status Full Code 08/19/18 2:57pm Discharge Instructions No hospital discharge instructions.No hospital discharge instructions.No hospital discharge instructions.No hospital discharge instructions.No hospital discharge instruction information available. Chief Complaint and Reason for Visit Chief Complaint Back Problems Reason for Visit Chronic low back pa in Additional Source Comments This clinical document has been generated using [employer] software that has been certified by the Office of the National Coordinator for Health Information Technology (ONC 15.99.04.3023.Diam.31.00.0.289841) and the National Committee for Breast Puller (NCQA, as an eMeasure certified technology). FOR RECORDS PERTAINING TO PATIENTS WHO ARE OR HAVE BEEN ENROLLED IN A CHEMICAL D EPENDENCY/SUBSTANCE ABUSE PROGRAM, SOME INFORMATION MAY BE OMITTED. This clinica l summary was aggregated from multiple sources. Caution should be exercised in using it in the provision of clinical care. This summary normalizes information from multiple sources, and as a consequence, information in this document may ma terially change the coding, format and clinical context of patient data. In awilda tion, data may be omitted in some cases. CLINICAL DECISIONS SHOULD BE BASED ON T HE PRIMARY CLINICAL RECORDS. [employer] provides no warranty or guara ntee of the accuracy or completeness of information in this document.The followi ng information is based on time limited clinical information UNRECOGNIZED CONTENT PROVIDED BELOW FOR UNRECOGNIZED SECTION MEDICAL (GENERAL) HISTORY Type Description Date Medical History abnormal liver funct ion tests Medical History back pain Medical History degenerative disease lumbosacral spine Medical History depression Medical History past drug addiction Surgical History right shoulder arthroscop y 2006 Surgical History right carpal tunnel release Surgical History tonsillectomy and a denoidectomy 1993 Surgical History section 2005 Surgical History Back Surgery. 2009- [facility]/ 2010 and 2011- [facility] 06/2010, 01/2011, 01/2012 Surgical History Right knee scope 10/24/2016 Hospitalization History Surgery(s)/C hildbirth(s) only Hospitalization History CHF/ Pneumon ia- Post Delivery of Child Hospitalization History Pain r/t marisela k surgery- hospitalized for pain control Hospitalization History ACT detox in [facility] d 02/2016 Hospitalization History [facility] after 3 rd back surgery Type Description Date Medical History abnormal liver funct ion tests Medical History back pain Medical History degenerative disease lumbosacral spine Medical History depression Medical History past drug addiction Surgical History right shoulder arthroscop y 2006 Surgical History right carpal tunnel release Surgical History tonsillectomy and a denoidectomy 1993 Surgical History section 2005 Surgical History Back Surgery. 2009- [facility] / 2010 and 2011- [facility] 06/2010, 01/2011, 01/2012 Surgical History Right knee scope 10/24/2016 Hospitalization History Surgery(s)/C hildbirth(s) only Hospitalization History CHF/ Pneumon ia- Post Delivery of Child Hospitalization History Pain r/t marisela k surgery- hospitalized for pain control x3 Hospitalization History ACT detox in [facility] d 02/2016 Hospitalization History [facility] after 3 rd back surgery UNRECOGNIZED CONTENT PROVIDED BELOW FOR UNRECOGNIZED SECTION REASON FOR VISIT Back pain hurt 3-4 weeks ago Pipe LEDBETTER, went to ER sunday08/19/18 got 2 shots - Pipe Mcdaniel Authorization [id number] question
--- OUTSIDE RECORDS SUMMARY | 2020-05-09 10:28 | XMS REPORT | Encounter Summary ---
Author Author [facility] Organization [facility] Address Unknown Phone Unavailable Care Team Providers Care Sander Wooden Pencils Name Role Phone PCP Unavailable Encounter Details Care Team Description Date Type Department Mulugeta Alejandar MD [address] [place] [address] [phone] 01/15/2003 Hist-Appointmen [facility] t Social [...]
--- OUTSIDE RECORDS SUMMARY | 2020-05-09 10:28 | XMS REPORT | Encounter Summary ---
Author Author [facility] Organization [facility] Address Unknown Phone Unavailable Care Team Providers Care Heart Doctor Name Role Phone PCP Unavailable Encounter Details Care Team Description Date Type Department Jagjit Saenz MD No Forwarding Address 01/31/2006 [facility] Visit Social History Date Tobacco Use Types Packs/Day [...]
--- OUTSIDE RECORDS SUMMARY | 2020-05-09 10:28 | XMS REPORT | Encounter Summary ---
Author Author [facility] Organization [facility] Address Unknown Phone Unavailable Care Team Providers Care Chief Pharmacist Name Role Phone PCP Unavailable Encounter Details Care Team Description Date Type Department [facility] Provider, MD Thomas 01/21/2003 [facility] Social History Date Tobacco Use Types Packs/Day [...] Procedure Name Priority Date/Time Associated Diag nosis ECHO EJECTION FRACTION Routine 01/21/2003 HISTORICAL 2:04 PM CHEMIST PHYSICAL documented in this encounter Results * Echo Ejection Fraction historical (01/21/2003 2:04 PM CHEMIST PHYSICAL) Ejection 60Comment: Echo PROSOLV Fraction Specimen Performing Organization Address City/State/Zipcosc Ph one Number PROSOLV documented in this encounter Visit Diagnoses Not on filedocumented in this encounter
--- OUTSIDE RECORDS SUMMARY | 2020-05-09 10:28 | XMS REPORT | Encounter Summary ---
Author Author [facility] Organization [facility] Address Unknown Phone Unavailable Care Team Providers Care Journeyman Wireman Name Role Phone PCP Unavailable Encounter Details Care Team Description Date Type Department [facility] Provider, MD Thomas 01/21/2003 [facility] Result Social History Date Tobacco Use Types Packs/Day [...] Name Priority Date/Time Associated Diag nosis ECHO HISTORICAL Routine 01/21/2003 documented in this encounter Results * Echo historical (01/21/2003) Specimen Narrative Performed At Procedure Category: ECHO NEXTGEN Procedure: Echocardiogram Procedure Summary: 1. Normal left ana tricular systolic function, with an estimated ejection fraction of 60%. 2. Mild pulmonic stenosis with peak g radient= 13mmHg. Procedure Note Interface, Rad Conversion - 06/16/2015 8:00 PM CDT Procedure Category: ECHO Procedure: Echocardiogram Procedure Summary: 1. Normal left ventricular systolic function, with an estimated ejection fraction of 60%. 2. Mild pulmonic stenosis with peak gra dient= 13mmHg. Performing Organization Address City/State/Zipcode Ph one Number NEXTGEN documented in this encounter Visit Diagnoses Not on filedocumented in this encounter
--- OUTSIDE RECORDS SUMMARY | 2020-05-09 10:28 | XMS REPORT | Encounter Summary ---
Author Author [facility] Organization [facility] Address Unknown Phone Unavailable Care Team Providers Care Hold Worker Name Role Phone PCP Unavailable Encounter Details Care Team Description Date Type Department Mulugeta Alejandra MD [address] [place] [address] [phone] 02/02/2003 Hist-Appointmen [facility] t Social [...]
--- OUTSIDE RECORDS SUMMARY | 2020-05-09 10:28 | XMS REPORT | Clinical Summary ---
Author Author [facility] Organization [facility] Address Unknown Phone Unavailable Care Team Providers Care Business Technology Analyst Name Role Phone PCP Unavailable Allergies Not on File Medications Not on file Active Problems Not on file Social History Date Tobacco Use Types Packs/Day Years Used Never Assessed Sex Assigned at Date Recorded Not on file Industry Job Start Date Occupation Not on file Not on file Not on file Travel End Travel History Travel Start No recent travel history available. Last Filed Vital Signs Not on file Plan of Treatment Not on file Results Not on filefrom Last 3 Months
--- OUTSIDE RECORDS SUMMARY | 2020-05-09 10:28 | XMS REPORT | Encounter Summary ---
Author Author [facility] Organization [facility] Address Unknown Phone Unavailable Care Team Providers Care Sustainability Communicator Name Role Phone PCP Unavailable Encounter Details Care Team Description Date Type Department Mulugeta Alejandra MD [address] [place] [address] [phone] 05/25/2004 [facility] Social History Date Tobacco Use Types Packs/Day [...]
--- OUTSIDE RECORDS SUMMARY | 2020-05-09 10:28 | XMS REPORT | Encounter Summary ---
Author Author [facility] Address Unknown Phone Unavailable Care Team Providers Care Hadoop Admin Name Role Phone PCP Unavailable Encounter Details Care Team Description Date Type Department Mulugeta Alejandra MD [address] [place] [address] [phone] [facility] [address] [place], [place] [id number] Social History Date Tobacco Use Types Packs/Day [...] Date/Time Associated Diag nosis TOTAL THYROXINE Routine 10/16/2001 8:05 PM AUTOMATION SALES MANAGER THYROID STIMULATING Routine 10/16/2001 HORMONE 8:05 PM AUTOMATION SALES MANAGER documented in this encounter Results * Total Thyroxine (10/16/2001 8:05 PM AUTOMATION SALES MANAGER) Total Thyroxine 10.6 4.5 - 12.0 UG/DL SUNQUEST Specimen Blood Performing Organization Address [facility] Ph one Number [facility] [address] [place], [place] [address] SUNQUEST * Thyroid Stimulating Hormone (10/16/2001 8:05 PM AUTOMATION SALES MANAGER) Thyroid 1.20 0.50 - 5.00 UIU/ML SUNQUEST Stimulating Hormone Specimen Blood Performing Organization Address [facility] Ph one Number [facility] [address] [place], [place] [address] SUNQUEST documented in this encounter Visit Diagnoses Not on filedocumented in this encounter
--- OUTSIDE RECORDS SUMMARY | 2020-05-09 10:29 | XMS REPORT ---
Author Author Larissa Jeronimo Organization [facility] Address [address] [place] [address] Care Team Providers Care Director Building Name Role Phone JEANETTE Jeronimo Unavailable PROBLEMS Type Condition ICD9-CM Code [id number] Code Onset Dates Condition S tatus SNOMED Code Problem H/O bursectomy Z98.890 Active 63106 5003 Problem Substance abuse F19.10 Active 6621 4007 Problem Tobacco abuse Z72.0 Active 590017 05 Problem Onychomycosis B35.1 Active 793606 008 Problem PCOS (polycystic ovarian syndrome) E28.2 Active 75475340 Problem PMS (premenstrual syndrome) N94.3 Ac tive 28619477 Problem Pre-diabetes R73.09 Active 9517477 Problem BMI 40.0-44.9, adult Z68.41 Active 290079389 Problem Reactive depression F32.9 Active 69422360 Problem Cannabis use disorder, severe, dependence F12.20 Active 37649306 Problem Methamphetamine use F15.10 Active 632348949 Problem Lumbar radiculopathy M54.16 Active 917404197 Problem Lumbar disc disease with radiculopathy M51.16 Active 036271320 Problem Anxiety F41.9 Active 54994139 Problem Substance induced mood disorder F19.94 Active 992408558 Problem Methamphetamine use disorder, severe, 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 [address] [facility] [place] [address] Jan, [facility] [address] [facility] [place] [address] Dec, [facility] [address] [address] Aug, Lumbar disc disease with radiculopathy M 51.16 [place] [address] [address] Jul, [place] [address] [address] Jul, Lumbar radiculopathy M54.[address] [address] March, Lumbar radiculopathy M54.16 and Pre-diab etes R73.09 [facility] [address] [place], [place] [id number] [address] [place] [address] Jan, Epigastric pain R10.13 and M ethamphetamine use F15.[address] [address] Dec, Methamphetamine use disorder, severe, 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 ; Opioid use disorder, severe, in sustained remission F11.21 ; Tobacco use disorder, moderate, dependence F17.200 ; Cannabis use disorder, severe, dependence F12.20 and Substance induced mood disorder F19.[address] [address] Nov, BMI 40.0-44.9, adult Z68.41 ; Lumbar rad iculopathy M54.16 and Reactive depression F32.[address] [address] Sep, Strain of lumbar region, initial encount er S39.012A and BMI 40.0-44.9, adult Z68.41 [facility] [address] [place], [place] [id number] [address] [place] [address] Sep, Acute left-sided low back pa in with left-sided sciatica M54.[address] [address] Sep, [address] [address] 07 Sep, 2017 Lumbago M54.[address] [facility] [address] [address] Jul, Tobacco abuse Z72.0 ; Anxiety F41.9 and Bilateral thoracic back pain M54.6 [facility] [address] [address] Jul, [facility] [address] [address] Jun, Lumbago M54.5 [place] [address] [address] 07 Apr, 2017 Annual physical exam Z00.00 ; Morbid obe sity E66.01 ; Lumbago M54.5 ; History of back surgery Z98.89 ; Pre-diabetes R73.09 ; PCOS (polycystic ovarian syndrome) E28.2 and Bilateral thoracic back pain M54.6 [facility] [address] [address] Apr, [facility] [address] [address] Jan, Annual physical exam Z00.00 ; PCOS (poly cystic ovarian syndrome) E28.2 ; Substance abuse F19.10 and Pre-diabetes R73.09 [facility] [address] [facility] [id number] [place] [address] Nov, Acute non-recurrent pansinus itis J01.40 [facility] [address] [address] Jul, [facility] [address] [address] Jul, [facility] [address] [address] Jul, Medial meniscus tear, right, subsequent encounter S83.241D [facility] [address] [id number] Jun, Dental examination Z01.20 [facility] [address] [id number] Jun, Dental examination Z01.20 [facility] [address] [address] May, Chondromalacia patellae, right knee M22. 41 [place] [address] [address] May, Bilateral thoracic back pain M54.6 ; Sub stance abuse F19.10 and Tobacco abuse Z72.0 [place] [address] [address] Apr, Bilateral low back pain with sciatica, s ciatica laterality unspecified M54.40 [place] [address] [address] Apr, Bilateral low back pain with sciatica, s ciatica laterality unspecified M54.40 [place] [address] [address] Apr, Acute right-sided low back pain with rig ht-sided sciatica M54.41 [place] [address] [address] Apr, PMS (premenstrual syndrome) N94.3 ; Toba financial analyst accountant abuse counseling Z71.6 and Right knee pain, unspecified chronicity M25.561 [place] [address] [address] March, Well woman exam Z01.419 [place] [address] [address] Feb, Methamphetamine addiction F15.20 and Fol liculitis L73.9 [place] [address] [address] Feb, [place] [address] [address] Jan, Well woman exam Z01.419 ; Routine gyneco logical examination V72.31 and Substance abuse F19.10 [facility] [address] [place] [id number] [address] [address] Jan, Sore throat J02.9 and Acute bronchitis J20.9 [facility] [address] [facility] [place] [id number] Jan, Dental caries K02.9 [facility] [address] [place] [id number] [place] [address] Jan, Morbid obesity E66.01 ; Pre-diabetes R73 .09 and Onychomycosis B35.1 [facility] [address] [place] [id number] [address] [address] Jan, Immunization due Z23 [facility] [address] [facility] [place] [id number] 15 Jan, 2016 Encounter for dental examination Z01.20 [facility] [address] [address] 12 Dec, 2015 Sinusitis, acute maxillary J01.00 [place] [address] [address] Nov, [facility] [address] [address] Nov, [facility] [address] [address] Nov, [facility] [address] [address] Nov, [facility] [address] [address] Nov, Bilateral low back pain with sciatica, s ciatica laterality unspecified M54.40 ; History of back surgery Z98.89 ; Radiculopathy, thoracic region M54.14 ; Radiculopathy of lumbosacral region M54.17 and Bilateral thoracic back pain M54.6 [place] [address] [address] 19 Nov, 2015 Morbid obesity E66.01 and General medica l exam Z00.00 [facility] [address] [address] 19 Nov, 2015 Morbid obesity E66.01 and General medica l exam Z00.00 [facility] [address] [address] 12 Nov, 2015 General medical exam Z00.00 ; Lumbago M5 4.5 ; History of back surgery Z98.89 ; Bilateral low back pain with sciatica, sciatica laterality unspecified M54.40 ; Radiculopathy, thoracic region M54.14 ; Radiculopathy of lumbosacral region M54.17 and Bilateral thoracic back pain M54.6 [facility] [address] [address] 12 Nov, 2015 General medical exam Z00.00 ; Morbid obe sity E66.01 ; Substance abuse F19.10 ; Tobacco abuse Z72.0 ; Tobacco abuse counseling Z71.6 ; Lumbago M54.5 ; History of back surgery Z98.89 and Right upper quadrant pain R10.11 [place] [address] [address] 14 Feb, 2015 [facility] [address] [address] Feb, [facility] [address] [address] Jan, [facility] [address] [address] Jan, [facility] [address] [address] Jan, [facility] [address] [address] Jan, [facility] [address] [address] Oct, [facility] [address] [id number] [place] [address] Oct, [facility] [address] [id number] [place] [address] Sep, [facility] [address] [id number] [place] [address] Sep, [facility] [address] [id number] [place] [address] Jul, [facility] [address] [id number] [place] [address] Jul, [facility] [address] [id number] [place] [address] May, [facility] [address] [id number] [place] [address] May, [facility] [address] [id number] [place] [address] May, [facility] [address] [id number] [place] [address] May, [facility] [address] [id number] [place] [address] Apr, [facility] [address] [id number] [place] [address] Apr, [facility] [address] [id number] [place] [address] Apr, [facility] [address] [id number] [place] [address] Apr, [facility] [address] [id number] [place] [address] Apr, [facility] [address] [id number] [place] [address] Apr, [facility] [address] [id number] [place] [address] 18 Apr, 2014 [facility] [address] [id number] [place] [address] Apr, [facility] [address] [facility] [place] [address] Apr, [facility] [address] [id number] [place] [address] Apr, [facility] [address] [facility] [place] [address] Apr, [facility] [address] [id number] [place] [address] Apr, IMMUNIZATIONS No Known Immunizations SOCIAL HISTORY Never Assessed REASON FOR VISIT PLAN OF CARE VITAL SIGNS MEDICATIONS Unknown [...] 2005 Surgical History Back Surgery. 2009- [facility] 2010 and 2011- [facility] 06/2010, 01/2011, 01/2012 Surgical History Right knee scope 10/24/2016 Hospitalization History Surgery(s)/Childbirth(s) only Hospitalization History CHF/ Pneumonia- Post Delivery of Chi ld Hospitalization History Pain r/t back surgery- hospitalized for pain control x3 Hospitalization History [facility] detox in [place] 02/2016 Hospitalization History [facility] after 3rd back surgery
--- OUTSIDE RECORDS SUMMARY | 2020-05-09 10:29 | XMS REPORT ---
Author Author Larissa OVIEDO Organization [facility] Address [address] [place] [address] Care Team Providers Care Surgical Instrument Repair Specialist Name Role Phone NOVA OVIEDO Unavailable PROBLEMS Type Condition ICD9-CM Code [id number] Code Onset Dates Condition S tatus SNOMED Code Problem H/O bursectomy Z98.890 Active 64648 5003 Problem Substance abuse F19.10 Active 6621 4007 Problem Tobacco abuse Z72.0 Active 948378 05 Problem Onychomycosis B35.1 Active 097100 008 Problem PCOS (polycystic ovarian syndrome) E28.2 Active 27348556 Problem PMS (premenstrual syndrome) N94.3 Ac tive 12960073 Problem Pre-diabetes R73.09 Active 4724895 Problem BMI 40.0-44.9, adult Z68.41 Active 369688937 Problem Reactive depression F32.9 Active 42398046 Problem Cannabis use disorder, severe, dependence F12.20 Active 45966730 Problem Methamphetamine use F15.10 Active 318716446 Problem Lumbar radiculopathy M54.16 Active 681791398 Problem Lumbar disc disease with radiculopathy M51.16 Active 392279007 Problem Anxiety F41.9 Active 50102062 Problem Substance induced mood disorder F19.94 Active 217619243 Problem Methamphetamine use disorder, severe, 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 Active 79569438 Problem Tobacco use disorder, moderate, dependence F17.200 Active 80625076 Problem Opioid use disorder, severe, in sustained remission F11.21 Active 68923109 ALLERGIES No Information ENCOUNTERS Encounter Location Date Diagnosis [facility] [address] [facility] [place] [address] Jan, [facility] [address] [facility] [place] [address] Dec, [facility] [address] [address] Aug, Lumbar disc disease with radiculopathy M 51.16 [place] [address] [address] Jul, [place] [address] [address] Jul, Lumbar radiculopathy M54.16 [place] [address] [address] March, Lumbar radiculopathy M54.16 and Pre-diab etes R73.09 [facility] [address] [place] [id number] [address] [place] [address] Jan, Epigastric pain R10.13 and M ethamphetamine use F15.[address] [address] Dec, Methamphetamine use disorder, severe, 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 ; Opioid use disorder, severe, in sustained remission F11.21 ; Tobacco use disorder, moderate, dependence F17.200 ; Cannabis use disorder, severe, dependence F12.20 and Substance induced mood disorder F19.[address] [address] Nov, BMI 40.0-44.9, adult Z68.41 ; Lumbar rad iculopathy M54.16 and Reactive depression F32.[address] [address] Sep, Strain of lumbar region, initial encount er S39.012A and BMI 40.0-44.9, adult Z68.41 [facility] [address] [place], [place] [id number] [address] [place] [address] Sep, Acute left-sided low back pa in with left-sided sciatica M54.[address] [address] Sep, [place] [id number] [place] [address] 07 Sep, 2017 Lumbago M54.5 and Anxiety F41.9 [facility] [address] [address] 26 Jul, 2017 Tobacco abuse Z72.0 ; Anxiety F41.9 and Bilateral thoracic back pain M54.6 [place] [address] [address] Jul, [facility] [address] [address] Jun, Lumbago M54.5 [place] [address] [address] 07 Apr, 2017 Annual physical exam Z00.00 ; Morbid obe sity E66.01 ; Lumbago M54.5 ; History of back surgery Z98.89 ; Pre-diabetes R73.09 ; PCOS (polycystic ovarian syndrome) E28.2 and Bilateral thoracic back pain M54.6 [place] [address] [address] Apr, [place] [address] [address] Jan, Annual physical exam Z00.00 ; PCOS (poly cystic ovarian syndrome) E28.2 ; Substance abuse F19.10 and Pre-diabetes R73.09 [facility] [address] [facility] [id number] [place] [address] Nov, Acute non-recurrent pansinus itis J01.40 [facility] [address] [address] Jul, [facility] [address] [address] Jul, [facility] [address] [address] Jul, Medial meniscus tear, right, subsequent encounter S83.241D [facility] [address] [id number] Jun, Dental examination Z01.20 [facility] [address] [id number] Jun, Dental examination Z01.20 [facility] [address] [address] May, Chondromalacia patellae, right knee M22. 41 [place] [address] [address] May, Bilateral thoracic back pain M54.6 ; Sub stance abuse F19.10 and Tobacco abuse Z72.0 [place] [address] [address] Apr, Bilateral low back pain with sciatica, s ciatica laterality unspecified M54.40 [place] [address] [address] Apr, Bilateral low back pain with sciatica, s ciatica laterality unspecified M54.40 [place] [address] [address] Apr, Acute right-sided low back pain with rig ht-sided sciatica M54.41 [place] [address] [address] Apr, PMS (premenstrual syndrome) N94.3 ; 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 and Right knee pain, unspecified chronicity M25.561 [place] [address] [address] March, Well woman exam Z01.419 [place] [address] [address] Feb, Methamphetamine addiction F15.20 and Fol liculitis L73.9 [place] [address] [address] Feb, [place] [address] [address] Jan, Well woman exam Z01.419 ; Routine gyneco logical examination V72.31 and Substance abuse F19.10 [facility] [address] [place] [id number] [address] Jan, Sore throat J02.9 and Acute bronchitis J20.9 [facility] [address] [facility] [place] [id number] Jan, Dental caries K02.9 [facility] [address] [place] [id number] [place] [address] Jan, Morbid obesity E66.01 ; Pre-diabetes R73 .09 and Onychomycosis B35.1 [facility] [address] [place] [id number] [place] [address] Jan, Immunization due Z23 [facility] [address] [facility] [place] [id number] Jan, Encounter for dental examination Z01.20 [facility] [address] [address] 12 Dec, 2015 Sinusitis, acute maxillary J01.00 [facility] [address] [address] Nov, [facility] [address] [address] Nov, [facility] [address] [address] Nov, [facility] [address] [address] Nov, [facility] [address] [address] Nov, Bilateral low back pain with sciatica, s ciatica laterality unspecified M54.40 ; History of back surgery Z98.89 ; Radiculopathy, thoracic region M54.14 ; Radiculopathy of lumbosacral region M54.17 and Bilateral thoracic back pain M54.6 [facility] [address] [address] 19 Nov, 2015 Morbid obesity E66.01 and General medica l exam Z00.00 [facility] [address] [address] Nov, Morbid obesity E66.01 and General medica l exam Z00.00 [facility] [address] [address] 12 Nov, 2015 General medical exam Z00.00 ; Lumbago M5 4.5 ; History of back surgery Z98.89 ; Bilateral low back pain with sciatica, sciatica laterality unspecified M54.40 ; Radiculopathy, thoracic region M54.14 ; Radiculopathy of lumbosacral region M54.17 and Bilateral thoracic back pain M54.6 [facility] [address] [address] Nov, General medical exam Z00.00 ; Morbid obe sity E66.01 ; Substance abuse F19.10 ; Tobacco abuse Z72.0 ; Tobacco abuse counseling Z71.6 ; Lumbago M54.5 ; History of back surgery Z98.89 and Right upper quadrant pain R10.11 [facility] [address] [address] 14 Feb, 2015 [facility] [address] [address] Feb, [facility] [address] [address] Jan, [facility] [address] [address] Jan, [facility] [address] [address] Jan, [facility] [address] [address] Jan, [facility] [address] [address] Oct, [facility] [place] [facility] [address] [id number] [place] [address] Oct, [facility] [place] [facility] [address] [id number] [place] [address] Sep, [facility] [place] [facility] [address] [id number] [place] [address] Sep, [facility] [place] [facility] [address] [id number] [place] [address] Jul, [facility] [place] [facility] [address] [id number] [place] [address] Jul, [facility] [place] [facility] [address] [id number] [place] [address] May, [facility] [place] [facility] [address] [id number] [place] [address] May, [facility] [place] [facility] [address] [id number] [place] [address] May, [facility] [place] [facility] [address] [id number] [place] [address] May, [facility] [place] [facility] [address] [id number] [place] [address] Apr, [facility] [place] [facility] [address] [id number] [place] [address] Apr, [facility] [place] [facility] [address] [id number] [place] [address] Apr, [facility] [place] [facility] [address] [id number] [place] [address] Apr, [facility] [place] [facility] [address] [id number] [place] [address] Apr, [facility] [place] [facility] [address] [id number] [place] [address] Apr, [facility] [place] [facility] [address] [id number] [place] [address] 18 Apr, 2014 [facility] [place] [facility] [address] [facility] [place] [address] 16 Apr, 2014 [facility] [address] [facility] [place] [address] Apr, [facility] [address] [facility] [place] [address] Apr, [facility] [address] [id number] [place] [address] Apr, [facility] [address] [id number] [place] [address] Apr, IMMUNIZATIONS No Known Immunizations SOCIAL HISTORY Never Assessed REASON FOR VISIT PLAN OF CARE VITAL SIGNS Height 64 in 2014-05-14 Weight 254.6 lbs 2014-05-14 Temperature 97.9 degrees Fahrenheit 2014-05-14 Heart Rate 84 bpm 2014-05-14 Respiratory Rate 16 2014-05-14 Blood pressure systolic 118 mmHg 2014-05-14 Blood pressure diastolic 80 mmHg 2014-05-14 MEDICATIONS Unknown Medications RESULTS No Results PROCEDURES [...] 2009- Ortho Fo ur 2010 and 2011- [facility] 06/2010, 01/2011, 01/2012 Surgical History Right knee scope 10/24/2016 Hospitalization History Surgery(s)/Childbirth(s) only Hospitalization History CHF/ Pneumonia- Post Delivery of Chi ld Hospitalization History Pain r/t back surgery- hospitalized for pain control x3 Hospitalization History [facility] in [place] 02/2016 Hospitalization History [facility] after 3rd back surgery
--- OUTSIDE RECORDS SUMMARY | 2020-05-09 10:29 | XMS REPORT ---
Author Author MANAN Larissaflorina ALBARRAN Organization [facility] Address [address] [place] [address] Care Team Providers Care Laminator Preforms Name Role Phone CAMILLA HINKLEY Unavailable PROBLEMS Type Condition ICD9-CM Code XQC42-SI Code Onset Dates Condition S tatus SNOMED Code Problem H/O bursectomy Z98.890 Active 61919 5003 Problem Substance abuse F19.10 Active 6621 4007 Problem Tobacco abuse Z72.0 Active 147353 05 Problem Onychomycosis B35.1 Active 647138 008 Problem PCOS (polycystic ovarian syndrome) E28.2 Active 40155586 Problem PMS (premenstrual syndrome) N94.3 Ac tive 17899384 Problem Pre-diabetes R73.09 Active 5191011 Problem BMI 40.0-44.9, adult Z68.41 Active 893676639 Problem Reactive depression F32.9 Active 18263538 Problem Cannabis use disorder, severe, dependence F12.20 Active 46757033 Problem Methamphetamine use F15.10 Active 544675338 Problem Lumbar radiculopathy M54.16 Active 327968438 Problem Lumbar disc disease with radiculopathy M51.16 Active 856330221 Problem Anxiety F41.9 Active 71182995 Problem Substance induced mood disorder F19.94 Active 902097208 Problem Methamphetamine use disorder, severe, 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 Active 20946119 Problem Tobacco use disorder, moderate, dependence F17.200 Active 98528009 Problem Opioid use disorder, severe, in sustained remission F11.21 Active 24707064 ALLERGIES No Information ENCOUNTERS Encounter Location Date Diagnosis [facility] [address] [facility] [place] [address] Jan, [facility] [address] [facility] [place] [address] Dec, [facility] [address] [address] Aug, Lumbar disc disease with radiculopathy M 51.16 [place] [address] [place] [address] Jul, [address] [address] Jul, Lumbar radiculopathy M54.[address] [address] March, Lumbar radiculopathy M54.16 and Pre-diab etes R73.09 [facility] [address] [place] [address] Jan, Epigastric pain R10.13 and M ethamphetamine use F15.[address] [address] Dec, Methamphetamine use disorder, severe, 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 ; Opioid use disorder, severe, in sustained remission F11.21 ; Tobacco use disorder, moderate, dependence F17.200 ; Cannabis use disorder, severe, dependence F12.20 and Substance induced mood disorder F19.[address] [address] Nov, BMI 40.0-44.9, adult Z68.41 ; Lumbar rad iculopathy M54.16 and Reactive depression F32.[address] [address] Sep, Strain of lumbar region, initial encount er S39.012A and BMI 40.0-44.9, adult Z68.41 [facility] [place] [id number] [place] [address] Sep, Acute left-sided low back pa in with left-sided sciatica M54.[address] [address] Sep, [address] [id number] [place] [address] 07 Sep, 2017 Lumbago M54.5 and Anxiety F41.9 [facility] [address] [address] 26 Jul, 2017 Tobacco abuse Z72.0 ; Anxiety F41.9 and Bilateral thoracic back pain M54.6 [place] [address] [address] Jul, [facility] [address] [address] Jun, Lumbago M54.5 [place] [address] [address] 07 Apr, 2017 Annual physical exam Z00.00 ; Morbid obe sity E66.01 ; Lumbago M54.5 ; History of back surgery Z98.89 ; Pre-diabetes R73.09 ; PCOS (polycystic ovarian syndrome) E28.2 and Bilateral thoracic back pain M54.6 [facility] [address] [address] Apr, [place] [address] [address] Jan, Annual physical exam Z00.00 ; PCOS (poly cystic ovarian syndrome) E28.2 ; Substance abuse F19.10 and Pre-diabetes R73.09 [facility] [address] [facility] [id number] [place] [address] Nov, Acute non-recurrent pansinus itis J01.40 [facility] [address] [address] Jul, [facility] [address] [address] Jul, [facility] [address] [address] Jul, Medial meniscus tear, right, subsequent encounter S83.241D [facility] [address] [id number] Jun, Dental examination Z01.20 [facility] [address] [id number] Jun, Dental examination Z01.20 [facility] [address] [address] May, Chondromalacia patellae, right knee M22. 41 [place] [address] [address] May, Bilateral thoracic back pain M54.6 ; Sub stance abuse F19.10 and Tobacco abuse Z72.0 [place] [address] [address] Apr, Bilateral low back pain with sciatica, s ciatica laterality unspecified M54.40 [place] [address] [address] Apr, Bilateral low back pain with sciatica, s ciatica laterality unspecified M54.40 [place] [address] [address] Apr, Acute right-sided low back pain with rig ht-sided sciatica M54.41 [place] [address] [address] Apr, PMS (premenstrual syndrome) N94.3 ; 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 and Right knee pain, unspecified chronicity M25.561 [place] [address] [address] March, Well woman exam Z01.419 [place] [address] [address] Feb, Methamphetamine addiction F15.20 and Fol liculitis L73.9 [place] [address] [address] Feb, [place] [address] [address] Jan, Well woman exam Z01.419 ; Routine gyneco logical examination V72.31 and Substance abuse F19.10 [facility] [address] [place] [id number] [place] [address] Jan, Sore throat J02.9 and Acute bronchitis J20.9 [facility] [address] [facility] [place] [id number] Jan, Dental caries K02.9 [facility] [address] [id number] [place] [address] Jan, Morbid obesity E66.01 ; Pre-diabetes R73 .09 and Onychomycosis B35.1 [facility] [address] [place] [id number] [place] [address] Jan, Immunization due Z23 [facility] [address] [facility] [place] [id number] Jan, Encounter for dental examination Z01.20 [facility] [address] [address] 12 Dec, 2015 Sinusitis, acute maxillary J01.00 [facility] [address] [address] Nov, [facility] [address] [address] Nov, [facility] [address] [address] Nov, [facility] [address] [address] Nov, [facility] [address] [address] Nov, Bilateral low back pain with sciatica, s ciatica laterality unspecified M54.40 ; History of back surgery Z98.89 ; Radiculopathy, thoracic region M54.14 ; Radiculopathy of lumbosacral region M54.17 and Bilateral thoracic back pain M54.6 [facility] [address] [address] 19 Nov, 2015 Morbid obesity E66.01 and General medica l exam Z00.00 [facility] [address] [address] 19 Nov, 2015 Morbid obesity E66.01 and General medica l exam Z00.00 [facility] [address] [address] 12 Nov, 2015 General medical exam Z00.00 ; Lumbago M5 4.5 ; History of back surgery Z98.89 ; Bilateral low back pain with sciatica, sciatica laterality unspecified M54.40 ; Radiculopathy, thoracic region M54.14 ; Radiculopathy of lumbosacral region M54.17 and Bilateral thoracic back pain M54.6 [facility] [address] [address] 12 Nov, 2015 General medical exam Z00.00 ; Morbid obe sity E66.01 ; Substance abuse F19.10 ; Tobacco abuse Z72.0 ; Tobacco abuse counseling Z71.6 ; Lumbago M54.5 ; History of back surgery Z98.89 and Right upper quadrant pain R10.11 [facility] [address] [address] 14 Feb, 2015 [facility] [address] [address] Feb, [facility] [address] [address] Jan, [facility] [address] [address] Jan, [facility] [address] [address] Jan, [facility] [address] [address] Jan, [facility] [address] [address] Oct, [facility] [place] [facility] [address] [facility] [place] [address] Oct, [facility] [place] [facility] [address] [facility] [place] [address] Sep, [facility] [place] [facility] [address] [facility] [place] [address] Sep, [facility] [place] [facility] [address] [facility] [place] [address] Jul, [facility] [place] [facility] [address] [facility] [place] [address] Jul, [facility] [place] [facility] [address] [facility] [place] [address] May, [facility] [place] [facility] [address] [id number] [place] [address] May, [facility] [place] [facility] [address] [id number] [place] [address] May, [facility] [place] [facility] [address] [facility] [place] [address] May, [facility] [place] [facility] [address] [id number] [place] [address] Apr, [facility] [place] [facility] [address] [id number] [place] [address] Apr, [facility] [place] [facility] [address] [facility] [place] [address] Apr, [facility] [place] [facility] [address] [id number] [place] [address] Apr, [facility] [place] [facility] [address] [id number] [place] [address] Apr, [facility] [place] [facility] [address] [id number] [place] [address] Apr, [facility] [place] [facility] [address] [id number] [place] [address] 18 Apr, 2014 [facility] [place] [facility] [address] [id number] [place] [address] 16 Apr, 2014 [facility] [address] [facility] [place] [address] Apr, [facility] [address] [facility] [place] [address] Apr, [facility] [address] [facility] [place] [address] Apr, [facility] [address] [facility] [place] [address] Apr, IMMUNIZATIONS No Known Immunizations SOCIAL HISTORY Never Assessed REASON FOR VISIT PLAN OF CARE VITAL SIGNS Height 64 in 2014-05-28 Weight 254.8 lbs 2014-05-28 Temperature 98.5 degrees Fahrenheit 2014-05-28 Heart Rate 78 bpm 2014-05-28 Respiratory Rate 16 2014-05-28 Blood pressure systolic 126 mmHg 2014-05-28 Blood pressure diastolic 82 mmHg 2014-05-28 MEDICATIONS Unknown Medications RESULTS No Results PROCEDURES Procedure Date Ordered Result Body Site URINE TEST May 28, 2014 BX/CURETT OF CERVIX W/SCOPE May 28, 2014 INSTRUCTIONS MEDICATIONS ADMINISTERED No Known Medications MEDICAL (GENERAL) HISTORY Type Description Date Medical History abnormal liver function tests Medical History back pain Medical History degenerative disease lumbosacral spine Medical History depression Medical History past drug addiction Surgical History right shoulder arthroscopy 2005 Surgical History right carpal tunnel release Surgical History tonsillectomy and adenoidectomy 1994 Surgical History section 2005 Surgical History Back Surgery. 2009- [facility] 2010 and 2011- [facility] 06/2010, 01/2011, 01/2012 Surgical History Right knee scope 10/24/2016 Hospitalization History Surgery(s)/Childbirth(s) only Hospitalization History CHF/ Pneumonia- Post Delivery of Chi ld Hospitalization History Pain r/t back surgery- hospitalized for pain control x3 Hospitalization History [facility] detox in [place] 02/2016 Hospitalization History [facility] after 3rd back surgery
--- OUTSIDE RECORDS SUMMARY | 2020-05-09 10:29 | XMS REPORT ---
Author Author Larissa Almeida Organization [facility] Address [address] [place] [address] Care Team Providers Care Oracle Etl Developer Name Role Phone FARHAD Almeida Unavailable PROBLEMS Type Condition ICD9-CM Code [id number] Code Onset Dates Condition S tatus SNOMED Code Problem H/O bursectomy Z98.890 Active 83745 5003 Problem Substance abuse F19.10 Active 6621 4007 Problem Tobacco abuse Z72.0 Active 647496 05 Problem Onychomycosis B35.1 Active 148095 008 Problem PCOS (polycystic ovarian syndrome) E28.2 Active 98722188 Problem PMS (premenstrual syndrome) N94.3 Ac tive 19914254 Problem Pre-diabetes R73.09 Active 6652609 Problem BMI 40.0-44.9, adult Z68.41 Active 493244699 Problem Reactive depression F32.9 Active 08881959 Problem Cannabis use disorder, severe, dependence F12.20 Active 76028198 Problem Methamphetamine use F15.10 Active 051665806 Problem Lumbar radiculopathy M54.16 Active 358747200 Problem Lumbar disc disease with radiculopathy M51.16 Active 793763796 Problem Anxiety F41.9 Active 10007225 Problem Substance induced mood disorder F19.94 Active 635913849 Problem Methamphetamine use disorder, severe, 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 Active 86295946 Problem Tobacco use disorder, moderate, dependence F17.200 Active 72565364 Problem Opioid use disorder, severe, in sustained remission F11.21 Active 27864510 ALLERGIES No Information ENCOUNTERS Encounter Location Date Diagnosis [facility] [address] [facility] [id number] [address] [place] [address] Jan, [facility] [address] [facility] [id number] [address] [place] [address] Dec, [place] [address] [id number] [place] [address] Aug, Lumbar disc disease with rad iculopathy M51.16 [place] [address] [address] Jul, [place] [address] [address] Jul, Lumbar radiculopathy M54.16 [place] [address] [address] March, Lumbar radiculopathy M54.16 and Pre-diabetes R73.09 [facility] [place] [address] [address] Jan, Epigastric pain R10.13 and M ethamphetamine use F15.10 [place] [address] [address] Dec, Methamphetamine use disorder , severe, 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 ; Opioid use disorder, severe, in sustained remission F11.21 ; Tobacco use disorder, moderate, dependence F17.200 ; Cannabis use disorder, severe, dependence F12.20 and Substance induced mood disorder F19.94 [place] [address] [address] [place] [id number] [place] [address] Nov, BMI 40.0-44.9, adult Z68.41 ; Lumbar radiculopathy M54.16 and Reactive depression F32.9 [place] [address] [place] [id number] [address] [place] [address] Sep, Strain of lumbar region, ini tial encounter S39.012A and BMI 40.0- 44.9, adult Z68.41 [facility] [address] [place] [id number] [place] [address] Sep, Acute left-sided low back pa in with left-sided sciatica M54.42 [place] [address] [place] [address] Sep, [facility] [address] [address] Sep, Lumbago M54.5 and Anxiety F4 1.9 [facility] [address] [place] [id number] [address] [place] [address] Jul, Tobacco abuse Z72.0 ; Anxiet y F41.9 and Bilateral thoracic back pain M54.6 [facility] [address] [address] Jul, [facility] [address] [address] Jun, Lumbago M54.5 [facility] [address] [address] Apr, Annual physical exam Z00.00 ; Morbid obesity E66.01 ; Lumbago M54.5 ; History of back surgery Z98.89 ; Pre-diabetes R73.09 ; PCOS (polycystic ovarian syndrome) E28.2 and Bilateral thoracic back pain M54.6 [facility] [address] [address] Apr, [facility] [address] [address] Jan, Annual physical exam Z00.00 ; PCOS (polycystic ovarian syndrome) E28.2 ; Substance abuse F19.10 and Pre-diabetes R73.09 [facility] [address] [place] [id number] [place] [address] Nov, Acute non-recurrent pansinus itis J01.40 [facility] [address] [place] [id number] [address] [place] [address] Jul, [facility] [address] [place] [id number] [place] [address] Jul, [facility] [address] [place] [address] Jul, Medial meniscus tear, right, subsequent encounter S83.241D [facility] [address] [id number] [address] [place] [id number] Jun, Dental examination Z01.20 [facility] [address] [id number] [address] [place] [id number] Jun, Dental examination Z01.20 [facility] [address] [place] [id number] [address] [place] [address] May, Chondromalacia patellae, rig ht knee M22.41 [place] [address] [place] [id number] [place] [address] May, Bilateral thoracic back pain M54.6 ; Substance abuse F19.10 and Tobacco abuse Z72.0 [place] [address] [address] Apr, Bilateral low back pain with sciatica, sciatica laterality unspecified M54.40 [facility] [address] [address] Apr, Bilateral low back pain with sciatica, sciatica laterality unspecified M54.40 [facility] [address] [place] [id number] [place] [address] Apr, Acute right-sided low back p ain with right-sided sciatica M54.41 [place] [address] [address] [place] [id number] [address] [place] [address] Apr, PMS (premenstrual syndrome) N94.3 ; Tobacco abuse counseling Z71.6 and Right knee pain, unspecified chronicity M25.561 [place] [address] [address] March, Well woman exam Z01.419 [facility] [address] [place] [id number] [place] [address] Feb, Methamphetamine addiction F1 5.20 and Folliculitis L73.9 [facility] [address] [id number] [address] [place] [address] Feb, [facility] [address] [facility] [id number] [address] [place] [address] Jan, Well woman exam Z01.419 ; Ro utine gynecological examination V72.31 and Substance abuse F19.10 [facility] [address] [facility] [id number] [address] [place] [address] Jan, Sore throat J02.9 and Acute bronchitis J20.9 [facility] [address] [facility] [id number] [address] [place] [id number] Jan, Dental caries K02.9 [facility] [address] [facility] [id number] [address] [place] [address] Jan, Morbid obesity E66.01 ; Pre- diabetes R73.09 and Onychomycosis B35.1 [facility] [address] [facility] [id number] [address] [place] [address] Jan, Immunization due Z23 [facility] [address] [facility] [id number] [place] [id number] Jan, Encounter for dental examina tion Z01.20 [facility] [address] [facility] [id number] [address] [place] [address] Dec, Sinusitis, acute maxillary J 01.00 [facility] [address] [facility] [id number] [address] [place] [address] Nov, [facility] [address] [facility] [id number] [address] [place] [address] Nov, [facility] [address] [facility] [id number] [address] [place] [address] Nov, [facility] [address] [facility] [id number] [address] [place] [address] Nov, [facility] [address] [place] [id number] [address] [place] [address] Nov, Bilateral low back pain with sciatica, sciatica laterality unspecified M54.40 ; History of back surgery Z98.89 ; Radiculopathy, thoracic region M54.14 ; Radiculopathy of lumbosacral region M54.17 and Bilateral thoracic back pain M54.6 [facility] [address] [id number] [address] [place] [address] Nov, Morbid obesity E66.01 and Ge neral medical exam Z00.00 [facility] [address] [id number] [address] [place] [address] 19 Nov, 2015 Morbid obesity E66.01 and Ge neral medical exam Z00.00 [facility] [address] [id number] [address] [place] [address] Nov, General medical exam Z00.00 ; Lumbago M54.5 ; History of back surgery Z98.89 ; Bilateral low back pain with sciatica, sciatica laterality unspecified M54.40 ; Radiculopathy, thoracic region M54.14 ; Radiculopathy of lumbosacral region M54.17 and Bilateral thoracic back pain M54.6 [facility] [address] [id number] [address] [place] [address] Nov, General medical exam Z00.00 ; Morbid obesity E66.01 ; Substance abuse F19.10 ; Tobacco abuse Z72.0 ; Tobacco abuse counseling Z71.6 ; Lumbago M54.5 ; History of back surgery Z98.89 and Right upper quadrant pain R10.11 [facility] [address] [id number] [address] [place] [address] Feb, [facility] [address] [id number] [address] [place] [address] Feb, [facility] [address] [id number] [address] [place] [address] Jan, [facility] [address] [id number] [address] [place] [address] Jan, [facility] [address] [id number] [address] [place] [address], [place] [address] Jan, [facility] [address] [id number] [address] [place] [address], [place] [address] Jan, [facility] [address] [id number] [address] [place] [address], [place] [address] Oct, [facility] [address] [id number] [address] [place] [address], [place] [address] Oct, [facility] [address] [id number] [address] [place] [address], [place] [address] Sep, [facility] [address] [id number] [address] [place] [address], [place] [address] Sep, [facility] [address] [id number] [address] [place] [address], [place] [address] Jul, [facility] [address] [id number] [address] [place] [address], [place] [address] Jul, [facility] [address] [id number] [address] [place] [address], [place] [address] May, [facility] [address] [id number] [address] [place] [address], [place] [address] May, [facility] [address] [id number] [address] [place] [address], [place] [address] May, [facility] [address] [id number] [address] [place] [address], [place] [address] May, [facility] [address] [id number] [address] [place] [address], [place] [address] Apr, [facility] [address] [id number] [address] [place] [address], [place] [address] Apr, [facility] [address] [id number] [address] [place] [address], [place] [address] Apr, [facility] [address] [id number] [address] [place] [phone] 20 Apr, 2014 [facility] [address] [id number] [address] [place] [address] 19 Apr, 2014 [facility] [address] [id number] [address] [place] [address] 19 Apr, 2014 [facility] [address] [id number] [address] [place] [address] 18 Apr, 2014 [facility] [address] [id number] [address] [place] [address] 16 Apr, 2014 [facility] [address] [id number] [address] [place] [phone] 15 Apr, 2014 [facility] [address] [id number] [address] [place] [phone] 13 Apr, 2014 [facility] [address] [id number] [address] [place] [address] 12 Apr, 2014 [facility] [address] [id number] [address] [place] [address] 12 Apr, 2014 IMMUNIZATIONS No Known Immunizations SOCIAL HISTORY Never [...] 2009- [facility] 2010 and 2011- [facility] 06/2010, 01/2011, 01/2012 Surgical History Right knee scope 10/24/2016 Hospitalization History Surgery(s)/Childbirth(s) only Hospitalization History CHF/ Pneumonia- Post Delivery of Chi ld Hospitalization History Pain r/t back surgery- hospitalized for pain control x3 Hospitalization History [facility] in [place] 02/2016 Hospitalization History [facility] after 3rd back surgery
--- OUTSIDE RECORDS SUMMARY | 2020-05-09 10:29 | XMS REPORT ---
Author Author Larissa Jeronimo Organization [facility] Address [address] [place] [address] Care Team Providers Care Applications Scientist Name Role Phone JEANETTE Jeronimo Unavailable PROBLEMS Type Condition ICD9-CM Code VYR32-VA Code Onset Dates Condition S tatus SNOMED Code Problem H/O bursectomy Z98.890 Active 71770 5003 Problem Substance abuse F19.10 Active 6621 4007 Problem Tobacco abuse Z72.0 Active 099760 05 Problem Onychomycosis B35.1 Active 427365 008 Problem PCOS (polycystic ovarian syndrome) E28.2 Active 76550962 Problem PMS (premenstrual syndrome) N94.3 Ac tive 94150910 Problem Pre-diabetes R73.09 Active 9066121 Problem BMI 40.0-44.9, adult Z68.41 Active 372413141 Problem Reactive depression F32.9 Active 12066839 Problem Cannabis use disorder, severe, dependence F12.20 Active 69752223 Problem Methamphetamine use F15.10 Active 763515758 Problem Lumbar radiculopathy M54.16 Active 837084972 Problem Lumbar disc disease with radiculopathy M51.16 Active 395960796 Problem Anxiety F41.9 Active 64152812 Problem Substance induced mood disorder F19.94 Active 630824684 Problem Methamphetamine use disorder, severe, 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 Active 92214274 Problem Tobacco use disorder, moderate, dependence F17.200 Active 36710855 Problem Opioid use disorder, severe, in sustained remission F11.21 Active 62606910 ALLERGIES No Information ENCOUNTERS Encounter Location Date Diagnosis [facility] [address] [id number] [place] [address] Jan, [facility] [address] [id number] [place] [address] Dec, [facility] [address] [address] Aug, Lumbar disc disease with radiculopathy M 51.16 [place] [address] [address] Jul, [place] [address] [address] Jul, Lumbar radiculopathy M54.[address] [address] March, Lumbar radiculopathy M54.16 and Pre-diab etes R73.09 [facility] [address] [place], [place] [id number] [address] [place] [address] Jan, Epigastric pain R10.13 and M ethamphetamine use F15.[address] [address] Dec, Methamphetamine use disorder, severe, 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 ; Opioid use disorder, severe, in sustained remission F11.21 ; Tobacco use disorder, moderate, dependence F17.200 ; Cannabis use disorder, severe, dependence F12.20 and Substance induced mood disorder F19.[address] [address] Nov, BMI 40.0-44.9, adult Z68.41 ; Lumbar rad iculopathy M54.16 and Reactive depression F32.[address] [address] Sep, Strain of lumbar region, initial encount er S39.012A and BMI 40.0-44.9, adult Z68.41 [facility] [address] [place], [place] [id number] [address] [place] [address] Sep, Acute left-sided low back pa in with left-sided sciatica M54.[address] [address] Sep, [address] [address] 07 Sep, 2017 Lumbago M54.5 and Anxiety F41.9 [facility] [address] [address] Jul, Tobacco abuse Z72.0 ; Anxiety F41.9 and Bilateral thoracic back pain M54.6 [facility] [address] [address] Jul, [facility] [address] [address] Jun, Lumbago M54.5 [place] [address] [address] 07 Apr, 2017 Annual physical exam Z00.00 ; Morbid obe sity E66.01 ; Lumbago M54.5 ; History of back surgery Z98.89 ; Pre-diabetes R73.09 ; PCOS (polycystic ovarian syndrome) E28.2 and Bilateral thoracic back pain M54.6 [facility] [address] [address] Apr, [facility] [address] [address] Jan, Annual physical exam Z00.00 ; PCOS (poly cystic ovarian syndrome) E28.2 ; Substance abuse F19.10 and Pre-diabetes R73.09 [facility] [address] [facility] [id number] [place] [address] Nov, Acute non-recurrent pansinus itis J01.40 [facility] [address] [address] Jul, [facility] [address] [address] Jul, [facility] [address] [address] Jul, Medial meniscus tear, right, subsequent encounter S83.241D [facility] [address] [id number] Jun, Dental examination Z01.20 [facility] [address] [id number] Jun, Dental examination Z01.20 [facility] [address] [address] May, Chondromalacia patellae, right knee M22. 41 [place] [address] [address] May, Bilateral thoracic back pain M54.6 ; Sub stance abuse F19.10 and Tobacco abuse Z72.0 [place] [address] [address] Apr, Bilateral low back pain with sciatica, s ciatica laterality unspecified M54.40 [place] [address] [address] Apr, Bilateral low back pain with sciatica, s ciatica laterality unspecified M54.40 [place] [address] [address] Apr, Acute right-sided low back pain with rig ht-sided sciatica M54.41 [place] [address] [address] Apr, PMS (premenstrual syndrome) N94.3 ; [employer]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 and Right knee pain, unspecified chronicity M25.561 [place] [address] [address] March, Well woman exam Z01.419 [place] [address] [address] Feb, Methamphetamine addiction F15.20 and Fol liculitis L73.9 [place] [address] [address] Feb, [place] [address] [address] Jan, Well woman exam Z01.419 ; Routine gyneco logical examination V72.31 and Substance abuse F19.10 [facility] [address] [place] [id number] [place] [address] Jan, Sore throat J02.9 and Acute bronchitis J20.9 [facility] [address] [id number] [place] [id number] Jan, Dental caries K02.9 [facility] [address] [place] [id number] [place] [address] Jan, Morbid obesity E66.01 ; Pre-diabetes R73 .09 and Onychomycosis B35.1 [facility] [address] [place] [id number] [place] [address] Jan, Immunization due Z23 [facility] [address] [id number] [place] [id number] 15 Jan, 2016 Encounter for dental examination Z01.20 [facility] [address] [address] 12 Dec, 2015 Sinusitis, acute maxillary J01.00 [place] [address] [address] Nov, [facility] [address] [address] Nov, [facility] [address] [address] Nov, [facility] [address] [address] Nov, [facility] [address] [address] Nov, Bilateral low back pain with sciatica, s ciatica laterality unspecified M54.40 ; History of back surgery Z98.89 ; Radiculopathy, thoracic region M54.14 ; Radiculopathy of lumbosacral region M54.17 and Bilateral thoracic back pain M54.6 [place] [address] [address] 19 Nov, 2015 Morbid obesity E66.01 and General medica l exam Z00.00 [facility] [address] [address] 19 Nov, 2015 Morbid obesity E66.01 and General medica l exam Z00.00 [facility] [address] [address] 12 Nov, 2015 General medical exam Z00.00 ; Lumbago M5 4.5 ; History of back surgery Z98.89 ; Bilateral low back pain with sciatica, sciatica laterality unspecified M54.40 ; Radiculopathy, thoracic region M54.14 ; Radiculopathy of lumbosacral region M54.17 and Bilateral thoracic back pain M54.6 [facility] [address] [address] 12 Nov, 2015 General medical exam Z00.00 ; Morbid obe sity E66.01 ; Substance abuse F19.10 ; Tobacco abuse Z72.0 ; Tobacco abuse counseling Z71.6 ; Lumbago M54.5 ; History of back surgery Z98.89 and Right upper quadrant pain R10.11 [place] [address] [address] 14 Feb, 2015 [facility] [address] [address] Feb, [facility] [address] [address] Jan, [facility] [address] [address] Jan, [facility] [address] [address] Jan, [facility] [address] [address] Jan, [facility] [address] [address] Oct, [facility] [address] [id number] [place] [address] Oct, [facility] [address] [id number] [place] [address] Sep, [facility] [address] [id number] [place] [address] Sep, [facility] [address] [id number] [place] [address] Jul, [facility] [address] [id number] [place] [address] Jul, [facility] [address] [id number] [place] [address] May, [facility] [address] [id number] [place] [address] May, [facility] [address] [id number] [place] [address] May, [facility] [address] [id number] [place] [address] May, [facility] [address] [id number] [place] [address] Apr, [facility] [address] [id number] [place] [address] Apr, [facility] [address] [id number] [place] [address] Apr, [facility] [address] [id number] [place] [address] Apr, [facility] [address] [id number] [place] [address] Apr, [facility] [address] [id number] [place] [address] Apr, [facility] [address] [id number] [place] [address] 18 Apr, 2014 [facility] [address] [id number] [place] [address] 16 Apr, 2014 [facility] [address] [id number] [place] [address] 15 Apr, 2014 [facility] [address] [id number] [place] [address] Apr, [facility] [address] [id number] [place] [address] Apr, [facility] [address] [id number] [place] [address] Apr, IMMUNIZATIONS No Known Immunizations SOCIAL HISTORY Never Assessed REASON FOR VISIT PLAN OF CARE VITAL SIGNS Height 64 in 2014-05-07 Weight 255.6 lbs 2014-05-07 Temperature 97.1 degrees Fahrenheit 2014-05-07 Heart Rate 78 bpm 2014-05-07 Respiratory Rate 18 2014-05-07 Blood pressure systolic 122 mmHg 2014-05-07 Blood pressure diastolic 78 mmHg 2014-05-07 MEDICATIONS Unknown Medications RESULTS No Results PROCEDURES Procedure Date Ordered Result Body Site TRICHOMONAS VAGIN, DIR PROBE May 07, 2014 SCR PAP SMER;NEW PT OBTAIN PREP&CONVY-LAB May 07, 2014 CYTOPATH C/V AUTO FLUID REDO May 07, 2014 CHYLMD TRACH, DNA, AMP PROBE May 07, 2014 BLOOD SEROLOGY, QUALITATIVE May 07, 2014 ACUTE HEPATITIS PANEL May 07, 2014 CULTURE, BACTERIA, OTHER May 07, 2014 INSTRUCTIONS MEDICATIONS ADMINISTERED No Known Medications [...] 2006 Surgical History Back Surgery. 2009- [facility] 2010 and 2011- [facility] 06/2010, 01/2011, 01/2012 Surgical History Right knee scope 10/24/2016 Hospitalization History Surgery(s)/Childbirth(s) only Hospitalization History CHF/ Pneumonia- Post Delivery of Chi ld Hospitalization History Pain r/t back surgery- hospitalized for pain control x3 Hospitalization History [facility] in [place] 02/2016 Hospitalization History [facility] after 3rd back surgery
--- OUTSIDE RECORDS SUMMARY | 2020-05-09 10:29 | XMS REPORT ---
Author Author MANAN Larissaflorina ALBARRAN Organization [facility] Address [address] [place] [address] Care Team Providers Care Glove Examiner Name Role Phone MANANCAMILLA AVERYY Unavailable PROBLEMS Type Condition ICD9-CM Code BEA48-ZO Code Onset Dates Condition S tatus SNOMED Code Problem H/O bursectomy Z98.890 Active 11948 5003 Problem Substance abuse F19.10 Active 6621 4007 Problem Tobacco abuse Z72.0 Active 409001 05 Problem Onychomycosis B35.1 Active 824381 008 Problem PCOS (polycystic ovarian syndrome) E28.2 Active 40095507 Problem PMS (premenstrual syndrome) N94.3 Ac tive 69973256 Problem Pre-diabetes R73.09 Active 2996098 Problem BMI 40.0-44.9, adult Z68.41 Active 995521615 Problem Reactive depression F32.9 Active 78806523 Problem Cannabis use disorder, severe, dependence F12.20 Active 90673095 Problem Methamphetamine use F15.10 Active 172059912 Problem Lumbar radiculopathy M54.16 Active 742872524 Problem Lumbar disc disease with radiculopathy M51.16 Active 817638196 Problem Anxiety F41.9 Active 24145943 Problem Substance induced mood disorder F19.94 Active 897063458 Problem Methamphetamine use disorder, severe, 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 [id number] [address] [place] [address] Jan, [facility] [address] [facility] [id number] [address] [place] [address] Dec, [facility] [address] [address] Aug, Lumbar disc disease with rad iculopathy M51.16 [place] [address] [address] Jul, [place] [address] [address] Jul, Lumbar radiculopathy M54.16 [place] [address] [address] March, Lumbar radiculopathy M54.16 and Pre-diabetes R73.09 [facility] [place] [address] [address] Jan, Epigastric pain R10.13 and M ethamphetamine use F15.[address] [address] Dec, Methamphetamine use disorder , severe, 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 ; Opioid use disorder, severe, in sustained remission F11.21 ; Tobacco use disorder, moderate, dependence F17.200 ; Cannabis use disorder, severe, dependence F12.20 and Substance induced mood disorder F19.94 [place] [address] [address] Nov, BMI 40.0-44.9, adult Z68.41 ; Lumbar radiculopathy M54.16 and Reactive depression F32.9 [place] [address] [place] [id number] [address] [place] [address] Sep, Strain of lumbar region, ini tial encounter S39.012A and BMI 40.0- 44.9, adult Z68.41 [facility] [place] [address] [address] Sep, Acute left-sided low back pa in with left-sided sciatica M54.42 [place] [address] [address] Sep, [facility] [address] [facility] [id number] [address] [place] [address] Sep, Lumbago M54.5 and Anxiety F4 1.9 [facility] [address] [facility] [id number] [address] [place] [address] Jul, Tobacco abuse Z72.0 ; Anxiet y F41.9 and Bilateral thoracic back pain M54.6 [facility] [address] [place] [id number] [address] [place] [address] Jul, [facility] [address] [facility] [id number] [address] [place] [address] Jun, Lumbago M54.5 [facility] [address] [place] [id number] [address] [place] [address] Apr, Annual physical exam Z00.00 ; Morbid obesity E66.01 ; Lumbago M54.5 ; History of back surgery Z98.89 ; Pre-diabetes R73.09 ; PCOS (polycystic ovarian syndrome) E28.2 and Bilateral thoracic back pain M54.6 [facility] [id number] [place] [address] Apr, [facility] [address] [place] [id number] [address] [place] [address] Jan, Annual physical exam Z00.00 ; PCOS (polycystic ovarian syndrome) E28.2 ; Substance abuse F19.10 and Pre-diabetes R73.09 [facility] [address] [facility] [id number] [address] [place] [address] Nov, Acute non-recurrent pansinus itis J01.40 [facility] [address] [facility] [id number] [address] [place] [address] Jul, [facility] [address] [place] [id number] [address] [place] [address] Jul, [facility] [address] [place] [id number] [address] [place] [address] Jul, Medial meniscus tear, right, subsequent encounter S83.241D [facility] [address] [id number] [address] [place] [id number] Jun, Dental examination Z01.20 [facility] [address] [id number] [address] [place] [id number] Jun, Dental examination Z01.20 [facility] [address] 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 [id number] [address] [place] [address] May, Bilateral thoracic back pain M54.6 ; Substance abuse F19.10 and Tobacco abuse Z72.0 [place] [address] [place] [id number] [address] [place] [address] Apr, Bilateral low back pain with sciatica, sciatica laterality unspecified M54.40 [facility] [address] [place] [id number] [address] [place] [address] Apr, Bilateral low back pain with sciatica, sciatica laterality unspecified M54.40 [facility] [address] [place] [id number] [address] [place] [address] Apr, Acute right-sided low back p ain with right-sided sciatica M54.41 [place] [address] [place] [id number] [address] [place] [address] Apr, PMS (premenstrual syndrome) N94.3 ; Tobacco abuse counseling Z71.6 and Right knee pain, unspecified chronicity M25.561 [place] [address] [place] [id number] [address] [place] [address] March, Well woman exam Z01.419 [facility] [address] [facility] [id number] [address] [place] [address] Feb, Methamphetamine addiction F1 5.20 and Folliculitis L73.9 [place] [address] [id number] [address] [place] [address] Feb, [facility] [address] [facility] [id number] [address] [place] [address] Jan, Well woman exam Z01.419 ; Ro utine gynecological examination V72.31 and Substance abuse F19.10 [facility] [address] [facility] [id number] [address] [place] [address] Jan, Sore throat J02.9 and Acute bronchitis J20.9 [facility] [address] [facility] [id number] [address] [place] [id number] Jan, Dental caries K02.9 [facility] [address] [id number] [address] [place] [address] Jan, Morbid obesity E66.01 ; Pre- diabetes R73.09 and Onychomycosis B35.1 [facility] [address] [id number] [address] [place] [phone] Jan, Immunization due Z23 [facility] [address] [facility] [id number] [place] [address] [id number] 15 Jan, 2016 Encounter for dental examina tion Z01.20 [facility] [address] [facility] [id number] [address] [place] [address] 12 Dec, 2015 Sinusitis, acute maxillary J 01.00 [facility] [address] [facility] [id number] [address] [place] [address] Nov, [facility] [address] [id number] [address] [place] [phone] Nov, [facility] [address] [facility] [id number] [address] [place] [address] Nov, [facility] [address] [facility] [id number] [address] [place] [phone] Nov, [facility] [address] [facility] [id number] [address] [place] [address] Nov, Bilateral low back pain with sciatica, sciatica laterality unspecified M54.40 ; History of back surgery Z98.89 ; Radiculopathy, thoracic region M54.14 ; Radiculopathy of lumbosacral region M54.17 and Bilateral thoracic back pain M54.6 [facility] [address] [id number] [address] [place] [address] Nov, Morbid obesity E66.01 and Ge neral medical exam Z00.00 [facility] [address] [id number] [address] [place] [address] Nov, Morbid obesity E66.01 and Ge neral medical exam Z00.00 [place] [address] [facility] [id number] [address] [place] [address] Nov, General medical exam Z00.00 ; Lumbago M54.5 ; History of back surgery Z98.89 ; Bilateral low back pain with sciatica, sciatica laterality unspecified M54.40 ; Radiculopathy, thoracic region M54.14 ; Radiculopathy of lumbosacral region M54.17 and Bilateral thoracic back pain M54.6 [place] [address] [facility] [id number] [address] [place] [address] Nov, General medical exam Z00.00 ; Morbid obesity E66.01 ; Substance abuse F19.10 ; Tobacco abuse Z72.0 ; Tobacco abuse counseling Z71.6 ; Lumbago M54.5 ; History of back surgery Z98.89 and Right upper quadrant pain R10.11 [place] [address] [id number] [address] [place] [phone] Feb, [place] [address] [facility] [id number] [address] [place] [phone] Feb, [facility] [address] [facility] [id number] [address] [place] [phone] Jan, [place] [address] [facility] [id number] [address] [place] [phone] Jan, [facility] [address] [id number] [address] [place] [address], [place] [address] Jan, [facility] [address] [id number] [address] [place] [address], [place] [address] Jan, [facility] [address] [id number] [address] [place] [address], [place] [address] Oct, [facility] [address] [id number] [address] [place] [address], [place] [address] Oct, [facility] [address] [id number] [address] [place] [address], [place] [address] Sep, [facility] [address] [id number] [address] [place] [address], [place] [address] Sep, [facility] [address] [id number] [address] [place] [address], [place] [address] Jul, [facility] [address] [id number] [address] [place] [address], [place] [address] Jul, [facility] [address] [id number] [address] [place] [address], [place] [address] May, [facility] [address] [id number] [address] [place] [address], [place] [address] May, [facility] [address] [id number] [address] [place] [address], [place] [address] May, [facility] [address] [id number] [address] [place] [address], [place] [address] May, [facility] [address] [id number] [address] [place] [address], [place] [address] Apr, [facility] [address] [id number] [address] [place] [address], [place] [address] Apr, [facility] [address] [id number] [address] [place] [address], [place] [address] Apr, [facility] [address] [id number] [address] [place] [phone] Apr, [facility] [address] [id number] [address] [place] [phone] Apr, [facility] [address] [id number] [address] [place] [phone] Apr, [facility] [address] [id number] [address] [place] [phone] 18 Apr, 2014 [facility] [address] [id number] [address] [place] [phone] 16 Apr, 2014 [facility] [address] [id number] [address] [place] [phone] 15 Apr, 2014 [facility] [address] [id number] [address] [place] [address] Apr, [facility] [address] [id number] [address] [place] [id number] Apr, [facility] [address] [id number] [address] [place] [address] Apr, IMMUNIZATIONS No Known Immunizations SOCIAL HISTORY Never Assessed REASON FOR VISIT PLAN OF CARE VITAL SIGNS Height 64 in 2014-07-28 Weight 258.38 lbs 2014-07-28 Temperature 97.1 degrees Fahrenheit 2014-07-28 Heart Rate 78 bpm 2014-07-28 Respiratory Rate 18 2014-07-28 Blood pressure systolic 118 mmHg 2014-07-28 Blood pressure diastolic 72 mmHg 2014-07-28 MEDICATIONS Unknown Medications RESULTS No Results PROCEDURES [...] 2009- [facility] 2010 and 2011- [facility] 06/2010, 01/2011, 01/2012 Surgical History Right knee scope 10/24/2016 Hospitalization History Surgery(s)/Childbirth(s) only Hospitalization History CHF/ Pneumonia- Post Delivery of Chi ld Hospitalization History Pain r/t back surgery- hospitalized for pain control x3 Hospitalization History [facility] in [place] 02/2016 Hospitalization History MSSA after 3rd back surgery
--- OUTSIDE RECORDS SUMMARY | 2020-05-09 10:29 | XMS REPORT ---
Author Author Larissa POLLACK Organization [facility] Address [address] [place] [address] Care Team Providers Care Cigar Packer And Picker Name Role Phone KIMANI POLLACK Unavailable PROBLEMS Type Condition ICD9-CM Code PAA30-JA Code Onset Dates Condition S tatus SNOMED Code Problem H/O bursectomy Z98.890 Active 58784 5003 Problem Substance abuse F19.10 Active 6621 4007 Problem Tobacco abuse Z72.0 Active 563426 05 Problem Onychomycosis B35.1 Active 005186 008 Problem PCOS (polycystic ovarian syndrome) E28.2 Active 90909747 Problem PMS (premenstrual syndrome) N94.3 Ac tive 62257257 Problem Pre-diabetes R73.09 Active 9417604 Problem BMI 40.0-44.9, adult Z68.41 Active 354812531 Problem Reactive depression F32.9 Active 64122585 Problem Cannabis use disorder, severe, dependence F12.20 Active 55650247 Problem Methamphetamine use F15.10 Active 016780922 Problem Lumbar radiculopathy M54.16 Active 114577768 Problem Lumbar disc disease with radiculopathy M51.16 Active 496953758 Problem Anxiety F41.9 Active 92821665 Problem Substance induced mood disorder F19.94 Active 366710232 Problem Methamphetamine use disorder, severe, 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 Active 34413115 Problem Tobacco use disorder, moderate, dependence F17.200 Active 69032895 Problem Opioid use disorder, severe, in sustained remission F11.21 Active 72819194 ALLERGIES No Information ENCOUNTERS Encounter Location Date Diagnosis [facility] [address] [id number] [place] [address] Jan, [facility] [address] [facility] [place] [address] Dec, [facility] [address] [address] Aug, Lumbar disc disease with radiculopathy M 51.16 [place] [address] [address] Jul, [place] [address] [address] Jul, Lumbar radiculopathy M54.16 [place] [address] [address] March, Lumbar radiculopathy M54.16 and Pre-diab etes R73.09 [facility] [address] [place], [place] [id number] [address] [place] [address] Jan, Epigastric pain R10.13 and M ethamphetamine use F15.[address] [address] Dec, Methamphetamine use disorder, severe, 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 ; Opioid use disorder, severe, in sustained remission F11.21 ; Tobacco use disorder, moderate, dependence F17.200 ; Cannabis use disorder, severe, dependence F12.20 and Substance induced mood disorder F19.[address] [address] Nov, BMI 40.0-44.9, adult Z68.41 ; Lumbar rad iculopathy M54.16 and Reactive depression F32.[address] [address] Sep, Strain of lumbar region, initial encount er S39.012A and BMI 40.0-44.9, adult Z68.41 [facility] [address] [place] [id number] [address] [place] [address] Sep, Acute left-sided low back pa in with left-sided sciatica M54.[address] [address] Sep, [place] [id number] [place] [address] 07 Sep, 2017 Lumbago M54.5 and Anxiety F41.9 [facility] [address] [address] 26 Jul, 2017 Tobacco abuse Z72.0 ; Anxiety F41.9 and Bilateral thoracic back pain M54.6 [place] [address] [address] Jul, [facility] [address] [address] Jun, Lumbago M54.5 [place] [address] [address] 07 Apr, 2017 Annual physical exam Z00.00 ; Morbid obe sity E66.01 ; Lumbago M54.5 ; History of back surgery Z98.89 ; Pre-diabetes R73.09 ; PCOS (polycystic ovarian syndrome) E28.2 and Bilateral thoracic back pain M54.6 [place] [address] [address] Apr, [place] [address] [address] Jan, Annual physical exam Z00.00 ; PCOS (poly cystic ovarian syndrome) E28.2 ; Substance abuse F19.10 and Pre-diabetes R73.09 [facility] [address] [facility] [id number] [place] [address] Nov, Acute non-recurrent pansinus itis J01.40 [facility] [address] [address] Jul, [facility] [address] [address] Jul, [facility] [address] [address] Jul, Medial meniscus tear, right, subsequent encounter S83.241D [facility] [address] [id number] Jun, Dental examination Z01.20 [facility] [address] [id number] Jun, Dental examination Z01.20 [facility] [address] [address] May, Chondromalacia patellae, right knee M22. 41 [place] [address] [address] May, Bilateral thoracic back pain M54.6 ; Sub stance abuse F19.10 and Tobacco abuse Z72.0 [place] [address] [address] Apr, Bilateral low back pain with sciatica, s ciatica laterality unspecified M54.40 [place] [address] [address] Apr, Bilateral low back pain with sciatica, s ciatica laterality unspecified M54.40 [place] [address] [address] Apr, Acute right-sided low back pain with rig ht-sided sciatica M54.41 [place] [address] [address] Apr, PMS (premenstrual syndrome) N94.3 ; [employer]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 and Right knee pain, unspecified chronicity M25.561 [place] [address] [address] March, Well woman exam Z01.419 [place] [address] [address] Feb, Methamphetamine addiction F15.20 and Fol liculitis L73.9 [place] [address] [address] Feb, [place] [address] [address] Jan, Well woman exam Z01.419 ; Routine gyneco logical examination V72.31 and Substance abuse F19.10 [facility] [address] [place] [id number] [place] [address] Jan, Sore throat J02.9 and Acute bronchitis J20.9 [facility] [address] [facility] [place] [address] Jan, Dental caries K02.9 [facility] [address] [place] [id number] [place] [address] Jan, Morbid obesity E66.01 ; Pre-diabetes R73 .09 and Onychomycosis B35.1 [facility] [address] [place] [id number] [place] [address] Jan, Immunization due Z23 [facility] [address] [facility] [place] [id number] Jan, Encounter for dental examination Z01.20 [facility] [address] [address] 12 Dec, 2015 Sinusitis, acute maxillary J01.00 [facility] [address] [address] Nov, [facility] [address] [address] Nov, [facility] [address] [address] Nov, [facility] [address] [address] Nov, [facility] [address] [address] Nov, Bilateral low back pain with sciatica, s ciatica laterality unspecified M54.40 ; History of back surgery Z98.89 ; Radiculopathy, thoracic region M54.14 ; Radiculopathy of lumbosacral region M54.17 and Bilateral thoracic back pain M54.6 [facility] [address] [address] 19 Nov, 2015 Morbid obesity E66.01 and General medica l exam Z00.00 [facility] [address] [address] Nov, Morbid obesity E66.01 and General medica l exam Z00.00 [facility] [address] [address] 12 Nov, 2015 General medical exam Z00.00 ; Lumbago M5 4.5 ; History of back surgery Z98.89 ; Bilateral low back pain with sciatica, sciatica laterality unspecified M54.40 ; Radiculopathy, thoracic region M54.14 ; Radiculopathy of lumbosacral region M54.17 and Bilateral thoracic back pain M54.6 [facility] [address] [address] Nov, General medical exam Z00.00 ; Morbid obe sity E66.01 ; Substance abuse F19.10 ; Tobacco abuse Z72.0 ; Tobacco abuse counseling Z71.6 ; Lumbago M54.5 ; History of back surgery Z98.89 and Right upper quadrant pain R10.11 [facility] [address] [address] 14 Feb, 2015 [facility] [address] [address] Feb, [facility] [address] [address] Jan, [facility] [address] [address] Jan, [facility] [address] [address] Jan, [facility] [address] [address] Jan, [facility] [address] [address] Oct, [facility] [place] [facility] [address] [id number] [place] [address] Oct, [facility] [place] [facility] [address] [id number] [place] [address] Sep, [facility] [place] [facility] [address] [id number] [place] [address] Sep, [facility] [place] [facility] [address] [id number] [place] [address] Jul, [facility] [place] [facility] [address] [id number] [place] [address] Jul, [facility] [place] [facility] [address] [id number] [place] [address] May, [facility] [place] [facility] [address] [id number] [place] [address] May, [facility] [place] [facility] [address] [id number] [place] [address] May, [facility] [place] [facility] [address] [id number] [place] [address] May, [facility] [place] [facility] [address] [id number] [place] [address] Apr, [facility] [place] [facility] [address] [id number] [place] [address] Apr, [facility] [place] [facility] [address] [id number] [place] [address] Apr, [facility] [place] [facility] [address] [id number] [place] [address] Apr, [facility] [place] [facility] [address] [id number] [place] [address] Apr, [facility] [place] [facility] [address] [id number] [place] [address] Apr, [facility] [place] [facility] [address] [facility] [place] [address] 18 Apr, 2014 [facility] [place] [facility] [address] [id number] [place] [address] Apr, [facility] [address] [facility] [place] [address] Apr, [facility] [address] [id number] [place] [address] Apr, [facility] [address] [facility] [place] [address] Apr, [facility] [address] [id number] [place] [address] Apr, IMMUNIZATIONS No Known Immunizations SOCIAL HISTORY Never Assessed REASON FOR VISIT Medication question PLAN OF CARE VITAL SIGNS MEDICATIONS Medication Instructions Dosage Frequency Start Date End Date Duration S tatus Tamiflu 75 MG Orally Once a day 1 capsule 24h Jan, 1 0 days Active RESULTS No Results PROCEDURES No [...] Surgery. 2009- [facility] 2010 and 2011- [facility] 06/2010, 01/2011, 01/2012 Surgical History Right knee scope 10/24/2016 Hospitalization History Surgery(s)/Childbirth(s) only Hospitalization History CHF/ Pneumonia- Post Delivery of Chi ld Hospitalization History Pain r/t back surgery- hospitalized for pain control x3 Hospitalization History [facility] in [place] 02/2016 Hospitalization History [facility] after 3rd back surgery
--- OUTSIDE RECORDS SUMMARY | 2020-05-09 10:30 | XMS REPORT ---
Author Author Larissa Almeida Organization [facility] Address [address] [place] [address] Care Team Providers Care Political Director Name Role Phone FARHAD Almeida Unavailable PROBLEMS Type Condition ICD9-CM Code [id number] Code Onset Dates Condition S tatus SNOMED Code Problem H/O bursectomy Z98.890 Active 63331 5003 Problem Substance abuse F19.10 Active 6621 4007 Problem Tobacco abuse Z72.0 Active 599270 05 Problem Onychomycosis B35.1 Active 420022 008 Problem PCOS (polycystic ovarian syndrome) E28.2 Active 97385948 Problem PMS (premenstrual syndrome) N94.3 Ac tive 83337064 Problem Pre-diabetes R73.09 Active 2184059 Problem BMI 40.0-44.9, adult Z68.41 Active 365329815 Problem Reactive depression F32.9 Active 61464829 Problem Cannabis use disorder, severe, dependence F12.20 Active 67415045 Problem Methamphetamine use F15.10 Active 117066767 Problem Lumbar radiculopathy M54.16 Active 055979396 Problem Lumbar disc disease with radiculopathy M51.16 Active 083104083 Problem Anxiety F41.9 Active 96272154 Problem Substance induced mood disorder F19.94 Active 401102234 Problem Methamphetamine use disorder, severe, 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 Active 03400046 Problem Tobacco use disorder, moderate, dependence F17.200 Active 39112527 Problem Opioid use disorder, severe, in sustained remission F11.21 Active 05666370 ALLERGIES No Information ENCOUNTERS Encounter Location Date Diagnosis [facility] [address] [facility] [id number] [address] [place] [address] Jan, [facility] [address] [facility] [id number] [address] [place] [address] Dec, [place] [address] [place] [address] Aug, Lumbar disc disease with rad iculopathy M51.16 [place] [address] [address] Jul, [place] [address] [address] Jul, Lumbar radiculopathy M54.16 [place] [address] [address] March, Lumbar radiculopathy M54.16 and Pre-diabetes R73.09 [facility] [place] [address] [address] Jan, Epigastric pain R10.13 and M ethamphetamine use F15.10 [place] [address] [address] Dec, Methamphetamine use disorder , severe, 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 ; Opioid use disorder, severe, in sustained remission F11.21 ; Tobacco use disorder, moderate, dependence F17.200 ; Cannabis use disorder, severe, dependence F12.20 and Substance induced mood disorder F19.94 [place] [address] [place] [id number] [place] [address] Nov, BMI 40.0-44.9, adult Z68.41 ; Lumbar radiculopathy M54.16 and Reactive depression F32.9 [place] [address] [place] [id number] [place] [address] Sep, Strain of lumbar region, ini tial encounter S39.012A and BMI 40.0- 44.9, adult Z68.41 [facility] [address] [place] [id number] [place] [address] Sep, Acute left-sided low back pa in with left-sided sciatica M54.42 [place] [address] [place] [address] Sep, [facility] [address] [address] Sep, Lumbago M54.5 and Anxiety F4 1.9 [facility] [address] [place] [id number] [place] [address] Jul, Tobacco abuse Z72.0 ; Anxiet y F41.9 and Bilateral thoracic back pain M54.6 [facility] [address] [address] Jul, [facility] [address] [address] Jun, Lumbago M54.5 [facility] [address] [address] Apr, Annual physical exam Z00.00 ; Morbid obesity E66.01 ; Lumbago M54.5 ; History of back surgery Z98.89 ; Pre-diabetes R73.09 ; PCOS (polycystic ovarian syndrome) E28.2 and Bilateral thoracic back pain M54.6 [facility] [address] [address] Apr, [facility] [address] [address] Jan, Annual physical exam Z00.00 ; PCOS (polycystic ovarian syndrome) E28.2 ; Substance abuse F19.10 and Pre-diabetes R73.09 [facility] [address] [place] [id number] [place] [address] Nov, Acute non-recurrent pansinus itis J01.40 [facility] [address] [place] [id number] [place] [address] Jul, [facility] [address] [place] [id number] [place] [address] Jul, [facility] [address] [place] [address] Jul, Medial meniscus tear, right, subsequent encounter S83.241D [facility] [address] [id number] [address] [place] [id number] Jun, Dental examination Z01.20 [facility] [address] [id number] [address] [place] [id number] Jun, Dental examination Z01.20 [facility] [address] [place] [id number] [place] [address] May, Chondromalacia patellae, rig ht knee M22.41 [place] [address] [place] [id number] [place] [address] May, Bilateral thoracic back pain M54.6 ; Substance abuse F19.10 and Tobacco abuse Z72.0 [place] [address] [address] Apr, Bilateral low back pain with sciatica, sciatica laterality unspecified M54.40 [facility] [address] [address] Apr, Bilateral low back pain with sciatica, sciatica laterality unspecified M54.40 [facility] [address] [place] [id number] [place] [address] Apr, Acute right-sided low back p ain with right-sided sciatica M54.41 [place] [address] [place] [id number] [place] [address] Apr, PMS (premenstrual syndrome) N94.3 ; Tobacco abuse counseling Z71.6 and Right knee pain, unspecified chronicity M25.561 [place] [address] [address] March, Well woman exam Z01.419 [facility] [address] [place] [id number] [place] [address] Feb, Methamphetamine addiction F1 5.20 and Folliculitis L73.9 [facility] [address] [id number] [address] [place] [address] Feb, [facility] [address] [facility] [id number] [address] [place] [address] Jan, Well woman exam Z01.419 ; Ro utine gynecological examination V72.31 and Substance abuse F19.10 [facility] [address] [facility] [id number] [address] [place] [address] Jan, Sore throat J02.9 and Acute bronchitis J20.9 [facility] [address] [facility] [id number] [address] [place] [id number] Jan, Dental caries K02.9 [facility] [address] [facility] [id number] [address] [place] [address] Jan, Morbid obesity E66.01 ; Pre- diabetes R73.09 and Onychomycosis B35.1 [facility] [address] [facility] [id number] [address] [place] [address] Jan, Immunization due Z23 [facility] [address] [facility] [id number] [place] [id number] Jan, Encounter for dental examina tion Z01.20 [facility] [address] [facility] [id number] [address] [place] [address] Dec, Sinusitis, acute maxillary J 01.00 [facility] [address] [facility] [id number] [address] [place] [address] Nov, [facility] [address] [facility] [id number] [address] [place] [address] Nov, [facility] [address] [facility] [id number] [address] [place] [address] Nov, [facility] [address] [facility] [id number] [address] [place] [address] Nov, [facility] [address] [place] [id number] [place] [address] Nov, Bilateral low back pain with sciatica, sciatica laterality unspecified M54.40 ; History of back surgery Z98.89 ; Radiculopathy, thoracic region M54.14 ; Radiculopathy of lumbosacral region M54.17 and Bilateral thoracic back pain M54.6 [facility] [address] [id number] [address] [place] [address] Nov, Morbid obesity E66.01 and Ge neral medical exam Z00.00 [facility] [address] [id number] [address] [place] [address] 19 Nov, 2015 Morbid obesity E66.01 and Ge neral medical exam Z00.00 [facility] [address] [id number] [address] [place] [address] Nov, General medical exam Z00.00 ; Lumbago M54.5 ; History of back surgery Z98.89 ; Bilateral low back pain with sciatica, sciatica laterality unspecified M54.40 ; Radiculopathy, thoracic region M54.14 ; Radiculopathy of lumbosacral region M54.17 and Bilateral thoracic back pain M54.6 [facility] [address] [id number] [address] [place] [address] Nov, General medical exam Z00.00 ; Morbid obesity E66.01 ; Substance abuse F19.10 ; Tobacco abuse Z72.0 ; Tobacco abuse counseling Z71.6 ; Lumbago M54.5 ; History of back surgery Z98.89 and Right upper quadrant pain R10.11 [facility] [address] [id number] [address] [place] [address] Feb, [facility] [address] [id number] [address] [place] [address] Feb, [facility] [address] [id number] [address] [place] [address] Jan, [facility] [address] [id number] [address] [place] [address] Jan, [facility] [address] [id number] [address] [place] [address], [place] [address] Jan, [facility] [place] [facility] [address] [id number] [address] [place] [address], [place] [address] Jan, [facility] [address] [id number] [address] [place] [address], [place] [address] Oct, [facility] [place] [facility] [address] [id number] [address] [place] [address], [place] [address] Oct, [facility] [address] [id number] [address] [place] [address], [place] [address] Sep, [facility] [place] [facility] [address] [id number] [address] [place] [address], [place] [address] Sep, [facility] [address] [id number] [address] [place] [address], [place] [address] Jul, [facility] [place] [facility] [address] [id number] [address] [place] [address], [place] [address] Jul, [facility] [place] [facility] [address] [id number] [address] [place] [address], [place] [address] May, [facility] [place] [facility] [address] [id number] [address] [place] [address], [place] [address] May, [facility] [place] [facility] [address] [id number] [address] [place] [address], [place] [address] May, [facility] [place] [facility] [address] [id number] [address] [place] [address], [place] [address] May, [facility] [place] [facility] [address] [id number] [address] [place] [address], [place] [address] Apr, [facility] [address] [id number] [address] [place] [address], [place] [phone] Apr, [facility] [address] [id number] [address] [place] [address], [place] [phone] Apr, [facility] [address] [id number] [address] [place] [phone] 20 Apr, 2014 [facility] [address] [id number] [address] [place] [phone] 19 Apr, 2014 [facility] [address] [id number] [address] [place] [phone] 19 Apr, 2014 [facility] [address] [id number] [address] [place] [phone] 18 Apr, 2014 [facility] [address] [id number] [address] [place] [phone] 16 Apr, 2014 [facility] [address] [id number] [address] [place] [id number] 15 Apr, 2014 [facility] [address] [id number] [address] [place] [phone] 13 Apr, 2014 [facility] [address] [id number] [address] [place] [phone] 12 Apr, 2014 [facility] [address] [id number] [address] [place] [phone] 12 Apr, 2014 IMMUNIZATIONS No Known Immunizations [...] 2009- [facility] 2010 and 2011- [facility] 06/2010, 01/2011, 01/2012 Surgical History Right knee scope 10/24/2016 Hospitalization History Surgery(s)/Childbirth(s) only Hospitalization History CHF/ Pneumonia- Post Delivery of Chi ld Hospitalization History Pain r/t back surgery- hospitalized for pain control x3 Hospitalization History [facility] [place] 02/2016 Hospitalization History [facility] after 3rd back surgery
--- OUTSIDE RECORDS SUMMARY | 2020-05-09 10:30 | XMS REPORT ---
Author Author Larissa Islas Doctor Organization [facility] Address Unknown Phone Unavailable Care Team Providers Care Casino Host Name Role Phone Migration, Doctor Unavailable Unavailable PROBLEMS Type Condition ICD9-CM Code MLR33-KH Code Onset Dates Condition S tatus SNOMED Code Problem H/O bursectomy Z98.890 Active 37116 5003 Problem Substance abuse F19.10 Active 6621 4007 Problem Tobacco abuse Z72.0 Active 517408 05 Problem Onychomycosis B35.1 Active 641882 008 Problem PCOS (polycystic ovarian syndrome) E28.2 Active 87141222 Problem PMS (premenstrual syndrome) N94.3 Ac tive 60395454 Problem Pre-diabetes R73.09 Active 8120274 Problem BMI 40.0-44.9, adult Z68.41 Active 984545725 Problem Reactive depression F32.9 Active 86860310 Problem Cannabis use disorder, severe, dependence F12.20 Active 02437145 Problem Methamphetamine use F15.10 Active 727081743 Problem Lumbar radiculopathy M54.16 Active 002270554 Problem Lumbar disc disease with radiculopathy M51.16 Active 812967687 Problem Anxiety F41.9 Active 41220382 Problem Substance induced mood disorder F19.94 Active 458598113 Problem Methamphetamine use disorder, severe, 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 Active 72427938 Problem Tobacco use disorder, moderate, dependence F17.200 Active 57218164 Problem Opioid use disorder, severe, in sustained remission F11.21 Active 03366928 ALLERGIES No Information ENCOUNTERS Encounter Location Date Diagnosis [facility] [place] [address] [facility] [id number] [address] [place] [id number] Dec, [facility] [place] [address] [place] [id number] [address] [place] [id number] Aug, Lumbar disc disease with rad iculopathy M51.16 [facility] [place] [address] [facility] [id number] [address] [place] [id number] Jul, [place] [address] [address] Jul, Lumbar radiculopathy M54.16 [place] [address] [address] March, Lumbar radiculopathy M54.16 and Pre-diabetes R73.09 [facility] [address] [address] Jan, Epigastric pain R10.13 and M ethamphetamine use F15.10 [place] [address] [phone] Dec, Methamphetamine use disorder , severe, 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 ; Opioid use disorder, severe, in sustained remission F11.21 ; Tobacco use disorder, moderate, dependence F17.200 ; Cannabis use disorder, severe, dependence F12.20 and Substance induced mood disorder F19.94 [place] [address] [id number] Nov, BMI 40.0-44.9, adult Z68.41 ; Lumbar radiculopathy M54.16 and Reactive depression F32.9 [place] [address] [address] Sep, Strain of lumbar region, ini tial encounter S39.012A and BMI 40.0- 44.9, adult Z68.41 [facility] [address] [place] [id number] [address] [place] [id number] Sep, Acute left-sided low back pa in with left-sided sciatica M54.42 [place] [address] [id number] Sep, [place] [address] [address] Sep, Lumbago M54.5 and Anxiety F4 1.9 [place] [address] [facility] [id number] [address] [place] [id number] 26 Jul, 2017 Tobacco abuse Z72.0 ; Anxiet y F41.9 and Bilateral thoracic back pain M54.6 [facility] [place] [address] [facility] [id number] [address] [place] [id number] 06 Jul, 2017 [facility] [place] [address] [facility] [id number] [address] [place] [phone] Jun, Lumbago M54.5 [facility] [place] [address] [facility] [id number] [address] [place] [id number] 07 Apr, 2017 Annual physical exam Z00.00 ; Morbid obesity E66.01 ; Lumbago M54.5 ; History of back surgery Z98.89 ; Pre-diabetes R73.09 ; PCOS (polycystic ovarian syndrome) E28.2 and Bilateral thoracic back pain M54.6 [facility] [place] [address] [place] [id number] [address] [place] [id number] Apr, [facility] [place] [address] [place] [id number] [address] [place] [id number] 07 Jan, 2017 Annual physical exam Z00.00 ; PCOS (polycystic ovarian syndrome) E28.2 ; Substance abuse F19.10 and Pre-diabetes R73.09 [facility] [address] [facility] [id number] [address] [place] [phone] Nov, Acute non-recurrent pansinus itis J01.40 [facility] [place] [address] [place] [id number] [address] [place] [id number] Jul, [facility] [place] [address] [place] [id number] [address] [place] [id number] Jul, [facility] [place] [address] [place] [id number] [address] [place] [id number] Jul, Medial meniscus tear, right, subsequent encounter S83.241D [facility] [address] [id number] [address] [place] [id number] 31 Aug, [address] [facility] [address] [id number] [address] [place] [address] [id number] Jun, Dental examination Z01.20 [facility] [place] [address] [facility] [id number] [address] [place] [phone] May, Chondromalacia patellae, rig ht knee M22.41 [place] [address] [facility] [id number] [address] [place] [id number] May, Bilateral thoracic back pain M54.6 ; Substance abuse F19.10 and Tobacco abuse Z72.0 [place] [address] [facility] [id number] [address] [place] [id number] Apr, Bilateral low back pain with sciatica, sciatica laterality unspecified M54.40 [place] [address] [facility] [id number] [address] [place] [id number] Apr, Bilateral low back pain with sciatica, sciatica laterality unspecified M54.40 [place] [address] [place] [id number] [address] [place] [id number] Apr, Acute right-sided low back p ain with right-sided sciatica M54.41 [place] [address] [place] [id number] [address] [place] [id number] Apr, PMS (premenstrual syndrome) N94.3 ; Tobacco abuse counseling Z71.6 and Right knee pain, unspecified chronicity M25.561 [place] [address] [facility] [id number] [address] [place] [id number] March, Well woman exam Z01.419 [place] [address] [facility] [id number] [address] [place] [id number] Feb, Methamphetamine addiction F1 5.20 and Folliculitis L73.9 [place] [address] [facility] [id number] [address] [place] [id number] Feb, [place] [address] [facility] [id number] [address] [place] [id number] Jan, Well woman exam Z01.419 ; Ro utine gynecological examination V72.31 and Substance abuse F19.10 [facility] [address] [facility] [id number] [address] [place] [id number] Jan, Sore throat J02.[address]itis J20.9 [facility] [address] [facility] [id number] [address] [place] [id number] Jan, Dental caries K02.9 [facility] [place] [address] [facility] [id number] [address] [place] [id number] Jan, Morbid obesity E66.01 ; Pre- diabetes R73.09 and Onychomycosis B35.1 [facility] [address] [facility] [id number] [address] [place] [id number] Jan, Immunization due Z23 [facility] [address] [facility] [id number] [place] [address] [id number] Jan, Encounter for dental examina tion Z01.20 [facility] [place] [address] [place] [id number] [address] [place] [id number] Dec, Sinusitis, acute maxillary J 01.00 [facility] [place] [address] [place] [id number] [address] [place] [id number] Nov, [facility] [place] [address] [place] [id number] [address] [place] [id number] Nov, [facility] [place] [id number] [place] [id number] Nov, [facility] [place] [address] [place] [id number] [address] [place] [id number] Nov, [facility] [place] [address] [place] [id number] [place] [phone] Nov, Bilateral low back pain with sciatica, sciatica laterality unspecified M54.40 ; History of back surgery Z98.89 ; Radiculopathy, thoracic region M54.14 ; Radiculopathy of lumbosacral region M54.17 and Bilateral thoracic back pain M54.6 [facility] [place] [address] [id number] [address] [place] [id number] 19 Nov, 2015 Morbid obesity E66.01 and Ge neral medical exam Z00.00 [facility] [place] [address] [id number] [address] [place] [id number] 19 Nov, 2015 Morbid obesity E66.01 and Ge neral medical exam Z00.00 [facility] [place] [address] [id number] [address] [place] [id number] 12 Nov, 2015 General medical exam Z00.00 ; Lumbago M54.5 ; History of back surgery Z98.89 ; Bilateral low back pain with sciatica, sciatica laterality unspecified M54.40 ; Radiculopathy, thoracic region M54.14 ; Radiculopathy of lumbosacral region M54.17 and Bilateral thoracic back pain M54.6 [facility] [place] [address] [facility] [id number] [address] [place] [id number] 12 Nov, 2015 General medical exam Z00.00 ; Morbid obesity E66.01 ; Substance abuse F19.10 ; Tobacco abuse Z72.0 ; Tobacco abuse counseling Z71.6 ; Lumbago M54.5 ; History of back surgery Z98.89 and Right upper quadrant pain R10.11 [facility] [place] [address] [facility] [id number] [address] [place] [id number] 14 Feb, 2015 [facility] [place] [address] [facility] [id number] [address] [place] [id number] 13 Feb, 2015 [facility] [place] [address] [id number] [address] [place] [id number] Jan, [facility] [place] [address] [facility] [id number] [address] [place] [id number] 19 Jan, 2015 [facility] [place] [address] [facility] [id number] [address] [place] [id number] 12 Jan, 2015 [facility] [place] [address] [facility] [id number] [address] [place] [phone] Jan, [facility] [address] [id number] [address] [place] [address], [place] [id number] Oct, [facility] [address] [id number] [address] [place] [address], [place] [id number] Oct, [facility] [address] [id number] [address] [place] [address], [place] [id number] Sep, [facility] [address] [id number] [address] [place] [address], [place] [id number] Sep, [facility] [address] [id number] [address] [place] [address], [place] [id number] Jul, [facility] [address] [id number] [address] [place] [address], [place] [id number] Jul, [facility] [address] [id number] [address] [place] [address], [place] [id number] May, [facility] [address] [id number] [address] [place] [address], [place] [id number] May, [facility] [address] [id number] [address] [place] [address], [place] [id number] May, [facility] [address] [id number] [address] [place] [address], [place] [id number] May, [facility] [address] [id number] [address] [place] [address], [place] [id number] Apr, [facility] [address] [id number] [address] [place] [address], [place] [id number] Apr, [facility] [address] [id number] [address] [place] [address], [place] [id number] Apr, [facility] [address] [id number] [address] [place] [address], [place] [id number] Apr, [facility] [address] [id number] [address] [place] [address], [place] [id number] Apr, [facility] [address] [id number] [address] [place] [phone] 19 Apr, 2014 [facility] [place] [address] [id number] [address] [place] [id number] 18 Apr, 2014 [facility] [place] [address] [id number] [address] [place] [id number] 16 Apr, 2014 [facility] [place] [address] [facility] [id number] [address] [place] [id number] 15 Apr, 2014 [facility] [place] [address] [facility] [id number] [address] [place] [id number] 13 Apr, 2014 [facility] [place] [address] [facility] [id number] [address] [place] [id number] 12 Apr, 2014 [facility] [place] [address] [facility] [id number] [address] [place] [id number] 12 Apr, 2014 IMMUNIZATIONS No Known Immunizations SOCIAL HISTORY Never Assessed REASON FOR VISIT EMR-[facility] [place]AN OF CARE VITAL SIGNS MEDICATIONS Unknown [...] 2009- [facility] 2010 and [facility]- [facility] 06/2010, 01/2011, 01/2012 Surgical History Right knee scope 10/24/2016 Hospitalization History Surgery(s)/Childbirth(s) only Hospitalization History CHF/ Pneumonia- Post Delivery of Chi ld Hospitalization History Pain r/t back surgery- hospitalized for pain control x3 Hospitalization History [facility] in [place] 02/2016 Hospitalization History [facility] after 3rd back surgery
--- OUTSIDE RECORDS SUMMARY | 2020-05-09 10:30 | XMS REPORT ---
Author Author MANAN Larissaflorina ALBARRAN Organization [facility] [place] Address [address] [place] [address] Care Team Providers Care Paint Preparer Name Role Phone MANANCAMILLA AVERYY Unavailable PROBLEMS Type Condition ICD9-CM Code YOH02-PY Code Onset Dates Condition S tatus SNOMED Code Problem H/O bursectomy Z98.890 Active 57022 5003 Problem Substance abuse F19.10 Active 6621 4007 Problem Tobacco abuse Z72.0 Active 084619 05 Problem Onychomycosis B35.1 Active 220085 008 Problem PCOS (polycystic ovarian syndrome) E28.2 Active 89075120 Problem PMS (premenstrual syndrome) N94.3 Ac tive 79481503 Problem Pre-diabetes R73.09 Active 7012903 Problem BMI 40.0-44.9, adult Z68.41 Active 784906682 Problem Reactive depression F32.9 Active 28976347 Problem Cannabis use disorder, severe, dependence F12.20 Active 36011171 Problem Methamphetamine use F15.10 Active 062024558 Problem Lumbar radiculopathy M54.16 Active 559125747 Problem Lumbar disc disease with radiculopathy M51.16 Active 610444565 Problem Anxiety F41.9 Active 92333741 Problem Substance induced mood disorder F19.94 Active 248648097 Problem Methamphetamine use disorder, severe, 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 Active 52426288 Problem Tobacco use disorder, moderate, dependence F17.200 Active 30351877 Problem Opioid use disorder, severe, in sustained remission F11.21 Active 46044554 ALLERGIES No Information ENCOUNTERS Encounter Location Date Diagnosis [facility] [place] [address] [facility] [id number] [address] [place] [phone] Jan, [facility] [place] [address] [facility] [id number] [address] [place] [address] Dec, [facility] [place] [address] [address] Aug, Lumbar disc disease with rad iculopathy M51.16 [place] [address] [address] Jul, [place] [address] [address] Jul, Lumbar radiculopathy M54.16 [place] [address] [address] March, Lumbar radiculopathy M54.16 and Pre-diabetes R73.09 [facility] [place] [address] [address] Jan, Epigastric pain R10.13 and M ethamphetamine use F15.[address] [address] Dec, Methamphetamine use disorder , severe, 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 ; Opioid use disorder, severe, in sustained remission F11.21 ; Tobacco use disorder, moderate, dependence F17.200 ; Cannabis use disorder, severe, dependence F12.20 and Substance induced mood disorder F19.94 [place] [address] [address] Nov, BMI 40.0-44.9, adult Z68.41 ; Lumbar radiculopathy M54.16 and Reactive depression F32.9 [place] [address] [address] [place] [id number] [address] [place] [address] Sep, Strain of lumbar region, ini tial encounter S39.012A and BMI 40.0- 44.9, adult Z68.41 [facility] [place] [address] [address] Sep, Acute left-sided low back pa in with left-sided sciatica M54.42 [place] [address] [address] Sep, [facility] [place] [address] [facility] [id number] [address] [place] [address] Sep, Lumbago M54.5 and Anxiety F4 1.9 [facility] [place] [address] [facility] [id number] [address] [place] [address] Jul, Tobacco abuse Z72.0 ; Anxiet y F41.9 and Bilateral thoracic back pain M54.6 [facility] [place] [address] [place] [id number] [address] [place] [address] Jul, [facility] [place] [address] [facility] [id number] [address] [place] [address] Jun, Lumbago M54.5 [facility] [place] [address] [place] [id number] [address] [place] [address] Apr, Annual physical exam Z00.00 ; Morbid obesity E66.01 ; Lumbago M54.5 ; History of back surgery Z98.89 ; Pre-diabetes R73.09 ; PCOS (polycystic ovarian syndrome) E28.2 and Bilateral thoracic back pain M54.6 [facility] [place] [id number] [place] [address] Apr, [facility] [place] [address] [place] [id number] [address] [place] [address] Jan, Annual physical exam Z00.00 ; PCOS (polycystic ovarian syndrome) E28.2 ; Substance abuse F19.10 and Pre-diabetes R73.09 [facility] [address] [facility] [id number] [address] [place] [address] Nov, Acute non-recurrent pansinus itis J01.40 [facility] [place] [address] [facility] [id number] [address] [place] [address] Jul, [facility] [place] [address] [place] [id number] [address] [place] [address] Jul, [facility] [place] [address] [place] [id number] [address] [place] [address] Jul, Medial meniscus tear, right, subsequent encounter S83.241D [facility] [address] [id number] [address] [place] [id number] Jun, Dental examination Z01.20 [facility] [address] [id number] [address] [place] [id number] Jun, Dental examination Z01.20 [facility] [place] [address] [facility] [id number] [address] [place] [address] May, Chondromalacia patellae, rig ht knee M22.41 [place] [address] [address] [facility] [id number] [address] [place] [address] May, Bilateral thoracic back pain M54.6 ; Substance abuse F19.10 and Tobacco abuse Z72.0 [place] [address] [address] [place] [id number] [address] [place] [address] Apr, Bilateral low back pain with sciatica, sciatica laterality unspecified M54.40 [facility] [place] [address] [place] [id number] [address] [place] [address] Apr, Bilateral low back pain with sciatica, sciatica laterality unspecified M54.40 [facility] [place] [address] [place] [id number] [address] [place] [address] Apr, Acute right-sided low back p ain with right-sided sciatica M54.41 [place] [address] [address] [place] [id number] [address] [place] [address] Apr, PMS (premenstrual syndrome) N94.3 ; Tobacco abuse counseling Z71.6 and Right knee pain, unspecified chronicity M25.561 [place] [address] [address] [place] [id number] [address] [place] [address] March, Well woman exam Z01.419 [facility] [place] [address] [facility] [id number] [address] [place] [address] Feb, Methamphetamine addiction F1 5.20 and Folliculitis L73.9 [place] [address] [id number] [address] [place] [address] Feb, [facility] [place] [address] [facility] [id number] [address] [place] [address] Jan, Well woman exam Z01.419 ; Ro utine gynecological examination V72.31 and Substance abuse F19.10 [facility] [address] [facility] [id number] [address] [place] [address] Jan, Sore throat J02.9 and Acute bronchitis J20.9 [facility] [address] [facility] [id number] [address] [place] [address] [id number] Jan, Dental caries K02.9 [facility] [place] [address] [id number] [address] [place] [address] Jan, Morbid obesity E66.01 ; Pre- diabetes R73.09 and Onychomycosis B35.1 [facility] [address] [id number] [address] [place] [address] Jan, Immunization due Z23 [facility] [address] [facility] [id number] [place] [id number] 15 Jan, 2016 Encounter for dental examina tion Z01.20 [facility] [place] [address] [facility] [id number] [address] [place] [phone] 12 Dec, 2015 Sinusitis, acute maxillary J 01.00 [facility] [place] [address] [facility] [id number] [address] [place] [address] Nov, [facility] [place] [address] [id number] [address] [place] [address] Nov, [facility] [place] [address] [facility] [id number] [address] [place] [phone] Nov, [facility] [place] [address] [facility] [id number] [address] [place] [address] Nov, [facility] [place] [address] [facility] [id number] [address] [place] [address] Nov, Bilateral low back pain with sciatica, sciatica laterality unspecified M54.40 ; History of back surgery Z98.89 ; Radiculopathy, thoracic region M54.14 ; Radiculopathy of lumbosacral region M54.17 and Bilateral thoracic back pain M54.6 [facility] [place] [address] [id number] [address] [place] [address] Nov, Morbid obesity E66.01 and Ge neral medical exam Z00.00 [facility] [place] [address] [id number] [address] [place] [address] Nov, Morbid obesity E66.01 and Ge neral medical exam Z00.00 [place] [address] [address] [facility] [id number] [address] [place] [address] Nov, General medical exam Z00.00 ; Lumbago M54.5 ; History of back surgery Z98.89 ; Bilateral low back pain with sciatica, sciatica laterality unspecified M54.40 ; Radiculopathy, thoracic region M54.14 ; Radiculopathy of lumbosacral region M54.17 and Bilateral thoracic back pain M54.6 [place] [address] [address] [facility] [id number] [address] [place] [address] Nov, General medical exam Z00.00 ; Morbid obesity E66.01 ; Substance abuse F19.10 ; Tobacco abuse Z72.0 ; Tobacco abuse counseling Z71.6 ; Lumbago M54.5 ; History of back surgery Z98.89 and Right upper quadrant pain R10.11 [place] [address] [id number] [address] [place] [phone] Feb, [place] [address] [address] [facility] [id number] [address] [place] [address] Feb, [facility] [place] [address] [facility] [id number] [address] [place] [phone] Jan, [place] [id number] [facility] [id number] [address] [place] [phone] Jan, [facility] [address] [id number] [address] [place] [address], [place] [address] Jan, [facility] [address] [id number] [address] [place] [address], [place] [address] Jan, [facility] [address] [id number] [address] [place] [address], [place] [address] Oct, [facility] [address] [id number] [address] [place] [address], [place] [address] Oct, [facility] [address] [id number] [address] [place] [address], [place] [address] Sep, [facility] [address] [id number] [address] [place] [address], [place] [address] Sep, [facility] [address] [id number] [address] [place] [address], [place] [address] Jul, [facility] [address] [id number] [address] [place] [address], [place] [address] Jul, [facility] [address] [id number] [address] [place] [address], [place] [address] May, [facility] [address] [id number] [address] [place] [address], [place] [address] May, [facility] [address] [id number] [address] [place] [address], [place] [address] May, [facility] [address] [id number] [address] [place] [address], [place] [address] May, [facility] [address] [id number] [address] [place] [address], [place] [address] Apr, [facility] [address] [id number] [address] [place] [address], [place] [address] Apr, [facility] [address] [id number] [address] [place] [address], [place] [address] Apr, [facility] [address] [id number] [address] [place] [phone] 20 Apr, 2014 [facility] [place] [address] [id number] [address] [place] [phone] 19 Apr, 2014 [facility] [place] [address] [id number] [address] [place] [phone] 19 Apr, 2014 [facility] [place] [address] [id number] [address] [place] [phone] 18 Apr, 2014 [facility] [place] [address] [id number] [address] [place] [id number] 16 Apr, 2014 [facility] [place] [address] [id number] [address] [place] [address] 15 Apr, 2014 [facility] [place] [address] [id number] [address] [place] [phone] 13 Apr, 2014 [facility] [place] [address] [id number] [address] [place] [phone] Apr, [facility] [place] [address] [id number] [address] [place] [address] 12 Apr, 2014 IMMUNIZATIONS No Known Immunizations [...] 2009- [facility] 2010 and 2011- [facility] 06/2010, 01/2011, 01/2012 Surgical History Right knee scope 10/24/2016 Hospitalization History Surgery(s)/Childbirth(s) only Hospitalization History CHF/ Pneumonia- Post Delivery of Chi ld Hospitalization History Pain r/t back surgery- hospitalized for pain control x3 Hospitalization History [facility] in [place] 02/2016 Hospitalization History [facility] after 3rd back surgery
--- OUTSIDE RECORDS SUMMARY | 2020-05-09 10:30 | XMS REPORT ---
Author Author Larissa Burciaga Organization [facility] Address [address] [place] [address] Care Team Providers Care Senior Ios Developer Name Role Phone FLORENCIO Burciaga Unavailable PROBLEMS Type Condition ICD9-CM Code [id number] Code Onset Dates Condition S tatus SNOMED Code Problem H/O bursectomy Z98.890 Active 83751 5003 Problem Substance abuse F19.10 Active 6621 4007 Problem Tobacco abuse Z72.0 Active 948046 05 Problem Onychomycosis B35.1 Active 264634 008 Problem PCOS (polycystic ovarian syndrome) E28.2 Active 51162302 Problem PMS (premenstrual syndrome) N94.3 Ac tive 03671198 Problem Pre-diabetes R73.09 Active 6949015 Problem BMI 40.0-44.9, adult Z68.41 Active 543317144 Problem Reactive depression F32.9 Active 39154358 Problem Cannabis use disorder, severe, dependence F12.20 Active 33557567 Problem Methamphetamine use F15.10 Active 325825366 Problem Lumbar radiculopathy M54.16 Active 608862526 Problem Lumbar disc disease with radiculopathy M51.16 Active 058447710 Problem Anxiety F41.9 Active 74388233 Problem Substance induced mood disorder F19.94 Active 280288065 Problem Methamphetamine use disorder, severe, 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 Active 97166933 Problem Tobacco use disorder, moderate, dependence F17.200 Active 31433408 Problem Opioid use disorder, severe, in sustained remission F11.21 Active 35435145 ALLERGIES No Information ENCOUNTERS Encounter Location Date Diagnosis [facility] [address] [facility] [id number] [address] [place] [phone] Jan, [facility] [address] [facility] [id number] [address] [place] [phone] Dec, [place] [address] [address] Aug, Lumbar disc disease with rad iculopathy M51.16 [place] [address] [address] Jul, [place] [address] [address] Jul, Lumbar radiculopathy M54.16 [place] [address] [address] March, Lumbar radiculopathy M54.16 and Pre-diabetes R73.09 [facility] [place] [address] [address] Jan, Epigastric pain R10.13 and M ethamphetamine use F15.[address] [address] Dec, Methamphetamine use disorder , severe, 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 ; Opioid use disorder, severe, in sustained remission F11.21 ; Tobacco use disorder, moderate, dependence F17.200 ; Cannabis use disorder, severe, dependence F12.20 and Substance induced mood disorder F19.94 [place] [address] [address] Nov, BMI 40.0-44.9, adult Z68.41 ; Lumbar radiculopathy M54.16 and Reactive depression F32.[address] [address] Sep, Strain of lumbar region, ini tial encounter S39.012A and BMI 40.0- 44.9, adult Z68.41 [facility] [place] [address] [address] Sep, Acute left-sided low back pa in with left-sided sciatica M54.42 [place] [address] [address] Sep, [facility] [address] [facility] [id number] [address] [place] [phone] Sep, Lumbago M54.5 and Anxiety F4 1.9 [facility] [address] [facility] [id number] [address] [place] [phone] Jul, Tobacco abuse Z72.0 ; Anxiet y F41.9 and Bilateral thoracic back pain M54.6 [facility] [address] [facility] [id number] [address] [place] [phone] Jul, [facility] [address] [facility] [id number] [address] [place] [phone] Jun, Lumbago M54.5 [facility] [address] [place] [id number] [address] [place] [phone] Apr, Annual physical exam Z00.00 ; Morbid obesity E66.01 ; Lumbago M54.5 ; History of back surgery Z98.89 ; Pre-diabetes R73.09 ; PCOS (polycystic ovarian syndrome) E28.2 and Bilateral thoracic back pain M54.6 [facility] [address] [place] [id number] [address] [place] [phone] Apr, [facility] [address] [place] [id number] [address] [place] [phone] Jan, Annual physical exam Z00.00 ; PCOS (polycystic ovarian syndrome) E28.2 ; Substance abuse F19.10 and Pre-diabetes R73.09 [facility] [address] [facility] [id number] [address] [place] [phone] Nov, Acute non-recurrent pansinus itis J01.40 [facility] [address] [facility] [id number] [address] [place] [phone] Jul, [facility] [address] [place] [id number] [address] [place] [phone] Jul, [facility] [address] [place] [id number] [address] [place] [phone] Jul, Medial meniscus tear, right, subsequent encounter S83.241D [facility] [address] [id number] [address] [place] [phone] Jun, Dental examination Z01.20 [facility] [address] [id number] [address] [place] [phone] Jun, Dental examination Z01.20 [facility] [address] [facility] [id number] [address] [place] [phone] May, Chondromalacia patellae, rig ht knee M22.41 [place] [address] [place] [id number] [address] [place] [phone] May, Bilateral thoracic back pain M54.6 ; Substance abuse F19.10 and Tobacco abuse Z72.0 [place] [address] [place] [phone] Apr, Bilateral low back pain with sciatica, sciatica laterality unspecified M54.40 [facility] [address] [place] [address] Apr, Bilateral low back pain with sciatica, sciatica laterality unspecified M54.40 [facility] [address] [place] [id number] [address] [place] [phone] Apr, Acute right-sided low back p ain with right-sided sciatica M54.41 [place] [address] [place] [phone] Apr, PMS (premenstrual syndrome) N94.3 ; Tobacco abuse counseling Z71.6 and Right knee pain, unspecified chronicity M25.561 [place] [address] [place] [id number] [address] [place] [phone] March, Well woman exam Z01.419 [facility] [address] [place] [id number] [address] [place] [phone] Feb, Methamphetamine addiction F1 5.20 and Folliculitis L73.9 [facility] [address] [id number] [address] [place] [phone] Feb, [facility] [address] [id number] [address] [place] [phone] Jan, Well woman exam Z01.419 ; Ro utine gynecological examination V72.31 and Substance abuse F19.10 [facility] [address] [id number] [address] [place] [phone] Jan, Sore throat J02.9 and Acute bronchitis J20.9 [facility] [address] [id number] [address] [place] [id number] Jan, Dental caries K02.9 [facility] [address] [id number] [address] [place] [phone] Jan, Morbid obesity E66.01 ; Pre- diabetes R73.09 and Onychomycosis B35.1 [facility] [address] [id number] [address] [place] [phone] Jan, Immunization due Z23 [facility] [address] [facility] [id number] [place] [phone] 15 Jan, 2016 Encounter for dental examina tion Z01.20 [facility] [address] [facility] [id number] [address] [place] [phone] Dec, Sinusitis, acute maxillary J 01.00 [facility] [address] [id number] [address] [place] [phone] Nov, [facility] [address] [id number] [address] [place] [phone] Nov, [facility] [address] [facility] [id number] [address] [place] [phone] Nov, [facility] [address] [facility] [id number] [address] [place] [phone] Nov, [facility] [address] [facility] [id number] [address] [place] [phone] Nov, Bilateral low back pain with sciatica, sciatica laterality unspecified M54.40 ; History of back surgery Z98.89 ; Radiculopathy, thoracic region M54.14 ; Radiculopathy of lumbosacral region M54.17 and Bilateral thoracic back pain M54.6 [facility] [address] [facility] [id number] [address] [place] [phone] Nov, Morbid obesity E66.01 and Ge neral medical exam Z00.00 [facility] [address] [id number] [address] [place] [phone] Nov, Morbid obesity E66.01 and Ge neral medical exam Z00.00 [place] [address] [facility] [id number] [address] [place] [phone] Nov, General medical exam Z00.00 ; Lumbago M54.5 ; History of back surgery Z98.89 ; Bilateral low back pain with sciatica, sciatica laterality unspecified M54.40 ; Radiculopathy, thoracic region M54.14 ; Radiculopathy of lumbosacral region M54.17 and Bilateral thoracic back pain M54.6 [place] [address] [facility] [id number] [address] [place] [phone] Nov, General medical exam Z00.00 ; Morbid obesity E66.01 ; Substance abuse F19.10 ; Tobacco abuse Z72.0 ; Tobacco abuse counseling Z71.6 ; Lumbago M54.5 ; History of back surgery Z98.89 and Right upper quadrant pain R10.11 [place] [address] [id number] [address] [place] [phone] Feb, [place] [address] [facility] [id number] [address] [place] [phone] Feb, [facility] [address] [facility] [id number] [address] [place] [phone] Jan, [place] [address] [facility] [id number] [address] [place] [phone] Jan, [facility] [address] [id number] [address] [place] [address], [place] [address] Jan, [facility] [address] [id number] [address] [place] [address], [place] [address] Jan, [facility] [address] [id number] [address] [place] [address], [place] [address] Oct, [facility] [address] [id number] [address] [place] [address], [place] [address] Oct, [facility] [address] [id number] [address] [place] [address], [place] [address] Sep, [facility] [address] [id number] [address] [place] [address], [place] [address] Sep, [facility] [address] [id number] [address] [place] [address], [place] [address] Jul, [facility] [address] [id number] [address] [place] [address], [place] [address] Jul, [facility] [address] [id number] [address] [place] [address], [place] [address] May, [facility] [address] [id number] [address] [place] [address], [place] [address] May, [facility] [address] [id number] [address] [place] [address], [place] [address] May, [facility] [address] [id number] [address] [place] [address], [place] [address] May, [facility] [address] [id number] [address] [place] [address], [place] [address] Apr, [facility] [address] [id number] [address] [place] [address], [place] [address] Apr, [facility] [address] [id number] [address] [place] [address], [place] [address] Apr, [facility] [address] [id number] [address] [place] [phone] 20 Apr, 2014 [facility] [address] [id number] [address] [place] [phone] 19 Apr, 2014 [facility] [address] [id number] [address] [place] [phone] 19 Apr, 2014 [facility] [address] [id number] [address] [place] [phone] 18 Apr, 2014 [facility] [address] [id number] [address] [place] [phone] 16 Apr, 2014 [facility] [address] [id number] [address] [place] [phone] 15 Apr, 2014 [facility] [address] [id number] [address] [place] [phone] 13 Apr, 2014 [facility] [address] [id number] [address] [place] [phone] 12 Apr, 2014 [facility] [address] [id number] [address] [place] [phone] 12 Apr, 2014 IMMUNIZATIONS No Known Immunizations [...] 2009- [facility] 2010 and 2011- [facility] 06/2010, 01/2011, 01/2012 Surgical History Right knee scope 10/24/2016 Hospitalization History Surgery(s)/Childbirth(s) only Hospitalization History CHF/ Pneumonia- Post Delivery of Chi ld Hospitalization History Pain r/t back surgery- hospitalized for pain control x3 Hospitalization History [facility] in [place] 02/2016 Hospitalization History MSSA after 3rd back surgery
--- OUTSIDE RECORDS SUMMARY | 2020-05-09 10:30 | XMS REPORT ---
Author Author Larissa POLLACK Organization [facility] Address [address] [place] [address] Care Team Providers Care Cooling Room Attendant Name Role Phone KIMANI POLLACK Unavailable PROBLEMS Type Condition ICD9-CM Code DST23-NQ Code Onset Dates Condition S tatus SNOMED Code Problem H/O bursectomy Z98.890 Active 30350 5003 Problem Substance abuse F19.10 Active 6621 4007 Problem Tobacco abuse Z72.0 Active 905749 05 Problem Onychomycosis B35.1 Active 067165 008 Problem PCOS (polycystic ovarian syndrome) E28.2 Active 47593578 Problem PMS (premenstrual syndrome) N94.3 Ac tive 87511150 Problem Pre-diabetes R73.09 Active 0861135 Problem BMI 40.0-44.9, adult Z68.41 Active 863142695 Problem Reactive depression F32.9 Active 49967417 Problem Cannabis use disorder, severe, dependence F12.20 Active 23502521 Problem Methamphetamine use F15.10 Active 419786918 Problem Lumbar radiculopathy M54.16 Active 828271922 Problem Lumbar disc disease with radiculopathy M51.16 Active 427223178 Problem Anxiety F41.9 Active 04739084 Problem Substance induced mood disorder F19.94 Active 368033736 Problem Methamphetamine use disorder, severe, 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 Active 19646332 Problem Tobacco use disorder, moderate, dependence F17.200 Active 88584418 Problem Opioid use disorder, severe, in sustained remission F11.21 Active 83753913 ALLERGIES No Information ENCOUNTERS Encounter Location Date Diagnosis [facility] [address] [facility] [id number] [address] [place] [phone] Jan, [facility] [address] [facility] [id number] [address] [place] [address] Dec, [facility] [address] [address] Aug, Lumbar disc disease with rad iculopathy M51.16 [place] [address] [address] Jul, [place] [address] [address] Jul, Lumbar radiculopathy M54.16 [place] [address] [address] March, Lumbar radiculopathy M54.16 and Pre-diabetes R73.09 [facility] [place] [address] [address] Jan, Epigastric pain R10.13 and M ethamphetamine use F15.[address] [address] Dec, Methamphetamine use disorder , severe, 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 ; Opioid use disorder, severe, in sustained remission F11.21 ; Tobacco use disorder, moderate, dependence F17.200 ; Cannabis use disorder, severe, dependence F12.20 and Substance induced mood disorder F19.94 [place] [address] [address] Nov, BMI 40.0-44.9, adult Z68.41 ; Lumbar radiculopathy M54.16 and Reactive depression F32.9 [place] [address] [address] Sep, Strain of lumbar region, ini tial encounter S39.012A and BMI 40.0- 44.9, adult Z68.41 [facility] [place] [address] [address] Sep, Acute left-sided low back pa in with left-sided sciatica M54.42 [place] [address] [address] Sep, [facility] [address] [place] [id number] [address] [place] [address] Sep, Lumbago M54.5 and Anxiety F4 1.9 [facility] [address] [facility] [id number] [address] [place] [address] Jul, Tobacco abuse Z72.0 ; Anxiet y F41.9 and Bilateral thoracic back pain M54.6 [facility] [address] [place] [id number] [place] [address] Jul, [facility] [address] [place] [id number] [place] [address] Jun, Lumbago M54.5 [facility] [address] [place] [id number] [place] [address] Apr, Annual physical exam Z00.00 ; Morbid obesity E66.01 ; Lumbago M54.5 ; History of back surgery Z98.89 ; Pre-diabetes R73.09 ; PCOS (polycystic ovarian syndrome) E28.2 and Bilateral thoracic back pain M54.6 [facility] [address] [address] Apr, [facility] [address] [address] Jan, Annual physical exam Z00.00 ; PCOS (polycystic ovarian syndrome) E28.2 ; Substance abuse F19.10 and Pre-diabetes R73.09 [facility] [address] [place] [id number] [place] [address] Nov, Acute non-recurrent pansinus itis J01.40 [facility] [address] [place] [id number] [address] [place] [phone] Jul, [facility] [address] [place] [id number] [address] [place] [address] Jul, [facility] [address] [address] Jul, Medial meniscus tear, right, subsequent encounter S83.241D [facility] [address] [id number] [address] [place] [id number] Jun, Dental examination Z01.20 [facility] [address] [id number] [address] [place] [id number] Jun, Dental examination Z01.20 [facility] [address] [facility] [id number] [address] [place] [address] May, Chondromalacia patellae, rig ht knee M22.41 [place] [address] [facility] [id number] [address] [place] [phone] May, Bilateral thoracic back pain M54.6 ; Substance abuse F19.10 and Tobacco abuse Z72.0 [place] [address] [place] [id number] [address] [place] [address] Apr, Bilateral low back pain with sciatica, sciatica laterality unspecified M54.40 [place] [address] [facility] [id number] [address] [place] [address] Apr, Bilateral low back pain with sciatica, sciatica laterality unspecified M54.40 [place] [address] [place] [id number] [address] [place] [address] Apr, Acute right-sided low back p ain with right-sided sciatica M54.41 [place] [address] [place] [id number] [address] [place] [address] Apr, PMS (premenstrual syndrome) N94.3 ; Tobacco abuse counseling Z71.6 and Right knee pain, unspecified chronicity M25.561 [place] [address] [place] [id number] [address] [place] [address] March, Well woman exam Z01.419 [place] [address] [facility] [id number] [address] [place] [address] Feb, Methamphetamine addiction F1 5.20 and Folliculitis L73.9 [place] [address] [id number] [address] [place] [address] Feb, [facility] [address] [facility] [id number] [address] [place] [phone] Jan, Well woman exam Z01.419 ; Ro utine gynecological examination V72.31 and Substance abuse F19.10 [facility] [address] [id number] [address] [place] [phone] Jan, Sore throat J02.9 and Acute bronchitis J20.9 [facility] [address] [id number] [address] [place] [phone] Jan, Dental caries K02.9 [facility] [address] [id number] [address] [place] [address] Jan, Morbid obesity E66.01 ; Pre- diabetes R73.09 and Onychomycosis B35.1 [facility] [address] [id number] [address] [place] [phone] Jan, Immunization due Z23 [facility] [address] [facility] [id number] [place] [phone] Jan, Encounter for dental examina tion Z01.20 [facility] [address] [facility] [id number] [address] [place] [phone] Dec, Sinusitis, acute maxillary J 01.00 [facility] [address] [facility] [id number] [address] [place] [phone] Nov, [facility] [address] [id number] [address] [place] [phone] Nov, [facility] [address] [facility] [id number] [address] [place] [phone] Nov, [facility] [address] [facility] [id number] [address] [place] [phone] Nov, [facility] [address] [facility] [id number] [address] [place] [phone] Nov, Bilateral low back pain with sciatica, sciatica laterality unspecified M54.40 ; History of back surgery Z98.89 ; Radiculopathy, thoracic region M54.14 ; Radiculopathy of lumbosacral region M54.17 and Bilateral thoracic back pain M54.6 [facility] [address] [facility] [id number] [address] [place] [phone] Nov, Morbid obesity E66.01 and Ge neral medical exam Z00.00 [facility] [address] [id number] [address] [place] [phone] Nov, Morbid obesity E66.01 and Ge neral medical exam Z00.00 [place] [address] [facility] [id number] [address] [place] [phone] Nov, General medical exam Z00.00 ; Lumbago M54.5 ; History of back surgery Z98.89 ; Bilateral low back pain with sciatica, sciatica laterality unspecified M54.40 ; Radiculopathy, thoracic region M54.14 ; Radiculopathy of lumbosacral region M54.17 and Bilateral thoracic back pain M54.6 [place] [address] [facility] [id number] [address] [place] [phone] Nov, General medical exam Z00.00 ; Morbid obesity E66.01 ; Substance abuse F19.10 ; Tobacco abuse Z72.0 ; Tobacco abuse counseling Z71.6 ; Lumbago M54.5 ; History of back surgery Z98.89 and Right upper quadrant pain R10.11 [facility] [address] [id number] [address] [place] [phone] Feb, [place] [address] [facility] [id number] [address] [place] [phone] Feb, [facility] [address] [facility] [id number] [address] [place] [phone] Jan, [place] [address] [facility] [id number] [address] [place] [phone] Jan, [facility] [address] [id number] [address] [place] [address], [place] [address] Jan, [facility] [address] [id number] [address] [place] [address], [place] [address] Jan, [facility] [address] [id number] [address] [place] [address], [place] [address] Oct, [facility] [address] [id number] [address] [place] [address], [place] [address] Oct, [facility] [address] [id number] [address] [place] [address], [place] [address] Sep, [facility] [address] [id number] [address] [place] [address], [place] [address] Sep, [facility] [address] [id number] [address] [place] [address], [place] [address] Jul, [facility] [address] [id number] [address] [place] [address], [place] [address] Jul, [facility] [address] [id number] [address] [place] [address], [place] [address] May, [facility] [address] [id number] [address] [place] [address], [place] [address] May, [facility] [address] [id number] [address] [place] [address], [place] [address] May, [facility] [address] [id number] [address] [place] [address], [place] [address] May, [facility] [address] [id number] [address] [place] [address], [place] [address] Apr, [facility] [address] [id number] [address] [place] [address], [place] [address] Apr, [facility] [address] [id number] [address] [place] [address], [place] [address] Apr, [facility] [address] [id number] [address] [place] [address], [place] [address] 20 Apr, 2014 [facility] [address] [id number] [address] [place] [phone] 19 Apr, 2014 [facility] [address] [id number] [address] [place] [phone] 19 Apr, 2014 [facility] [address] [id number] [address] [place] [phone] 18 Apr, 2014 [facility] [address] [id number] [address] [place] [phone] 16 Apr, 2014 [facility] [address] [id number] [address] [place] [phone] 15 Apr, 2014 [facility] [address] [id number] [address] [place] [phone] 13 Apr, 2014 [facility] [address] [id number] [address] [place] [phone] Apr, [facility] [address] [id number] [address] [place] [phone] Apr, IMMUNIZATIONS No Known Immunizations SOCIAL HISTORY Never Assessed REASON FOR VISIT FMLA PLAN OF CARE VITAL SIGNS MEDICATIONS Unknown [...] 2009- [facility] 2010 and 2011- [facility] 06/2010, 01/2011, 01/2012 Surgical History Right knee scope 10/24/2016 Hospitalization History Surgery(s)/Childbirth(s) only Hospitalization History CHF/ Pneumonia- Post Delivery of Chi ld Hospitalization History Pain r/t back surgery- hospitalized for pain control x3 Hospitalization History [facility] in [place] 02/2016 Hospitalization History [facility] after 3rd back surgery
--- OUTSIDE RECORDS SUMMARY | 2020-05-09 10:30 | XMS REPORT ---
Author Author RoshanLarissa Doctor Organization [facility] Address Unknown Phone Unavailable Care Team Providers Care Sheep Herder Name Role Phone Migration, Doctor Unavailable Unavailable PROBLEMS Type Condition ICD9-CM Code [id number] Code Onset Dates Condition S tatus SNOMED Code Problem H/O bursectomy Z98.890 Active 59935 5003 Problem Substance abuse F19.10 Active 6621 4007 Problem Tobacco abuse Z72.0 Active 471048 05 Problem Onychomycosis B35.1 Active 737722 008 Problem PCOS (polycystic ovarian syndrome) E28.2 Active 13323817 Problem PMS (premenstrual syndrome) N94.3 Ac tive 57145289 Problem Pre-diabetes R73.09 Active 3041637 Problem BMI 40.0-44.9, adult Z68.41 Active 677651961 Problem Reactive depression F32.9 Active 41272908 Problem Cannabis use disorder, severe, dependence F12.20 Active 98212945 Problem Methamphetamine use F15.10 Active 940471883 Problem Lumbar radiculopathy M54.16 Active 035694511 Problem Lumbar disc disease with radiculopathy M51.16 Active 624005557 Problem Anxiety F41.9 Active 38717897 Problem Substance induced mood disorder F19.94 Active 115665183 Problem Methamphetamine use disorder, severe, 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 Active 69635724 Problem Tobacco use disorder, moderate, dependence F17.200 Active 83130478 Problem Opioid use disorder, severe, in sustained remission F11.21 Active 30518367 ALLERGIES No Information ENCOUNTERS Encounter Location Date Diagnosis [facility] [address] [facility] [place] [facility] [id number] [address] [place] [id number] Jan, [facility] [address] [facility] [place] [id number] [address] [place] [phone] Dec, [facility] [address] [facility] [place] [id number] [address] [place] [id number] Aug, Lumbar disc disease with rad iculopathy M51.16 [facility] [address] [facility] [place] [facility] [id number] [address] [place] [phone] Jul, [facility] [address] [facility] [place] [id number] [address] [place] [id number] Jul, Lumbar radiculopathy M54.16 [place] [address] [place] [id number] [address] [place] [id number] March, Lumbar radiculopathy M54.16 and Pre-diabetes R73.09 [facility] [address] [facility] [place] [id number] [address] [place] [phone] Jan, Epigastric pain R10.13 and M ethamphetamine use F15.10 [place] [address] [place] [id number] [place] [phone] Dec, Methamphetamine use disorder , severe, 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 ; Opioid use disorder, severe, in sustained remission F11.21 ; Tobacco use disorder, moderate, dependence F17.200 ; Cannabis use disorder, severe, dependence F12.20 and Substance induced mood disorder F19.94 [place] [address] [place] [id number] [place] [phone] Nov, BMI 40.0-44.9, adult Z68.41 ; Lumbar radiculopathy M54.16 and Reactive depression F32.9 [place] [address] [place] [id number] [address] [place] [id number] Sep, Strain of lumbar region, ini tial encounter S39.012A and BMI 40.0- 44.9, adult Z68.41 [facility] [address] [place] [id number] [address] [place] [id number] Sep, Acute left-sided low back pa in with left-sided sciatica M54.42 [place] [address] [place] [id number] [address] [place] [phone] Sep, [place] [address] [address] 07 Sep, 2017 Lumbago M54.5 and Anxiety F4 1.9 [facility] [address] [address] Jul, Tobacco abuse Z72.0 ; Anxiet y F41.9 and Bilateral thoracic back pain M54.6 [place] [address] [id number] Jul, [facility] [address] [address] Jun, Lumbago M54.5 [place] [address] [phone] 07 Apr, 2017 Annual physical exam Z00.00 ; Morbid obesity E66.01 ; Lumbago M54.5 ; History of back surgery Z98.89 ; Pre-diabetes R73.09 ; PCOS (polycystic ovarian syndrome) E28.2 and Bilateral thoracic back pain M54.6 [place] [address] [address] Apr, [place] [address] [address] Jan, Annual physical exam Z00.00 ; PCOS (polycystic ovarian syndrome) E28.2 ; Substance abuse F19.10 and Pre-diabetes R73.09 [facility] [address] [address] Nov, Acute non-recurrent pansinus itis J01.40 [facility] [address] [place] [id number] [address] [place] [id number] Jul, [facility] [address] [address] Jul, [facility] [address] [address] Jul, Medial meniscus tear, right, subsequent encounter S83.241D [facility] [address] [id number] [address] [place] [id number] Jun, Dental examination Z01.20 [facility] [address] [id number] [address] [place] [id number] Jun, Dental examination Z01.20 [facility] [address] [place] [id number] [address] [place] [phone] May, Chondromalacia patellae, rig ht knee M22.41 [facility] [address] [place] [id number] [place] [address] May, Bilateral thoracic back pain M54.6 ; Substance abuse F19.10 and Tobacco abuse Z72.0 [place] [address] [place] [id number] [place] [address] Apr, Bilateral low back pain with sciatica, sciatica laterality unspecified M54.40 [place] [address] [address] Apr, Bilateral low back pain with sciatica, sciatica laterality unspecified M54.40 [facility] [address] [address] Apr, Acute right-sided low back p ain with right-sided sciatica M54.41 [place] [address] [place] [id number] [address] [place] [id number] Apr, PMS (premenstrual syndrome) N94.3 ; Tobacco abuse counseling Z71.6 and Right knee pain, unspecified chronicity M25.561 [place] [id number] [place] [address] March, Well woman exam Z01.419 [place] [address] [place] [id number] [address] [place] [phone] Feb, Methamphetamine addiction F1 5.20 and Folliculitis L73.9 [place] [address] [place] [id number] [place] [id number] Feb, [facility] [address] [facility] [place] [id number] [address] [place] [phone] Jan, Well woman exam Z01.419 ; Ro utine gynecological examination V72.31 and Substance abuse F19.10 [facility] [address] [facility] [place] [id number] [address] [place] [phone] Jan, Sore throat J02.9 and Acute bronchitis J20.9 [facility] [address] [id number] [address] [place] [id number] Jan, Dental caries K02.9 [facility] [address] [facility] [place] [id number] [address] [place] [phone] Jan, Morbid obesity E66.01 ; Pre- diabetes R73.09 and Onychomycosis B35.1 [facility] [address] [facility] [place] [id number] [address] [place] [phone] Jan, Immunization due Z23 [facility] [address] [facility] [id number] [place] [id number] Jan, Encounter for dental examina tion Z01.20 [facility] [address] [facility] [place] [id number] [address] [place] [phone] Dec, Sinusitis, acute maxillary J 01.00 [facility] [address] [facility] [place] [id number] [address] [place] [id number] Nov, [facility] [address] [facility] [place] [id number] [address] [place] [phone] Nov, [facility] [address] [facility] [place] [id number] [address] [place] [phone] Nov, [facility] [address] [place] [id number] [address] [place] [id number] Nov, [facility] [address] [facility] [place] [id number] [address] [place] [id number] Nov, Bilateral low back pain with sciatica, sciatica laterality unspecified M54.40 ; History of back surgery Z98.89 ; Radiculopathy, thoracic region M54.14 ; Radiculopathy of lumbosacral region M54.17 and Bilateral thoracic back pain M54.6 [facility] [address] [id number] [address] [place] [id number] 19 Nov, 2015 Morbid obesity E66.01 and Ge neral medical exam Z00.00 [facility] [address] [id number] [address] [place] [id number] 19 Nov, 2015 Morbid obesity E66.01 and Ge neral medical exam Z00.00 [facility] [address] [id number] [address] [place] [id number] 12 Nov, 2015 General medical exam Z00.00 ; Lumbago M54.5 ; History of back surgery Z98.89 ; Bilateral low back pain with sciatica, sciatica laterality unspecified M54.40 ; Radiculopathy, thoracic region M54.14 ; Radiculopathy of lumbosacral region M54.17 and Bilateral thoracic back pain M54.6 [facility] [address] [id number] [address] [place] [id number] 12 Nov, 2015 General medical exam Z00.00 ; Morbid obesity E66.01 ; Substance abuse F19.10 ; Tobacco abuse Z72.0 ; Tobacco abuse counseling Z71.6 ; Lumbago M54.5 ; History of back surgery Z98.89 and Right upper quadrant pain R10.11 [facility] [address] [id number] [address] [place] [id number] 14 Feb, 2015 [facility] [address] [id number] [address] [place] [phone] Feb, [facility] [address] [id number] [address] [place] [phone] Jan, [facility] [address] [id number] [address] [place] [phone] Jan, [facility] [address] [facility] [place] [id number] [address] [place] [phone] Jan, [facility] [address] [id number] [address] [place] [address], [place] [address] Jan, [facility] [address] [id number] [address] [place] [address], [place] [address] Oct, [facility] [address] [id number] [address] [place] [address], [place] [address] Oct, [facility] [address] [id number] [address] [place] [address], [place] [address] Sep, [facility] [address] [id number] [address] [place] [address], [place] [address] Sep, [facility] [address] [id number] [address] [place] [address], [place] [address] Jul, [facility] [address] [id number] [address] [place] [address], [place] [address] Jul, [facility] [address] [id number] [address] [place] [address], [place] [address] May, [facility] [address] [id number] [address] [place] [address], [place] [phone] May, [facility] [address] [id number] [address] [place] [address], [place] [address] May, [facility] [address] [id number] [address] [place] [address], [place] [address] May, [facility] [address] [id number] [address] [place] [address], [place] [address] Apr, [facility] [address] [id number] [address] [place] [address], [place] [address] Apr, [facility] [address] [id number] [address] [place] [address], [place] [address] Apr, [facility] [address] [id number] [address] [place] [address], [place] [address] Apr, [facility] [address] [id number] [address] [place] [id number] 19 Apr, 2014 [facility] [address] [id number] [address] [place] [phone] 19 Apr, 2014 [facility] [address] [id number] [address] [place] [id number] 18 Apr, 2014 [facility] [address] [id number] [address] [place] [id number] 16 Apr, 2014 [facility] [address] [id number] [address] [place] [id number] 15 Apr, 2014 [facility] [address] [id number] [address] [place] [phone] 13 Apr, 2014 [facility] [address] [id number] [address] [place] [id number] 12 Apr, 2014 [facility] [address] [id number] [address] [place] [phone] Apr, IMMUNIZATIONS No Known Immunizations SOCIAL HISTORY Never Assessed REASON FOR VISIT [facility] [place] VITAL SIGNS MEDICATIONS Unknown [...] Surgery. 2009- Ortho Fo 2010 and 2011- [facility] 06/2010, 01/2011, 01/2012 Surgical History Right knee scope 10/24/2016 Hospitalization History Surgery(s)/Childbirth(s) only Hospitalization History CHF/ Pneumonia- Post Delivery of Chi ld Hospitalization History Pain r/t back surgery- hospitalized for pain control x3 Hospitalization History [facility] in [place] 02/2016 Hospitalization History [facility] after 3rd back surgery
--- OUTSIDE RECORDS SUMMARY | 2020-05-09 10:30 | XMS REPORT ---
Author Author Larissa Naylor Organization [facility] Address [address] [place] [address] Care Team Providers Care Airframe Design Engineer Name Role Phone NOAH Naylor Unavailable PROBLEMS Type Condition ICD9-CM Code FZW19-VH Code Onset Dates Condition S tatus SNOMED Code Problem H/O bursectomy Z98.890 Active 81389 5003 Problem Substance abuse F19.10 Active 6621 4007 Problem Tobacco abuse Z72.0 Active 553658 05 Problem Onychomycosis B35.1 Active 886876 008 Problem PCOS (polycystic ovarian syndrome) E28.2 Active 59623256 Problem PMS (premenstrual syndrome) N94.3 Ac tive 57330961 Problem Pre-diabetes R73.09 Active 9718081 Problem BMI 40.0-44.9, adult Z68.41 Active 062965099 Problem Reactive depression F32.9 Active 34043442 Problem Cannabis use disorder, severe, dependence F12.20 Active 63787813 Problem Methamphetamine use F15.10 Active 346378957 Problem Lumbar radiculopathy M54.16 Active 646876544 Problem Lumbar disc disease with radiculopathy M51.16 Active 949046096 Problem Anxiety F41.9 Active 74580266 Problem Substance induced mood disorder F19.94 Active 842015132 Problem Methamphetamine use disorder, severe, 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 [id number] [address] [place] [address] Jan, [facility] [address] [facility] [id number] [address] [place] [address] Dec, [place] [address] [place] [id number] [address] [place] [address] Aug, Lumbar disc disease with rad iculopathy M51.16 [place] [address] [address] Jul, [place] [address] [address] Jul, Lumbar radiculopathy M54.16 [place] [address] [address] March, Lumbar radiculopathy M54.16 and Pre-diabetes R73.09 [facility] [place] [address] [address] Jan, Epigastric pain R10.13 and M ethamphetamine use F15.[address] [address] Dec, Methamphetamine use disorder , severe, 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 ; Opioid use disorder, severe, in sustained remission F11.21 ; Tobacco use disorder, moderate, dependence F17.200 ; Cannabis use disorder, severe, dependence F12.20 and Substance induced mood disorder F19.94 [place] [address] [address] Nov, BMI 40.0-44.9, adult Z68.41 ; Lumbar radiculopathy M54.16 and Reactive depression F32.9 [place] [id number] [address] [place] [address] Sep, Strain of lumbar region, ini tial encounter S39.012A and BMI 40.0- 44.9, adult Z68.41 [facility] [place] [address] [address] Sep, Acute left-sided low back pa in with left-sided sciatica M54.42 [place] [address] [place] [address] Sep, [facility] [address] [place] [id number] [place] [address] Sep, Lumbago M54.5 and Anxiety F4 1.9 [facility] [address] [place] [id number] [address] [place] [address] Jul, Tobacco abuse Z72.0 ; Anxiet y F41.9 and Bilateral thoracic back pain M54.6 [facility] [address] [place] [id number] [place] [address] Jul, [facility] [address] [place] [id number] [place] [address] Jun, Lumbago M54.5 [facility] [address] [place] [id number] [place] [address] Apr, Annual physical exam Z00.00 ; Morbid obesity E66.01 ; Lumbago M54.5 ; History of back surgery Z98.89 ; Pre-diabetes R73.09 ; PCOS (polycystic ovarian syndrome) E28.2 and Bilateral thoracic back pain M54.6 [facility] [address] [address] Apr, [facility] [address] [address] Jan, Annual physical exam Z00.00 ; PCOS (polycystic ovarian syndrome) E28.2 ; Substance abuse F19.10 and Pre-diabetes R73.09 [facility] [address] [facility] [id number] [address] [place] [address] Nov, Acute non-recurrent pansinus itis J01.40 [facility] [address] [facility] [id number] [address] [place] [address] Jul, [facility] [address] [place] [id number] [address] [place] [address] Jul, [facility] [address] [place] [address] Jul, Medial meniscus tear, right, subsequent encounter S83.241D [facility] [address] [id number] [address] [place] [id number] Jun, Dental examination Z01.20 [facility] [address] [id number] [address] [place] [id number] Jun, Dental examination Z01.20 [facility] [address] [facility] [id number] [address] [place] [address] May, Chondromalacia patellae, rig ht knee M22.41 [place] [address] [place] [id number] [place] [address] May, Bilateral thoracic back pain M54.6 ; Substance abuse F19.10 and Tobacco abuse Z72.0 [place] [address] [place] [id number] [place] [address] Apr, Bilateral low back pain with sciatica, sciatica laterality unspecified M54.40 [place] [address] [place] [id number] [address] [place] [address] Apr, Bilateral low back pain with sciatica, sciatica laterality unspecified M54.40 [facility] [address] [place] [id number] [address] [place] [address] Apr, Acute right-sided low back p ain with right-sided sciatica M54.41 [place] [address] [place] [address] Apr, PMS (premenstrual syndrome) N94.3 ; Tobacco abuse counseling Z71.6 and Right knee pain, unspecified chronicity M25.561 [place] [address] [place] [id number] [address] [place] [address] March, Well woman exam Z01.419 [place] [address] [place] [id number] [address] [place] [address] Feb, Methamphetamine addiction F1 5.20 and Folliculitis L73.9 [facility] [address] [id number] [address] [place] [address] Feb, [facility] [address] [facility] [id number] [address] [place] [address] Jan, Well woman exam Z01.419 ; Ro utine gynecological examination V72.31 and Substance abuse F19.10 [facility] [address] [facility] [id number] [address] [place] [address] Jan, Sore throat J02.9 and Acute bronchitis J20.9 [facility] [address] [facility] [id number] [place] [id number] Jan, Dental caries K02.9 [facility] [address] [facility] [id number] [address] [place] [address] Jan, Morbid obesity E66.01 ; Pre- diabetes R73.09 and Onychomycosis B35.1 [facility] [address] [facility] [id number] [address] [place] [address] Jan, Immunization due Z23 [facility] [address] [facility] [id number] [place] [id number] Jan, Encounter for dental examina tion Z01.20 [facility] [address] [facility] [id number] [address] [place] [address] Dec, Sinusitis, acute maxillary J 01.00 [facility] [address] [facility] [id number] [address] [place] [address] Nov, [facility] [address] [facility] [id number] [address] [place] [address] Nov, [facility] [address] [facility] [id number] [address] [place] [address] Nov, [facility] [address] [facility] [id number] [address] [place] [address] Nov, [facility] [address] [place] [id number] [address] [place] [address] Nov, Bilateral low back pain with sciatica, sciatica laterality unspecified M54.40 ; History of back surgery Z98.89 ; Radiculopathy, thoracic region M54.14 ; Radiculopathy of lumbosacral region M54.17 and Bilateral thoracic back pain M54.6 [facility] [address] [id number] [address] [place] [address] Nov, Morbid obesity E66.01 and Ge neral medical exam Z00.00 [facility] [address] [id number] [address] [place] [address] Nov, Morbid obesity E66.01 and Ge neral medical exam Z00.00 [place] [address] [facility] [id number] [address] [place] [address] Nov, General medical exam Z00.00 ; Lumbago M54.5 ; History of back surgery Z98.89 ; Bilateral low back pain with sciatica, sciatica laterality unspecified M54.40 ; Radiculopathy, thoracic region M54.14 ; Radiculopathy of lumbosacral region M54.17 and Bilateral thoracic back pain M54.6 [facility] [address] [facility] [id number] [address] [place] [address] Nov, General medical exam Z00.00 ; Morbid obesity E66.01 ; Substance abuse F19.10 ; Tobacco abuse Z72.0 ; Tobacco abuse counseling Z71.6 ; Lumbago M54.5 ; History of back surgery Z98.89 and Right upper quadrant pain R10.11 [place] [address] [id number] [address] [place] [address] Feb, [place] [address] [facility] [id number] [address] [place] [address] 13 Feb, 2015 [facility] [address] [facility] [id number] [address] [place] [address] Jan, [facility] [address] [facility] [id number] [address] [place] [address] Jan, [facility] [address] [id number] [address] [place] [address], [place] [address] Jan, [facility] [address] [id number] [address] [place] [address], [place] [address] Jan, [facility] [address] [id number] [address] [place] [address], [place] [address] Oct, [facility] [address] [id number] [address] [place] [address], [place] [address] Oct, [facility] [address] [id number] [address] [place] [address], [place] [address] Sep, [facility] [address] [id number] [address] [place] [address], [place] [address] Sep, [facility] [address] [id number] [address] [place] [address], [place] [address] Jul, [facility] [address] [id number] [address] [place] [address], [place] [address] Jul, [facility] [address] [id number] [address] [place] [address], [place] [address] May, [facility] [address] [id number] [address] [place] [address], [place] [address] May, [facility] [address] [id number] [address] [place] [address], [place] [address] May, [facility] [address] [id number] [address] [place] [address], [place] [address] May, [facility] [address] [id number] [address] [place] [address], [place] [address] Apr, [facility] [address] [id number] [address] [place] [address], [place] [address] Apr, [facility] [address] [id number] [address] [place] [address], [place] [address] Apr, [facility] [address] [id number] [address] [place] [phone] 20 Apr, 2014 [facility] [address] [id number] [address] [place] [address] 19 Apr, 2014 [facility] [address] [id number] [address] [place] [address] 19 Apr, 2014 [facility] [address] [id number] [address] [place] [address] 18 Apr, 2014 [facility] [address] [id number] [address] [place] [address] 16 Apr, 2014 [facility] [address] [id number] [address] [place] [address] 15 Apr, 2014 [facility] [address] [id number] [address] [place] [address] 13 Apr, 2014 [facility] [address] [id number] [address] [place] [address] 12 Apr, 2014 [facility] [address] [id number] [address] [place] [address] 12 Apr, 2014 IMMUNIZATIONS No Known Immunizations SOCIAL HISTORY Never Assessed REASON FOR VISIT PLAN OF CARE VITAL SIGNS MEDICATIONS Unknown Medications RESULTS No Results PROCEDURES Procedure Date Ordered Result Body Site PSYCH DIAGNOSTIC EVALUATION February 04, 2015 INSTRUCTIONS MEDICATIONS ADMINISTERED No Known Medications MEDICAL [...] 2009- [facility] 2010 and 2011- [facility] 06/2010, 01/2011, 01/2012 Surgical History Right knee scope 10/24/2016 Hospitalization History Surgery(s)/Childbirth(s) only Hospitalization History CHF/ Pneumonia- Post Delivery of Chi ld Hospitalization History Pain r/t back surgery- hospitalized for pain control x3 Hospitalization History [facility] in [place] 02/2016 Hospitalization History [facility]A after 3rd back surgery
--- OUTSIDE RECORDS SUMMARY | 2020-05-09 10:30 | XMS REPORT ---
Author Author Larissa POLLACK Organization [facility] Address [address] [place] [address] Care Team Providers Care Forensic Examiner Name Role Phone KIMANI POLLACK Unavailable PROBLEMS Type Condition ICD9-CM Code FSW06-GU Code Onset Dates Condition S tatus SNOMED Code Problem Lumbar radiculopathy M54.16 Active 747005152 Problem Reactive depression F32.9 Active 43870979 Problem BMI 40.0-44.9, adult Z68.41 Active 386043194 Problem Methamphetamine use F15.10 Active 656328367 Problem Tobacco use disorder, moderate, dependence F17.200 Active 06800357 Problem Cannabis use disorder, severe, dependence F12.20 Active 92980537 Problem Opioid use disorder, severe, in sustained remission F11.21 Active 12594213 Problem Methamphetamine use disorder, severe, 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 Active 74691622 Problem Substance induced mood disorder F19.94 Active 276611712 Problem H/O bursectomy Z98.890 Active 14293 5003 Problem Tobacco abuse Z72.0 Active 640153 05 Problem Onychomycosis B35.1 Active 641655 008 Problem Pre-diabetes R73.09 Active 5784682 Problem Substance abuse F19.10 Active 6621 4007 Problem PMS (premenstrual syndrome) N94.3 Ac tive 65977209 Problem PCOS (polycystic ovarian syndrome) E28.2 Active 75862197 Problem Anxiety F41.9 Active 01270020 ALLERGIES No Information ENCOUNTERS Encounter Location Date Diagnosis [facility] [address] [facility] [id number] [address] [place] [phone] Jul, [facility] [address] [facility] [id number] [address] [place] [address] Jul, Lumbar radiculopathy M54.16 [facility] [address] [facility] [id number] [address] [place] [address] March, Lumbar radiculopathy M54.16 and Pre-diabetes R73.09 [facility] [address] [address] Jan, Epigastric pain R10.13 and M ethamphetamine use F15.10 [place] [address] [address] Dec, Methamphetamine use disorder , severe, 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 ; Opioid use disorder, severe, in sustained remission F11.21 ; Tobacco use disorder, moderate, dependence F17.200 ; Cannabis use disorder, severe, dependence F12.20 and Substance induced mood disorder F19.94 [place] [address] [address] Nov, BMI 40.0-44.9, adult Z68.41 ; Lumbar radiculopathy M54.16 and Reactive depression F32.9 [place] [address] [address] Sep, Strain of lumbar region, ini tial encounter S39.012A and BMI 40.0- 44.9, adult Z68.41 [facility] [address] [address] Sep, Acute left-sided low back pa in with left-sided sciatica M54.42 [place] [address] [address] Sep, [place] [address] [address] Sep, Lumbago M54.5 and Anxiety F4 1.9 [place] [address] [address] Jul, Tobacco abuse Z72.0 ; Anxiet y F41.9 and Bilateral thoracic back pain M54.[address] [address] Jul, [facility] [address] [facility] [id number] [address] [place] [address] Jun, Lumbago M54.5 [facility] [address] [facility] [id number] [address] [place] [address] 07 Apr, 2017 Annual physical exam Z00.00 ; Morbid obesity E66.01 ; Lumbago M54.5 ; History of back surgery Z98.89 ; Pre-diabetes R73.09 ; PCOS (polycystic ovarian syndrome) E28.2 and Bilateral thoracic back pain M54.6 [facility] [address] [facility] [id number] [address] [place] [address] Apr, [facility] [address] [facility] [id number] [place] [address] Jan, Annual physical exam Z00.00 ; PCOS (polycystic ovarian syndrome) E28.2 ; Substance abuse F19.10 and Pre-diabetes R73.09 [facility] [address] [facility] [id number] [address] [place] [address] Nov, Acute non-recurrent pansinus itis J01.40 [facility] [address] [facility] [id number] [address] [place] [address] Jul, [facility] [address] [place] [id number] [address] [place] [address] Jul, [facility] [id number] [place] [address] Jul, Medial meniscus tear, right, subsequent encounter S83.241D [facility] [address] [id number] [address] [place] [phone] Jun, Dental examination Z01.20 [facility] [address] [id number] [address] [place] [id number] Jun, Dental examination Z01.20 [facility] [address] [facility] [id number] [address] [place] [address] May, Chondromalacia patellae, rig ht knee M22.41 [facility] [address] [facility] [id number] [address] [place] [address] May, Bilateral thoracic back pain M54.6 ; Substance abuse F19.10 and Tobacco abuse Z72.0 [place] [address] [place] [id number] [address] [place] [address] Apr, Bilateral low back pain with sciatica, sciatica laterality unspecified M54.40 [facility] [address] [place] [id number] [address] [place] [address] Apr, Bilateral low back pain with sciatica, sciatica laterality unspecified M54.40 [place] [address] [place] [id number] [place] [address] Apr, Acute right-sided low back p ain with right-sided sciatica M54.41 [place] [address] [address] Apr, PMS (premenstrual syndrome) N94.3 ; Tobacco abuse counseling Z71.6 and Right knee pain, unspecified chronicity M25.561 [facility] [address] [address] March, Well woman exam Z01.419 [place] [address] [address] Feb, Methamphetamine addiction F1 5.20 and Folliculitis L73.9 [facility] [address] [place] [id number] [address] [place] [address] Feb, [place] [address] [place] [id number] [address] [place] [address] Jan, Well woman exam Z01.419 ; Ro utine gynecological examination V72.31 and Substance abuse F19.10 [facility] [address] [facility] [id number] [address] [place] [address] Jan, Sore throat J02.9 and Acute bronchitis J20.9 [facility] [address] [id number] [address] [place] [id number] Jan, Dental caries K02.9 [facility] [address] [facility] [id number] [address] [place] [address] Jan, Morbid obesity E66.01 ; Pre- diabetes R73.09 and Onychomycosis B35.1 [facility] [address] [id number] [address] [place] [address] Jan, Immunization due Z23 [facility] [address] [id number] [address] [place] [id number] 15 Jan, 2016 Encounter for dental examina tion Z01.20 [facility] [address] [facility] [id number] [address] [place] [address] 12 Dec, 2015 Sinusitis, acute maxillary J 01.00 [facility] [address] [facility] [id number] [address] [place] [phone] 27 Nov, 2015 [facility] [address] [id number] [address] [place] [id number] Nov, [facility] [address] [address] Nov, [facility] [address] [facility] [id number] [address] [place] [address] Nov, [facility] [address] [facility] [id number] [address] [place] [address] Nov, Bilateral low back pain with sciatica, sciatica laterality unspecified M54.40 ; History of back surgery Z98.89 ; Radiculopathy, thoracic region M54.14 ; Radiculopathy of lumbosacral region M54.17 and Bilateral thoracic back pain M54.6 [facility] [address] [facility] [id number] [address] [place] [address] Nov, Morbid obesity E66.01 and Ge [facility] medical exam Z00.00 [facility] [address] [facility] [id number] [address] [place] [phone] 19 Nov, 2015 Morbid obesity E66.01 and Ge neral medical exam Z00.00 [facility] [address] [facility] [id number] [address] [place] [address] 12 Nov, 2015 General medical exam Z00.00 ; Lumbago M54.5 ; History of back surgery Z98.89 ; Bilateral low back pain with sciatica, sciatica laterality unspecified M54.40 ; Radiculopathy, thoracic region M54.14 ; Radiculopathy of lumbosacral region M54.17 and Bilateral thoracic back pain M54.6 [facility] [address] [facility] [id number] [address] [place] [address] 12 Nov, 2015 General medical exam Z00.00 ; Morbid obesity E66.01 ; Substance abuse F19.10 ; Tobacco abuse Z72.0 ; Tobacco abuse counseling Z71.6 ; Lumbago M54.5 ; History of back surgery Z98.89 and Right upper quadrant pain R10.11 [facility] [address] [facility] [id number] [address] [place] [phone] 14 Feb, 2015 [facility] [address] [facility] [id number] [address] [place] [phone] 13 Feb, 2015 [facility] [address] [facility] [id number] [address] [place] [phone] 19 Jan, 2015 [facility] [address] [facility] [id number] [address] [place] [phone] Jan, [facility] [address] [id number] [address] [place] [id number] Jan, [facility] [address] [id number] [address] [place] [phone] Jan, [facility] [address] [facility] [id number] [address] [place] [phone] Oct, [facility] [address] [facility] [id number] [address] [place] [phone] Oct, [facility] [address] [id number] [address] [place] [address], [place] [address] Sep, [facility] [address] [id number] [address] [place] [address], [place] [address] Sep, [facility] [address] [id number] [address] [place] [address], [place] [address] Jul, [facility] [address] [id number] [address] [place] [address], [place] [address] Jul, [facility] [address] [id number] [address] [place] [address], [place] [address] May, [facility] [address] [id number] [address] [place] [address], [place] [address] May, [facility] [address] [id number] [address] [place] [address], [place] [address] May, [facility] [address] [id number] [address] [place] [address], [place] [address] May, [facility] [address] [id number] [address] [place] [address], [place] [address] Apr, [facility] [address] [id number] [address] [place] [address], [place] [address] Apr, [facility] [address] [id number] [address] [place] [address], [place] [address] Apr, [facility] [address] [id number] [address] [place] [address], [place] [address] Apr, [facility] [address] [id number] [address] [place] [address], [place] [address] Apr, [facility] [address] [id number] [address] [place] [address], [place] [address] Apr, [facility] [address] [id number] [address] [place] [address], [place] [address] 18 Apr, 2014 [facility] [address] [id number] [address] [place] [address], [place] [address] Apr, [facility] [address] [facility] [id number] [address] [place] [phone] 15 Apr, 2014 [facility] [address] [facility] [id number] [address] [place] [address] Apr, [facility] [address] [facility] [id number] [address] [place] [address] Apr, [facility] [address] [facility] [id number] [address] [place] [address] Apr, IMMUNIZATIONS No Known Immunizations SOCIAL HISTORY Never Assessed REASON FOR VISIT Prior Authorization Request PLAN OF CARE VITAL SIGNS MEDICATIONS Unknown [...] 2009- [facility] 2010 and [facility]- [facility] 06/2010, 01/2011, 01/2012 Surgical History Right knee scope 10/24/2016 Hospitalization History Surgery(s)/Childbirth(s) only Hospitalization History CHF/ Pneumonia- Post Delivery of Chi ld Hospitalization History Pain r/t back surgery- hospitalized for pain control x3 Hospitalization History [facility] in [place] 02/2016 Hospitalization History [facility] after 3rd back surgery
--- OUTSIDE RECORDS SUMMARY | 2020-05-09 10:31 | XMS REPORT ---
Author Author Larissa POLLACK Organization [facility] Address [address] [place] [address] Care Team Providers Care Pastry Wrapper Name Role Phone KIMANI POLLACK Unavailable PROBLEMS Type Condition ICD9-CM Code [id number] Code Onset Dates Condition S tatus SNOMED Code Problem Lumbar radiculopathy M54.16 Active 360355313 Problem Reactive depression F32.9 Active 45086386 Problem BMI 40.0-44.9, adult Z68.41 Active 702336612 Problem Methamphetamine use F15.10 Active 709998843 Problem Tobacco use disorder, moderate, dependence F17.200 Active 93007954 Problem Cannabis use disorder, severe, dependence F12.20 Active 43634317 Problem Opioid use disorder, severe, in sustained remission F11.21 Active 64526252 Problem Methamphetamine use disorder, severe, 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 Active 12618326 Problem Substance induced mood disorder F19.94 Active 410079710 Problem H/O bursectomy Z98.890 Active 41014 5003 Problem Tobacco abuse Z72.0 Active 068027 05 Problem Onychomycosis B35.1 Active 433125 008 Problem Pre-diabetes R73.09 Active 9902878 Problem Substance abuse F19.10 Active 6621 4007 Problem PMS (premenstrual syndrome) N94.3 Ac tive 59878355 Problem PCOS (polycystic ovarian syndrome) E28.2 Active 29094229 Problem Anxiety F41.9 Active 80656115 ALLERGIES Substance Reaction Event Type Date Status Keflex facial rash Drug Allergy Jul, Active ENCOUNTERS Encounter Location Date Diagnosis [facility] [address] [facility] [id number] [address] [place] [phone] Jul, [facility] [address] [facility] [id number] [address] [place] [phone] Jul, Lumbar radiculopathy M54.16 [place] [address] [place] [id number] [address] [place] [address] March, Lumbar radiculopathy M54.16 and Pre-diabetes R73.09 [facility] [address] [place] [id number] [place] [phone] Jan, Epigastric pain R10.13 and M ethamphetamine use F15.10 [place] [address] [address] Dec, Methamphetamine use disorder , severe, 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 ; Opioid use disorder, severe, in sustained remission F11.21 ; Tobacco use disorder, moderate, dependence F17.200 ; Cannabis use disorder, severe, dependence F12.20 and Substance induced mood disorder F19.94 [place] [address] [address] Nov, BMI 40.0-44.9, adult Z68.41 ; Lumbar radiculopathy M54.16 and Reactive depression F32.9 [place] [address] [address] Sep, Strain of lumbar region, ini tial encounter S39.012A and BMI 40.0- 44.9, adult Z68.41 [facility] [address] [address] Sep, Acute left-sided low back pa in with left-sided sciatica M54.42 [place] [address] [address] Sep, [place] [address] [address] Sep, Lumbago M54.5 and Anxiety F4 1.9 [place] [address] [place] [id number] [address] [place] [phone] Jul, Tobacco abuse Z72.0 ; Anxiet y F41.9 and Bilateral thoracic back pain M54.6 [place] [address] [id number] [address] [place] [address] 06 Jul, 2017 [facility] [address] [facility] [id number] [address] [place] [address] Jun, Lumbago M54.5 [facility] [address] [facility] [id number] [address] [place] [phone] 07 Apr, 2017 Annual physical exam Z00.00 ; Morbid obesity E66.01 ; Lumbago M54.5 ; History of back surgery Z98.89 ; Pre-diabetes R73.09 ; PCOS (polycystic ovarian syndrome) E28.2 and Bilateral thoracic back pain M54.6 [facility] [address] [facility] [id number] [address] [place] [address] Apr, [facility] [address] [facility] [id number] [address] [place] [address] Jan, Annual physical exam Z00.00 ; PCOS (polycystic ovarian syndrome) E28.2 ; Substance abuse F19.10 and Pre-diabetes R73.09 [facility] [address] [facility] [id number] [address] [place] [address] Nov, Acute non-recurrent pansinus itis J01.40 [facility] [address] [facility] [id number] [address] [place] [phone] 29 Jul, 2016 [facility] [address] [facility] [id number] [address] [place] [address] Jul, [facility] [address] [facility] [id number] [address] [place] [address] Jul, Medial meniscus tear, right, subsequent encounter S83.241D [facility] [address] [id number] [place] [id number] Jun, Dental examination Z01.20 [facility] [address] [id number] [address] [place] [id number] Jun, Dental examination Z01.20 [facility] [address] [facility] [id number] [place] [phone] May, Chondromalacia patellae, rig ht knee M22.41 [facility] [address] [place] [id number] [address] [place] [address] May, Bilateral thoracic back pain M54.6 ; Substance abuse F19.10 and Tobacco abuse Z72.0 [place] [address] [address] Apr, Bilateral low back pain with sciatica, sciatica laterality unspecified M54.40 [facility] [address] [address] Apr, Bilateral low back pain with sciatica, sciatica laterality unspecified M54.40 [place] [address] [place] [id number] [place] [address] Apr, Acute right-sided low back p ain with right-sided sciatica M54.41 [place] [address] [address] Apr, PMS (premenstrual syndrome) N94.3 ; Tobacco abuse counseling Z71.6 and Right knee pain, unspecified chronicity M25.561 [facility] [address] [place] [id number] [address] [place] [address] March, Well woman exam Z01.419 [place] [address] [place] [id number] [address] [place] [address] Feb, Methamphetamine addiction F1 5.20 and Folliculitis L73.9 [facility] [address] [place] [id number] [address] [place] [address] Feb, [facility] [address] [address] Jan, Well woman exam Z01.419 ; Ro utine gynecological examination V72.31 and Substance abuse F19.10 [facility] [address] [place] [id number] [address] [place] [address] Jan, Sore throat J02.9 and Acute bronchitis J20.9 [facility] [address] [id number] [address] [place] [id number] Jan, Dental caries K02.9 [facility] [address] [id number] [address] [place] [phone] Jan, Morbid obesity E66.01 ; Pre- diabetes R73.09 and Onychomycosis B35.1 [facility] [address] [id number] [address] [place] [address] Jan, Immunization due Z23 [facility] [address] [id number] [place] [id number] Jan, Encounter for dental examina tion Z01.20 [facility] [address] [facility] [id number] [address] [place] [phone] 12 Dec, 2015 Sinusitis, acute maxillary J 01.00 [facility] [address] [id number] [address] [place] [address] Nov, [facility] [address] [id number] [address] [place] [phone] Nov, [facility] [address] [facility] [id number] [address] [place] [phone] Nov, [facility] [address] [facility] [id number] [address] [place] [address] Nov, [facility] [address] [facility] [id number] [address] [place] [address] Nov, Bilateral low back pain with sciatica, sciatica laterality unspecified M54.40 ; History of back surgery Z98.89 ; Radiculopathy, thoracic region M54.14 ; Radiculopathy of lumbosacral region M54.17 and Bilateral thoracic back pain M54.6 [facility] [address] [facility] [id number] [address] [place] [address] Nov, Morbid obesity E66.01 [facility] Z[facility].00 [facility] [address] [id number] [address] [place] [phone] 19 Nov, 2015 Morbid obesity E66.01 and Ge neral medical exam Z00.00 [facility] [address] [id number] [address] [place] [phone] 12 Nov, 2015 General medical exam Z00.00 ; Lumbago M54.5 ; History of back surgery Z98.89 ; Bilateral low back pain with sciatica, sciatica laterality unspecified M54.40 ; Radiculopathy, thoracic region M54.14 ; Radiculopathy of lumbosacral region M54.17 and Bilateral thoracic back pain M54.6 [facility] [address] [id number] [address] [place] [address] 12 Nov, 2015 General medical exam Z00.00 ; Morbid obesity E66.01 ; Substance abuse F19.10 ; Tobacco abuse Z72.0 ; Tobacco abuse counseling Z71.6 ; Lumbago M54.5 ; History of back surgery Z98.89 and Right upper quadrant pain R10.11 [facility] [address] [id number] [address] [place] [id number] 14 Feb, 2015 [facility] [address] [id number] [address] [place] [phone] 13 Feb, 2015 [facility] [address] [id number] [address] [place] [phone] Jan, [facility] [address] [id number] [address] [place] [phone] Jan, [facility] [address] [id number] [address] [place] [phone] Jan, [facility] [address] [id number] [address] [place] [phone] Jan, [facility] [address] [id number] [address] [place] [phone] Oct, [facility] [address] [id number] [address] [place] [phone] Oct, [facility] [address] [id number] [address] [place] [address], [place] [address] Sep, [facility] [address] [id number] [address] [place] [address], [place] [address] Sep, [facility] [address] [id number] [address] [place] [address], [place] [address] Jul, [facility] [address] [id number] [address] [place] [address], [place] [address] Jul, [facility] [address] [id number] [address] [place] [address], [place] [address] May, [facility] [address] [id number] [address] [place] [address], [place] [address] May, [facility] [address] [id number] [address] [place] [address], [place] [address] May, [facility] [address] [id number] [address] [place] [address], [place] [address] May, [facility] [address] [id number] [address] [place] [address], [place] [address] Apr, [facility] [address] [id number] [address] [place] [address], [place] [address] Apr, [facility] [address] [id number] [address] [place] [address], [place] [address] Apr, [facility] [address] [id number] [address] [place] [address], [place] [address] Apr, [facility] [address] [id number] [address] [place] [address], [place] [address] Apr, [facility] [address] [id number] [address] [place] [address], [place] [address] Apr, [facility] [address] [id number] [address] [place] [address], [place] [address] Apr, [facility] [address] [id number] [address] [place] [phone] 16 Apr, 2014 [facility] [address] [facility] [id number] [address] [place] [phone] 15 Apr, 2014 [facility] [address] [facility] [id number] [address] [place] [phone] 13 Apr, 2014 [facility] [address] [facility] [id number] [address] [place] [phone] Apr, [facility] [address] [facility] [id number] [address] [place] [phone] Apr, IMMUNIZATIONS No Known Immunizations SOCIAL HISTORY Never Assessed REASON FOR VISIT Back pain hurt 3-4 weeks ago [facility], went to ER sunday08/19/18 got 2 jaimie ts - [facility] PLAN OF CARE Activity Details Follow Up Will call after MRI Reason: Pending Test MRI : Lumbar w/o contrast VITAL SIGNS Height 64 in 2018-08-20 Weight 203.9 lbs 2018-08-20 Temperature 97.9 degrees Fahrenheit 2018-08-20 Heart Rate 102 bpm 2018-08-20 Respiratory Rate 24 2018-08-20 BMI 35.00 kg/m2 2018-08-20 Blood pressure systolic 112 mmHg 2018-08-20 Blood pressure diastolic 86 mmHg 2018-08-20 MEDICATIONS Medication Instructions Dosage Frequency Start Date End Date Duration S rikyus Tramadol HCl 50 mg Orally 3 times a day 1 tablet as needed 8h 25 2017 Active Lyrica 150 MG Orally Three times a day 1 cap 8h 10 Mar, 2018 Not-Taking Ibuprofen 800 MG Orally Three times a day 1 tablet 8h Active Chantix 1 MG Orally Twice a day 1 tablet 12h Not-Taking Cyclobenzaprine HCl 10 mg Orally 2 times a day 1 tablet as needed 1 2h 29 Sep, 2017 Active RESULTS No Results PROCEDURES No Known [...] History Back Surgery. [facility] and [facility]- [facility] 06/2010, 01/2011, 01/2012 Surgical History Right knee scope 10/24/2016 Hospitalization History Surgery(s)/Childbirth(s) only Hospitalization History CHF/ Pneumonia- Post Delivery of Chi ld Hospitalization History Pain r/t back surgery- hospitalized for pain control x3 Hospitalization History [facility] in [place] 02/2016 Hospitalization History MSSA after 3rd back surgery
--- OUTSIDE RECORDS SUMMARY | 2020-05-09 10:32 | XMS REPORT | Continuity of Care Document ---
Author Organization Unknown Address Unknown Phone Unavailable Allergies Active Description Code Type Severity Reaction Onset Reported/Identified Relationship to Patient Clinical Status Yes Keflex Drug Allergy N/A N/A 05/07/2014 Yes No Known Drug Allergies [id number] Drug Allergy Unknown N/A 10/02/2014 Yes cephalexin [id number] Drug Allerg y Severe RASH 11/25/2015 Medications There is no data. Problems Date Dx Coded Attending Type Code Diagnosis Diagnosed By 10/25/1341 RAOUL NGUYỄN Ot M54.41 LUMBAGO WITH SCIATICA, RIGHT SIDE 05/07/2014 JEANETTE MITCHELL APRN A 62 5.3 DYSMENORRHEA 05/07/2014 JEANETTE MITCHELL APRN A V72.31 REFERENCE ARCHIVIST EXAM, ROUTINE 05/07/2014 JEANETTE MITCHELL APRN A V73.81 HPV SCREENING 05/07/2014 JEANETTE MITCHELL APRN A V7 4.5 STD SCREEN 05/07/2014 JEANETTE MITCHELL APRN A V76.10 BREAST CANCER SCREENING 05/07/2014 JEANETTE MITCHELL APRN A V7 6.2 CERVICAL CANCER SCREENING (PAP SMEAR) 05/07/2014 NOVA OVIEDO APRN R 625.3 DYSMENORRHEA 05/07/2014 NOVA OVIEDO APRN R V72.31 REFERENCE ARCHIVIST EXAM, ROUTINE 05/07/2014 KITA OVIEDO APRNIA R V73.81 HPV SCREENING 05/07/2014 KITA OVIEDO APRNIA R V74.5 STD SCREEN 05/07/2014 KITA OVIEDO APRNIA R V76.10 BREAST CANCER SCREENING 05/07/2014 NOVA OVIEDO APRN R V76.2 CERVICAL CANCER SCREENING (PAP SMEAR) 05/07/2014 DEION HINKLE MD 625 .3 DYSMENORRHEA 05/07/2014 DEION HINKLE MD V72 .31 REFERENCE ARCHIVIST EXAM, ROUTINE 05/07/2014 DEION HINKLE MD V73 .81 HPV SCREENING 05/07/2014 DEION HINKLE MD V74 .5 STD SCREEN 05/07/2014 DEION HINKLE MD V76 .10 BREAST CANCER SCREENING 05/07/2014 DEION HINKLE MD V76 .2 CERVICAL CANCER SCREENING (PAP SMEAR) 05/07/2014 DEION HINKLE MD 625 .3 DYSMENORRHEA 05/07/2014 DEION HINKLE MD V72 .31 REFERENCE ARCHIVIST EXAM, ROUTINE 05/07/2014 DEION HINKLE MD V73 .81 HPV SCREENING 05/07/2014 DEION HINKLE MD V74 .5 STD SCREEN 05/07/2014 DEION HINKLE MD V76 .10 BREAST CANCER SCREENING 05/07/2014 DEION HINKLE MD V76 .2 CERVICAL CANCER SCREENING (PAP SMEAR) 05/07/2014 EVIE BENÍTEZ DO K 625.3 DYSMENORRHEA 05/07/2014 EVIE BENÍTEZ DO K V72.31 REFERENCE ARCHIVIST EXAM, ROUTINE 05/07/2014 EVIE BENÍTEZ DO K V73.81 HPV SCREENING 05/07/2014 EVIE BENÍTEZ DO K V74.5 STD SCREEN 05/07/2014 EVIE BENÍTEZ DO K V76.10 BREAST CANCER SCREENING 05/07/2014 EVIE BENÍTEZ DO K V76.2 CERVICAL CANCER SCREENING (PAP SMEAR) 05/07/2014 FARHAD EAGLE APRN R 625.3 DYSMENORRHEA 05/07/2014 LYNSEY EAGLE APRNINA R V72.31 REFERENCE ARCHIVIST EXAM, ROUTINE 05/07/2014 LYNSEY EAGLE APRNINA R V73.81 HPV SCREENING 05/07/2014 FCO MALDONADO FARHAD R V74.5 STD SCREEN 05/07/2014 FCO MALDONADO FARHAD R V76.10 BREAST CANCER SCREENING 05/07/2014 LYNSEY EAGLE APRNINA R V76.2 CERVICAL CANCER SCREENING (PAP SMEAR) 05/14/2014 NOVA OVIEDO APRN 477.9 ALLERGIC RHINITIS CAUSE UNSPECIFIED 05/14/2014 DEION HINKLE MD 477 .9 ALLERGIC RHINITIS CAUSE UNSPECIFIED 05/14/2014 DEION HINKLE MD 477 .9 ALLERGIC RHINITIS CAUSE UNSPECIFIED 05/14/2014 BENÍTEZ DO, EVIE K 477.9 ALLERGIC RHINITIS CAUSE UNSPECIFIED 05/14/2014 FARHAD EAGLE APRN R 477.9 ALLERGIC RHINITIS CAUSE UNSPECIFIED 05/28/2014 MANAN SOLOMON, DEION N 795 .03 ABNORMAL PAP - LGSIL 05/28/2014 MANAN SOLOMON, DEION N 795 .03 ABNORMAL PAP - LGSIL 05/28/2014 EVIE BENÍTZE DO K 795.03 ABNORMAL PAP - LGSIL 05/28/2014 FARHAD EAGLE APRN R 795.03 ABNORMAL PAP - LGSIL 07/28/2014 MANAN SOLOMON, DEION N 465 .9 UPPER RESPIRATORY INFECTION 07/28/2014 MANAN SOLOMON, DEION N 724 .2 BACK PAIN, LOWER 07/28/2014 EVIE BENÍTEZ DO K 465.9 UPPER RESPIRATORY INFECTION 07/28/2014 EVIE BENÍTEZ DO K 724.2 BACK PAIN, LOWER 07/28/2014 FARHAD EAGLE APRN R 465.9 UPPER RESPIRATORY INFECTION 07/28/2014 FARHAD EAGLE APRN R 724.2 BACK PAIN, LOWER 10/02/2014 ALISA PALOMARES L Ot 722.10 10/02/2014 ALISA PALOMARES Ot 724.5 02/04/2015 EVIE BENÍTEZ DO K 296.33 MO DEPRESSIVE RECURRENT SEVERE W/O PSYCHOTIC BEHAVIOR 02/04/2015 EVIE BENÍTEZ DO K 304.80 SA POLYSUB DEP 02/04/2015 EVIE BENÍTEZ DO K 312.30 I IMPULSE CONTROL DISORDER NOS 02/04/2015 LYNSEY EAGLE APRNINA R 296.33 MO DEPRESSIVE RECURRENT SEVERE W/O [...] APRN R 296.90 MOOD DISORDER NOS 03/19/2015 FARHAD EAGLE APRN R 300.02 AN GEN ANXIETY 03/19/2015 FARHAD EAGLE APRN 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 09/22/2015 Ot 722.52 09/22/2015 KIKE JEFFERSON DO Ot F17.210 09/22/2015 KIKE JEFFERSON DO Ot K21.9 09/22/2015 KIKE JEFFERSON DO Ot Z87.898 09/22/2015 Ot 722.52 11/25/2015 Ot 722.52 11/25/2015 MARVIN SOLOMON, JAYDEN Mcleod Ot F11.21 11/25/2015 MARVIN SOLOMON, JAYDEN Mcleod Ot F17.210 11/25/2015 MARVIN SOLOMON, JAYDEN Mcleod Ot G89.29 11/25/2015 MARVIN SOLOMON, JAYDEN Mcleod Ot M54 .5 11/25/2015 Ot 722.52 12/13/2015 Ot 722.52 01/18/2016 Ot R10.11 01/18/2016 Ot Z00.00 01/19/2016 ELIA ANTONIO DRIVER/REFUSE COLLECTOR Ot M54.14 01/19/2016 ELIA ANTONIO DRIVER/REFUSE COLLECTOR Ot M54.17 01/19/2016 ELIA ANTONIO DRIVER/REFUSE COLLECTOR Ot M54.40 01/19/2016 ELIA ANTONIO DRIVER/REFUSE COLLECTOR Ot M54.6 01/19/2016 ELIA ANTONIO DRIVER/REFUSE COLLECTOR Ot Z98.89 05/15/2016 ELIA ANTONIO DRIVER/REFUSE COLLECTOR Ot M54.14 RADICULOPATHY, THORACIC REGION 05/15/2016 ELIA ANTONIO DRIVER/REFUSE COLLECTOR Ot M54.17 RADICULOPATHY, LUMBOSACRAL REGION 05/15/2016 ELIA ANTONIO DRIVER/REFUSE COLLECTOR Ot M54.40 LUMBAGO WITH SCIATICA, UNSPECIFIED SIDE 05/15/2016 ELIA ANTONIO DRIVER/REFUSE COLLECTOR Ot M54.6 PAIN IN THORACIC SPINE 05/15/2016 ELIA ANTONIO DRIVER/REFUSE COLLECTOR Ot Z98.89 OTHER SPECIFIED POSTPROCEDURAL STATES 05/22/2016 RAOUL NGUYỄN Ot M54.41 LUMBAGO WITH SCIATICA, RIGHT SIDE 06/08/2016 RAOUL NGUYỄNP Ot M54.41 LUMBAGO WITH SCIATICA, RIGHT SIDE 06/14/2016 GOPI, RAOUL ACID ADJUSTER Ot M54.41 LUMBAGO WITH SCIATICA, RIGHT SIDE 08/16/2016 ANTONIODEVI HernándezADA Hickman DRIVER/REFUSE COLLECTOR Ot M54.14 RADICULOPATHY, THORACIC REGION 08/16/2016 ANTONIOELIA R DRIVER/REFUSE COLLECTOR Ot M54.17 RADICULOPATHY, LUMBOSACRAL REGION 08/16/2016 ANTONIO, ELIA Hickman DRIVER/REFUSE COLLECTOR Ot M54.40 LUMBAGO WITH SCIATICA, UNSPECIFIED SIDE 08/16/2016 ELIA ANTONIO DRIVER/REFUSE COLLECTOR Ot M54.6 PAIN IN THORACIC SPINE 08/16/2016 ANTONIOELIA DRIVER/REFUSE COLLECTOR Ot Z98.89 OTHER SPECIFIED POSTPROCEDURAL STATES 08/17/2016 JULIETA MEDINA ACID ADJUSTER Ot M17. 11 UNILATERAL PRIMARY OSTEOARTHRITIS, RIGHT 08/17/2016 JULIETA MEDINAP Ot M25.461 EFFUSION, RIGHT KNEE 08/17/2016 JULIETA MEDINAP Ot S83.241A OTH TEAR OF MEDIAL MENISCUS, CURRENT INJ 08/17/2016 JULIETA MEDINA ACID ADJUSTER Ot X58.XXXA EXPOSURE TO OTHER SPECIFIED FACTORS, INI 08/17/2016 JULIETA MEDINA ACID ADJUSTER Ot Y99. 8 OTHER EXTERNAL CAUSE STATUS 09/05/2016 JULIETA MEDINA ACID ADJUSTER Ot M17. 11 UNILATERAL PRIMARY OSTEOARTHRITIS, RIGHT 09/05/2016 JULIETA MEDINAP Ot M25.461 EFFUSION, RIGHT KNEE 09/05/2016 JULIETA MEDINAP Ot S83.241A OTH TEAR OF MEDIAL MENISCUS, CURRENT INJ 09/05/2016 JULIETA MEDINA ACID ADJUSTER Ot X58.XXXA EXPOSURE TO OTHER SPECIFIED FACTORS, INI 09/05/2016 JULIETA MEDINA ACID ADJUSTER Ot Y99. 8 OTHER EXTERNAL CAUSE STATUS 08/19/2018 RAFFI RAMIREZ APRN Ot F32 .9 MAJOR DEPRESSIVE DISORDER, SINGLE EPISOD 08/19/2018 RAFFI RAMIREZ APRN Ot G89.29 OTHER CHRONIC PAIN 08/19/2018 RAFFI RAMIREZ APRN Ot M54 .5 LOW BACK PAIN 08/19/2018 RAFFI RAMIREZ APRN Ot Z79.52 LINESPERSON (CURRENT) USE OF SYSTEMIC STER 08/19/2018 RAFFI RAMIREZ APRN Ot Z87.19 PERSONAL HISTORY OF OTHER DISEASES OF TH 08/19/2018 RAFFI RAMIREZ DRIVER/REFUSE COLLECTOR Ot Z88 .1 ALLERGY STATUS TO OTHER ANTIBIOTIC AGENT 08/19/2018 RAFFI RAMIREZ DRIVER/REFUSE COLLECTOR Ot Z90.89 ACQUIRED ABSENCE OF OTHER ORGANS 08/19/2018 RAFFI RAMIREZ DRIVER/REFUSE COLLECTOR Ot Z98.890 OTHER SPECIFIED POSTPROCEDURAL STATES 08/21/2018 RAFFI RAMIREZ APRN Ot F32 .9 MAJOR DEPRESSIVE DISORDER, SINGLE EPISOD 08/21/2018 RAFFI RAMIREZ APRN Ot G89.29 OTHER CHRONIC PAIN 08/21/2018 RAFFI RAMIREZ APRN Ot M54 .5 LOW BACK PAIN 08/21/2018 RAFFI RAMIREZ APRN Ot Z79.52 LINESPERSON (CURRENT) USE OF SYSTEMIC STER 08/21/2018 RAFFI RAMIREZ APRN Ot Z87.19 PERSONAL HISTORY OF OTHER DISEASES OF 08/21/2018 RAFFI RAMIREZ APRN Ot Z88 .1 ALLERGY STATUS TO OTHER ANTIBIOTIC AGENT 08/21/2018 RAFFI RAMIREZ APRN Ot Z90.89 ACQUIRED ABSENCE OF OTHER ORGANS 08/21/2018 RAFFI RAMIREZ APRN Ot Z98.890 OTHER SPECIFIED POSTPROCEDURAL STATES 08/23/2018 ELIA ANTONIO DRIVER/REFUSE COLLECTOR Ot M54.14 RADICULOPATHY, THORACIC REGION 08/23/2018 ELIA ANTONIO DRIVER/REFUSE COLLECTOR Ot M54.17 RADICULOPATHY, LUMBOSACRAL REGION 08/23/2018 ELIA ANTONIO DRIVER/REFUSE COLLECTOR Ot M54.40 LUMBAGO WITH SCIATICA, UNSPECIFIED SIDE 08/23/2018 ELIA ANTONIO DRIVER/REFUSE COLLECTOR Ot M54.6 PAIN IN THORACIC SPINE 08/23/2018 ELIA ANTONIO DRIVER/REFUSE COLLECTOR Ot Z98.89 OTHER SPECIFIED POSTPROCEDURAL STATES 08/23/2018 JULIETA MEDINA ACID ADJUSTER Ot M17. 11 UNILATERAL PRIMARY OSTEOARTHRITIS, RIGHT 08/23/2018 JULIETA MEDINA ACID ADJUSTER Ot M25.461 EFFUSION, RIGHT KNEE 08/23/2018 JULIETA MEDINA ACID ADJUSTER Ot S83.241A OTH TEAR OF MEDIAL MENISCUS, CURRENT INJ 08/23/2018 JULIETA MEDINA ACID ADJUSTER Ot X58.XXXA EXPOSURE TO OTHER SPECIFIED FACTORS, INI 08/23/2018 JULIETA MEDINA ACID ADJUSTER Ot Y99. 8 OTHER EXTERNAL CAUSE STATUS 08/23/2018 ANTONIOELIA R DRIVER/REFUSE COLLECTOR Ot M54.14 RADICULOPATHY, THORACIC REGION 08/23/2018 ANTONIOELIA R DRIVER/REFUSE COLLECTOR Ot M54.17 RADICULOPATHY, LUMBOSACRAL REGION 08/23/2018 ANTONIOELIA R DRIVER/REFUSE COLLECTOR Ot M54.40 LUMBAGO WITH SCIATICA, UNSPECIFIED SIDE 08/23/2018 ANTONIOELIA R DRIVER/REFUSE COLLECTOR Ot M54.6 PAIN IN THORACIC SPINE 08/23/2018 ANTONIOELIA R DRIVER/REFUSE COLLECTOR Ot Z98.89 OTHER SPECIFIED POSTPROCEDURAL STATES 08/23/2018 JULIETA MEDINAP Ot M17. 11 UNILATERAL PRIMARY OSTEOARTHRITIS, RIGHT 08/23/2018 JULIETA MEDINA Ot M25.461 EFFUSION, RIGHT KNEE 08/23/2018 JULIETA MDEINA Ot S83.241A OTH TEAR OF MEDIAL MENISCUS, CURRENT INJ 08/23/2018 JULIETA MEDINAP Ot X58.XXXA EXPOSURE TO OTHER SPECIFIED FACTORS, INI 08/23/2018 JULIETA MEDINAP Ot Y99. 8 OTHER EXTERNAL CAUSE STATUS 08/26/2018 ANTONIOELIA R DRIVER/REFUSE COLLECTOR Ot M54.14 RADICULOPATHY, THORACIC REGION 08/26/2018 ANTONIOELIA R DRIVER/REFUSE COLLECTOR Ot M54.17 RADICULOPATHY, LUMBOSACRAL REGION 08/26/2018 ANTONIOELIA R DRIVER/REFUSE COLLECTOR Ot M54.40 LUMBAGO WITH SCIATICA, UNSPECIFIED SIDE 08/26/2018 ANTONIOELIA R DRIVER/REFUSE COLLECTOR Ot M54.6 PAIN IN THORACIC SPINE 08/26/2018 ANTONIOELIA R DRIVER/REFUSE COLLECTOR Ot Z98.89 OTHER SPECIFIED POSTPROCEDURAL STATES 08/26/2018 JULIETA MEDINA Ot M17. 11 UNILATERAL PRIMARY OSTEOARTHRITIS, RIGHT 08/26/2018 JULIETA MEDINA Ot M25.461 EFFUSION, RIGHT KNEE 08/26/2018 JULIETA MEDINA Ot S83.241A OTH TEAR OF MEDIAL MENISCUS, CURRENT INJ 08/26/2018 JULIETA MEDINA Ot X58.XXXA EXPOSURE TO OTHER SPECIFIED FACTORS, INI 08/26/2018 MEDINA, JULIETA D ACID ADJUSTER Ot Y99. 8 OTHER EXTERNAL CAUSE STATUS 09/10/2018 ANTONIO, ELIA R DRIVER/REFUSE COLLECTOR Ot M54.14 RADICULOPATHY, THORACIC REGION 09/10/2018 ANTONIOELIA R DRIVER/REFUSE COLLECTOR Ot M54.17 RADICULOPATHY, LUMBOSACRAL REGION 09/10/2018 ANTONIOELIA Hernández R DRIVER/REFUSE COLLECTOR Ot M54.40 LUMBAGO WITH SCIATICA, UNSPECIFIED SIDE 09/10/2018 ELIA ANTONIO R DRIVER/REFUSE COLLECTOR Ot M54.6 PAIN IN THORACIC SPINE 09/10/2018 ANTONIOELIA R DRIVER/REFUSE COLLECTOR Ot Z98.89 OTHER SPECIFIED POSTPROCEDURAL STATES 09/10/2018 JULIETA MEDINA ACID ADJUSTER Ot M17. 11 UNILATERAL PRIMARY OSTEOARTHRITIS, RIGHT 09/10/2018 JULIETA MEDINA ACID ADJUSTER Ot M25.461 EFFUSION, RIGHT KNEE 09/10/2018 JULIETA MEDINA ACID ADJUSTER Ot S83.241A OTH TEAR OF MEDIAL MENISCUS, CURRENT INJ 09/10/2018 JULIETA MEDINA ACID ADJUSTER Ot X58.XXXA EXPOSURE TO OTHER SPECIFIED FACTORS, INI 09/10/2018 JULIETA MEDINA ACID ADJUSTER Ot Y99. 8 OTHER EXTERNAL CAUSE STATUS 09/11/2018 RAFFI RAMIREZ APRN Ot F32 .9 MAJOR DEPRESSIVE DISORDER, SINGLE EPISOD 09/11/2018 RAFFI RAMIREZ DRIVER/REFUSE COLLECTOR Ot G89.29 OTHER CHRONIC PAIN 09/11/2018 RAFFI RAMIREZ APRN Ot M54 .5 LOW BACK PAIN 09/11/2018 RAFFI RAMIREZ APRN Ot Z79.52 SNF (CURRENT) USE OF SYSTEMIC STER 09/11/2018 RAFFI RAMIREZ DRIVER/REFUSE COLLECTOR Ot Z87.19 PERSONAL HISTORY OF OTHER DISEASES OF TH 09/11/2018 RAFFI RAMIREZ DRIVER/REFUSE COLLECTOR Ot Z88 .1 ALLERGY STATUS TO OTHER ANTIBIOTIC AGENT 09/11/2018 RAFFI RAMIREZ APRN Ot Z90.89 ACQUIRED ABSENCE OF OTHER ORGANS 09/11/2018 RAFFI RAMIREZ APRN Ot Z98.890 OTHER SPECIFIED POSTPROCEDURAL STATES 05/27/2019 KIMANI POLLACK MD Ot M47.816 SPONDYLOSIS W/O MYELOPATHY OR RADICULOPA 05/27/2019 KIMANI POLLACK MD Ot M48.061 SPINAL STENOSIS, LUMBAR REGION WITHOUT N 05/27/2019 RANJEET SOLOMON, KIMANI Garcia Ot M48.07 SPINAL STENOSIS, LUMBOSACRAL REGION 05/27/2019 RANJEET SOLOMON, KIMANI Garcia Ot M51.26 OTHER INTERVERTEBRAL DISC DISPLACEMENT, 05/27/2019 KIMANI POLLACK MD Ot M99.73 CONN TISS AND DISC STENOS OF INTVRT FORA 05/27/2019 KIMANI POLLACK MD Ot Z98.890 OTHER SPECIFIED POSTPROCEDURAL STATES Procedures Code Description [place] [address] [facility] (IN-HOUSE) 05/07/2014 71007 SYPH ILLIS[facility] 05/07/2014 39227 HIV (STATE LAB) 05/07/2014 74700 GC/C HLAM PROBE ([facility]) 05/07/2014 14409 PAP SMEAR 05/07/2014 Q0091 PAP SMEAR OBTAIN SMEAR 05/07/2014 37348 HEPA TITIS PROFILE 05/08/2014 51884 CULT URE UROGENITAL 05/10/2014 63250 PREG JOSEPH TEST, URINE (IN- HOUSE) 05/28/2014 97546 COLP W/ BX & ECC 05/28/2014 84488 PSYT X PT&/FAMILY 45 MINUTES 03/19/2015 Results Test Result Range CBC With Differential/Platelet - 7 10:22 WBC 14.1 x10E3/uL 3.4-10.8 RBC 5.16 x10E6/uL 3.77-5.28 Hemoglobin 14.7 g/dL 11.1-15.9 Hematocrit 44.8 % 34.0-46.6 MCV 87 fL 79-97 MCH 28.5 pg 26.6-33.0 MCHC 32.8 g/dL 31.5-35.7 RDW 14.0 % 12.3-15.4 Platelets 278 x10E3/uL 150-379 Neutrophils 70 % Lymphs 21 % Monocytes 7 % Eos 1 % Basos 0 % Neutrophils (Absolute) 9.9 x10E3/uL 1.4- 7.0 Lymphs (Absolute) 2.9 x10E3/uL 0.7-3.1 Monocytes(Absolute) 1.0 x10E3/uL 0.1-0.9 Eos (Absolute) 0.2 x10E3/uL 0.0-0.4 Baso (Absolute) 0.1 x10E3/uL 0.0-0.2 Immature Granulocytes 1 % Immature Grans (Abs) 0.1 x10E3/uL 0.0-0. 1 Comp. Metabolic Panel (14) - 05/02/17 10 :22 Glucose, Serum 90 mg/dL 65-99 BUN 15 mg/dL 6-20 Creatinine, Serum 0.74 mg/dL 0.57-1.00 eGFR If NonAfricn Am 105 mL/min/1.73 >59 eGFR If Africn Am 121 mL/min/1.73 >5 9 BUN/Creatinine Ratio 20 9-23 Sodium, Serum 141 [...] - 05/02/17 10:22 Insulin 13.0 uIU/mL 2.6-24.9 Complete blood count (CBC) with automate d white blood cell (WBC) differential - 08/19/18 15:21 Blood leukocytes automated count (number/volume) 13.6 10*3/uL 4.3-11.0 Blood erythrocytes automated count (number/volume) 4.85 10*6/uL 4.35-5.85 Venous blood hemoglobin measurement (mass/volume) 14.6 g/dL 11.5-16.0 Blood hematocrit (volume fraction) 43 % 35-52 Automated erythrocyte mean corpuscular volume 88 [ foz_us] 80-99 Automated erythrocyte mean corpuscular h emoglobin (mass per erythrocyte) 30 pg 25-34 Automated erythrocyte mean corpuscular h emoglobin concentration measurement (mass/volume) 34 g/dL 32-36 Automated erythrocyte distribution width ratio 13. 5 % 10.0- 14.5 Automated blood platelet count (count/volume) 326 10*3/uL 130-400 Automated blood platelet mean volume measurement 10.5 [foz_us] 7.4-10.4 Automated blood neutrophils/100 leukocytes 71 % 42-75 Automated blood lymphocytes/100 leukocytes 21 % 12-44 Blood monocytes/100 leukocytes 6 % 0-12 Automated blood eosinophils/100 leukocytes 2 % 0-10 Automated blood basophils/100 leukocytes 0 % 0-10 Blood neutrophils automated count (number/volume) 9.6 10*3 1.8-7.8 Blood lymphocytes automated count (number/volume) 2.8 10*3 1.0-4.0 Blood monocytes automated count (number/volume) 0. 9 10*3 0.0-1.0 Automated eosinophil count 0.2 10*3/uL 0 .0-0.3 Automated blood basophil count (count/volume) 0.0 10*3/uL 0.0-0.1 Encounters ACCT No. Visit Date/Time Discharge Status Pt. Type Provider Facility Loc./Unit Complaint [id number] 03/19/2015 11:40:00 03/19/2015 23:59: 59 CLS Outpatient FARHAD EAGLE APRN [id number] 02/26/2015 14:59:00 02/26/2015 23:59: 59 CLS Outpatient EVIE BENÍTEZ DO [id number] 07/28/2014 11:45:00 07/28/2014 23:59: 59 CLS Outpatient DEION HINKLE MD [id number] 05/28/2014 13:34:00 05/28/2014 23:59: 59 CLS Outpatient DEION HINKLE MD [id number] 05/14/2014 16:58:00 05/14/2014 23:59: 59 CLS Outpatient NOVA OVIEDO APRN [id number] 05/07/2014 15:51:00 05/07/2014 23:59: 59 CLS Outpatient JEANETTE MITCHELL APRN [id number] 05/03/2017 11:08:00 Document Registration [id number] 09/10/2018 09:44:00 23:59:59 CLS Outpatient KIMANI POLLACK MD [facility] RAD LUMBAR RADICULOPATHY [id number] 08/19/2018 14:48:00 018 16:15:00 DIS Emergency RAFFI RAMIREZ DRIVER/REFUSE COLLECTOR [facility] ER BACK PAIN [id number] 08/16/2016 14:15:00 016 23:59:59 CLS Outpatient JULIETA MEDINA ACID ADJUSTER [facility] RAD MEDIAL MENISCUS TEAR RT KNEE [id number] 06/14/2016 13:00:00 016 13:42:00 DIS Outpatient RAOUL NGUYỄN ACID ADJUSTER [facility] REHAB LOW BACK PAIN [id number] 12/24/2015 14:48:00 016 23:59:59 CLS Outpatient ELIA ANTONIO APRN [facility] RAD LUMBAGO WITH A HISTORY OF BACK SURGERY [id number] 11/25/2015 08:57:00 015 10:34:00 DIS Emergency JAYDEN WONG MD [facility] ER [id number] 09/22/2015 16:26:00 015 18:30:00 DIS Emergency KIKE JEFFERSON DO [facility] ER [id number] 10/02/2014 12:28:00 014 15:51:00 DIS Emergency ALISA PALOMARES [facility] ER [id number] 12/17/2015 07:04:00 Document Registration [id number] 02/07/2011 07:30:00 Document Registration [id number] 04/04/2018 10:00:00 04/04/2018 23:59:5 9 CLS Outpatient [facility]
[2020-05-09 11:08] VITALS: BP 129/67
--- NOTE | 2020-05-09 11:36 | ED Cough/URI ---
General Chief Complaint: Cough/Cold/Flu Symptoms Stated Complaint: COUGH/TEMP 99.4 Nursing Triage Note: PATIENT AMBULATORY TO COVID UNIT. PATIENT IS AWAKE AND ALERT X 4 COMPLAINING OF LOW GRADE FEVER OF 99.4 THIS MORNING. PATIENT STATES SHE FAILED HER WORK [employer] AND WAS SENT HERE. SHE HAS HAD COUGH THAT BEGAN LAST NIGHT WITH SORE THROAT AND BODY ACHES. 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 SHE HAS BEEN TO [facility] FREQUENTLY FOR HER CLIENTS AND ALSO ATTENDED A 3 DAYS AGO WITH APPROXIMATELY 100 PEOPLE. 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 Sepsis Screen: Possible Severe Sepsis Risk Source: patient Exam Limitations: no limitations History of Present Illness Date Seen by Provider: May 09, 2020 Time Seen by Provider: 11:17 Initial Comments Here with report of runny nose and congestion with mild cough, sore throat and body aches that started last night but was worse this morning. She failed her screening today as she had fever of 99.8 at work. No known sick contacts that she has been out and about the community including to the store as well as to a . She works with [employer] and has contact with multiple clients. She is concerned about COVID-19 due to symptoms. Timing/Duration: getting worse, other (Last night) Severity/Quality: mild, dry cough Prior Episodes/Possible Cause: no prior episodes Associated Symptoms: cough, fever/chills, muscle aches, nasal congestion, shortness of breath, sore throat Allergies and Home Medications Allergies Coded Allergies: cephalexin (Verified Allergy, Severe, RASH, 11/25/15) Home Medications Ibuprofen 800 Mg Tablet, 800 MG PO q8h PRN for PAIN, (Reported) Methocarbamol 750 Mg Tablet, 750 MG PO Q4H PRN for PAIN-MODERATE TO SEVERE Prescribed by: RAFFI RAMIREZ on 08/19/18 1505 Prednisone 20 Mg Tab, 20 MG PO UD Prescribed by: JAYDEN WONG on 11/25/15 1023 Prednisone 20 Mg Tab, 40 MG PO DAILY Prescribed by: RAFFI RAMIREZ on 08/19/18 1506 Patient Home Medication List Home Medication List Reviewed: Yes Review of Systems Review of Systems Constitutional: see HPI, fever, malaise EENTM: see HPI Respiratory: see HPI Cardiovascular: no symptoms reported Gastrointestinal: no symptoms reported Genitourinary: no symptoms reported Musculoskeletal: joint pain, muscle pain Skin: no symptoms reported Past Nrtpxfm-Orzusq-Ywhxyu Hx Past Med/Social Hx: Reviewed Nursing Past Med/Soc Hx Patient Social History Alcohol Use: Denies Use (And will) Recreational Drug Use: Yes Drug of Choice: pot Smoking Status: Never a Smoker 2nd Hand Smoke Exposure: No Recent Foreign Travel: No Contact w/Someone Who Travel: No Recent Infectious Disease Expo: No Recent Hopitalizations: No Immunizations Up To Date Date of Influenza Vaccine: Sep 25, 2014 Seasonal Allergies Seasonal Allergies: No Past Medical History Surgeries: Yes (BACK SURG X3, RT SHOULDER, RT CARPAL TUNNEL) Section, Orthopedic, Tonsillectomy Respiratory: No Cardiac: Yes (HX OF PERICARDITIS WHEN YOUNG) Neurological: Yes (OF THE FEET) Neuropathy Reproductive Disorders: No Genitourinary: No Gastrointestinal: Yes Irritable Bowel Musculoskeletal: Yes Chronic Back Pain Endocrine: No Cancer: No Psychosocial: Yes Depression Integumentary: No Blood Disorders: No Family Medical History Reviewed Nursing Family Hx No Pertinent Family Hx Physical Exam Vital Signs - First Documented Capillary Refill : Less Than 3 Seconds Height: 5'4.00" Weight: 210lbs. oz. 95.691138ug; 43.00 BMI Method:Stated General Appearance: WD/WN, no apparent distress HEENT: PERRL/EOMI, pharyngeal erythema; No tonsillar exudate Neck: full range of motion, supple Respiratory: lungs clear, normal breath sounds Cardiovascular: regular rate, rhythm, no murmur Gastrointestinal: non tender, soft Neurologic/Psychiatric: alert, oriented x 3 Skin: normal color, warm/dry Progress/Results/Core Measures Suspected Sepsis Recent Fever Within 48 Hours: Yes Infection Criteria Present: Suspected New Infection New/Unexplained Altered Menta: No Sepsis Screen: Possible Severe Sepsis Risk SIRS Temperature: Pulse: 94 Respiratory Rate: 16 Blood Pressure 129 /67 Mean: 87 Results/Orders My Orders Orders - TOMMY MEYERS MD Coronavirus Sars-Cov-2 So 2018 (05/09/20 11:10) Vital Signs/I&O 05/09/20 05/09/20 11:08 11:08 Temp 37.1 Pulse 94 Resp 16 B/P (MAP) 129/67 (87) Pulse Ox 97 O2 Delivery Room Air Room Air Capillary Refill : Less Than 3 Seconds Blood Pressure Mean: 87 Progress Note : Progress Note Seen and evaluated. COVID-19 swab done. Discharged home with return precautions. Patient verbalize understanding instructions and agreement with plan. No indication for admission and has normal O2 sat and normal vital signs otherwise. Departure Impression Primary Impression: Upper respiratory infection Qualified Codes: J06.9 - Acute upper respiratory infection, unspecified Additional Impression: COVID-19 evaluation Disposition: 01 HOME, SELF-CARE Condition: Stable Departure-Patient Inst. Decision time for Depature: 11:32 Referrals: [facility] [place] (PCP/Family) Primary Care Physician Patient Instructions: Coronavirus Disease 2019 (COVID-19) (DC), Viral Upper Respiratory Infection, Adult (DC) Add. Discharge Instructions: All discharge instructions reviewed with patient and/or family. Voiced understanding. Drink plenty of fluids and get plenty of rest. You have been tested for COVID-19 and you will need to be off work and remain isolated until 3 days after symptoms resolve if testing is negative or as directed by the health Department if the testing is positive. You should have test results in 24-48 hours. Return for worse pain, fever, vomiting, weakness, breathing problems or other concerns as needed. You may take ibuprofen 600 mg every 8 hours as needed for fever or pain. You may take Tylenol/acetaminophen 1000 mg every 8 hours as needed for fever or pain. TOMMY MEYERS MD May 09, 2020 11:36
--- NOTE | 2020-05-09 11:37 | NUR ---
PATIENT TESTED FOR COVID-19 AND SENT TO LAB.
== END 2020-05-09 11:44 | disposition home or self-care (01) ==
LOC: ER 10:23 → EDUNIT# 10:23 → ER 11:44
DX: J06.9 Acute upper respiratory infection, unspecified (principal); Z20.828 Contact with and (suspected) exposure to other viral communicable diseases; Z88.1 Allergy status to other antibiotic agents; Z79.52 Long term (current) use of systemic steroids
CPT/HCPCS: 99282; U0002; 87635

== ENCOUNTER → 2020-11-24 | Outpatient (CLI) | payer OTHER ==
[~2020-11-24] MED LIST changes: +GADOBUTROL 15 MMOL/15 ML (GADAVIST) VIAL IV ONE
--- NOTE | 2020-11-24 11:45 | Diagnostic Imaging Report ---
PROCEDURE: MRI lumbar spine with and without contrast. TECHNIQUE: Multiplanar, multisequence MRI of the lumbar spine was performed with and without contrast. INDICATION: Low back pain. Patient has had prior laminectomy. COMPARISON: Correlation is made with prior MRI of the lumbar spine from 09/10/2018. FINDINGS: Curvature and alignment of the lumbar spine is normal. Decompression laminectomy at L4 and L5 is again noted. There is also osseous fusion between L4 and L5 vertebral bodies. Marrow signal intensity is unremarkable apart from Modic changes at the L3-L4 level. There is no geographic marrow lesion. The vertebral body heights are maintained without acute compression fracture. There is some disc desiccation and degenerative changes at L3-L4 level as well as L5-S1 level, similar to prior exam. The conus is unremarkable at the T12-L1 level. T12-L1: The central canal is widely patent. Neuroforamina are widely patent. L1-L2: Central canal is patent. There is some ligamentous thickening present. Neuroforamina are patent. L2-L3: There is ligamentous thickening. Central canal remains widely patent. Neuroforamina are patent. L3-L4: A prominent wide-based midline disc bulge is again noted, producing severe central canal stenosis, similar to exam from 2018. Significant narrowing of the lateral recesses bilaterally is again noted. There is also significant bilateral neuroforaminal stenosis. L4-L5: Previously noted right paramidline disc indenting the ventral thecal sac and producing significant right lateral recess narrowing is noted and similar to prior exam. There is moderate bilateral neuroforaminal stenosis. L5-S1: Central canal is patent. There is broad-based disc/osteophyte complex. This does produce moderate stenosis of the left lateral recess. There is also significant bilateral neuroforaminal stenosis. Post contrast imaging was also performed. No abnormal enhancement is seen. No findings to suggest discitis or osteomyelitis are identified. No fluid collection is identified. IMPRESSION: Postop changes of decompression laminectomy at L4-L5 with vertebral body fusion. There continues to be severe central canal stenosis at L3-L4, similar to prior exam. Right paramidline disc at L4-L5 is similar to prior exam. There are no findings to suggest discitis or vertebral osteomyelitis. Dictated by: Dictated on workstation # [id number]
== END ==
LOC: RAD 08:58
PROVIDERS: ATTEND Neurological Surgery
DX: M48.061 Spinal stenosis, lumbar region without neurogenic claudication (principal); Z98.1 Arthrodesis status; M46.26 Osteomyelitis of vertebra, lumbar region
CPT/HCPCS: 72158

== ENCOUNTER → 2021-11-10 | Outpatient (CLI) | payer OTHER ==
[~2021-11-10] MED LIST changes: -GADOBUTROL 15 MMOL/15 ML (GADAVIST) VIAL IV ONE
== END ==
LOC: CARD 14:30
PROVIDERS: ATTEND Internal Medicine Cardiovascular Disease
DX: I11.9 Hypertensive heart disease without heart failure (principal); I34.0 Nonrheumatic mitral (valve) insufficiency; I25.10 Atherosclerotic heart disease of native coronary artery without angina pectoris
CPT/HCPCS: 93306

== ENCOUNTER → 2021-12-28 | Outpatient (CLI) | payer OTHER ==
[2021-12-28 10:10] VITALS: BP 118/86
--- NOTE | 2021-12-28 11:42 | Cardiology Stress Test Report ---
Stress Test Report Date of Procedure/Referring: Date of Procedure: Dec 28, 2021 PCP Lisa Freed MD Admitting Physician [facility] Indications: palpitation Baseline Heart Rate: 62 Baseline Blood Pressure: Blood Pressure Systolic: 118 Blood Pressure Diastolic: 86 Baseline EKG: Baseline EKG: NSR Summary/Conclusion: Summary: In summary, the patient started exercising with a baseline heart rate, blood pressure and EKG mentioned above Patient was able to exercise for a total of 5 minutes on Aidan protocol, METs 7 Maximum heart rate 161 Maximum blood pressure 168/67 Stress EKG, Minimal nondiagnostic changes Recovery EKG , Return to baseline Conclusion: 1. Good exercise tolerance for a total of 5 minutes on Aidan protocol, 7 METs, achieving 89 percent of maximum expected heart rate 2. Minimal nondiagnostic EKG changes with exercise returned to baseline during recovery 3. No arrhythmia was noted LISA FREED MD Dec 28, 2021 11:42
== END ==
LOC: CARD 14:00
PROVIDERS: ATTEND Internal Medicine Cardiovascular Disease
DX: R00.2 Palpitations (principal); R07.9 Chest pain, unspecified
CPT/HCPCS: 93017